=== PATIENT | male | born 1980 | race Caucasian/White ===

== ENCOUNTER 2017-07-14 10:33 | Inpatient (IN) | payer BC ==
[2017-07-14] VITALS (15 sets, daily range): BP systolic 102–163; BP diastolic 59–96
[~2017-07-14] VITALS: Ht 175.3 cm; Wt 152.6 kg
[~2017-07-14 10:33] MED LIST: ASP81CT GT; ASP81CT PO; DIGO0.25 PO; DIGO250T PO; FURO20TA4 PO; KCL20TCR PO; LOSA100T16 PO; LOSA100T7 PO; METO25TA PO; POTA20LI2 PO
[2017-07-14] MEDS ORDERED: ADENOSINE 6 MG/2 ML (ADENOCARD) VIAL IV ONE (10:38)
[2017-07-14] MEDS ORDERED: NS IV 500 ML 500 ML ONE (10:38)
[2017-07-14] MEDS ORDERED: DILTIAZEM 25 MG/5 ML INJ (CARDIZEM) VIAL ONE (10:46)
[2017-07-14] MEDS ORDERED: DILTIAZEM 100 MG/VIAL (CARDIZEM) ADD-VANTAGE IV ONE ×2 (10:54→15:53)
[2017-07-14] MEDS ORDERED: SODIUM CHLORIDE (ADD-VANTAGE) 100 ML IV ONE ×2 (10:54→15:53)
[2017-07-14] MEDS ORDERED: ASPIRIN 81 MG CHEW (CHILDREN'S ASA) PO ONE (11:00)
--- NOTE | 2017-07-14 11:10 | ED Cardiac General ---
History of Present Illness General Chief Complaint: Cardiac/General Problems Stated Complaint: HEART BEATING TOO FAST PER DR PENA Source: patient, family Exam Limitations: no limitations History of Present Illness Time seen by provider: 11:00 Initial Comments The patient is a 36-year-old white male who presents with complaints of palpitations and shortness of breath. He reports that this began several days ago. He saw Dr. Chavez 2 days ago and confirmed that he had a rapid heart rate. Apparently no medications were prescribed. This continued. He has not been able to lie down to breathe or sleep and spent last night sitting up. He had decided at this point that he had to have help. He denies previous heart disease. He is diabetic and obese. He denies chest pain even with the palpitations. Timing/Duration: 2-3 days Modifying Factors: improves with exercise, improves with lying down Associated Systoms: Shortness of Air, Weakness Allergies and Home Medications Allergies Coded Allergies: No Known Drug Allergies (Unverified , 08/27/13) Home Medications Aspirin 81 Mg Chew, 81 MG PO DAILY, (Reported) Digoxin 250 Mcg Tablet, 250 MCG PO DAILY, (Reported) Furosemide 20 Mg Tablet, 60 EACH PO BID, (Reported) TAKE 3 OF THE 20 MG TABLETS TWICE A DAY Losartan Potassium 100 Mg Tablet, 100 MG PO DAILY, (Reported) Metoprolol Succinate 25 Mg Tab.sr.24h, 25 MG PO DAILY, (Reported) Potassium Chloride 20 Meq Tabsr, 20 EACH PO BID, (Reported) Review of Systems Constitutional: see HPI, diaphoresis, dizziness, weakness EENTM: No Symptoms Reported Respiratory: See HPI, Shortness of Air, SOA With Exertion, SOA at Rest Cardiovascular: Palpitations Gastrointestinal: No Symptoms Reported Genitourinary: No Symptoms Reported Musculoskeletal: no symptoms reported Skin: other (swelling of feet and discoloration of the skin in the crew sock area) Psychiatric/Neurological: Anxiety Past Ypqencz-Rpdgwm-Rlvjvg Hx Patient Social History Recent Foreign Travel: No Contact w/Someone Who Travel: No Immunizations Up To Date Date of Influenza Vaccine: Aug 28, 2013 Seasonal Allergies Seasonal Allergies: No HEENT Loss of Vision: Denies Hearing Impairment: Denies Blood Transfusions Adverse Reaction to a Blood Tr: No Family Medical History Significant Family History: Heart Disease, CVA, Hypertension Physical Exam Vital Signs Capillary Refill : General Appearance: Moderate Distress HEENT: Normal ENT Inspection Neck: Normal Inspection (no did not feel anything is the bathroom landing 149 1. The anything to see Nubia like I I was usually likely [place] visit either reveals that there was blood with her that I could not tell or otherwise that) Respiratory: Chest Non Tender, Lungs Clear, Normal Breath Sounds, No Accessory Muscle Use, No Respiratory Distress Cardiovascular: Tachycardia, Other (diaphoresis) Gastrointestinal: Normal Bowel Sounds, No Organomegaly, No Pulsatile Mass, Non Tender Extremity: Other (2+ pedal edema and bronzy discoloration suggestive of chronic venous stasis) Neurologic/Psychiatric: Alert, Oriented x3, No Motor/Sensory Deficits, Normal Mood/Affect Skin: Normal Color, Warm/Dry Lymphatic: No Adenopathy Progress/Results/Core Measures Results/Orders Lab Results Laboratory Tests Test 07/14/17 10:55 07/14/17 11:25 Range/Units White Blood Count 12.1 H 4.3-11.0 10^3/uL Red Blood Count 4.52 4.35-5.85 10^6/uL Hemoglobin 13.9 13.3-17.7 G/DL Hematocrit 44 40-54 % Mean Corpuscular Volume 98 80-99 FL Mean Corpuscular Hemoglobin 31 25-34 PG Mean Corpuscular Hemoglobin Concent 31 L 32-36 G/DL Red Cell Distribution Width 15.8 H 10.0-14.5 % Platelet Count 213 130-400 10^3/uL Mean Platelet Volume 7.4-10.4 FL Neutrophils (%) (Auto) 81 H 42-75 % Lymphocytes (%) (Auto) 11 L 12-44 % Monocytes (%) (Auto) 7 0-12 % Eosinophils (%) (Auto) 1 0-10 % Basophils (%) (Auto) 1 0-10 % Neutrophils # (Auto) 9.7 H 1.8-7.8 X 10^3 Lymphocytes # (Auto) 1.3 1.0-4.0 X 10^3 Monocytes # (Auto) 0.8 0.0-1.0 X 10^3 Eosinophils # (Auto) 0.1 0.0-0.3 10^3/uL Basophils # (Auto) 0.1 0.0-0.1 10^3/uL My Orders Orders - NICHO AGUILAR MD Adenosine Injection (Adenocard Injection (07/14/17 10:38) Ns Iv 500 Ml (Sodium Chloride 0.9%) (07/14/17 10:38) Ekg Tracing (07/14/17 10:53) Continuous Ekg Monitoring (07/14/17 10:53) Diltiazem Injection (Cardizem Injection) (07/14/17 10:46) Diltiazem Drip (Cardizem Drip) (07/14/17 10:54) Sodium Chloride (Add-[place]) (Ns (Add-V (07/14/17 10:54) Departure Communication (Admissions) Progress Notes 1130 discussed with STUART Morris. The patient will be transferred to the ICU. He recommends metoprolol 5 mg IV now and every 3 hours. The rate remains in the 155 range. It is now noted that he is showing signs of relative hypoxia. Chest x-ray as ready by me shows cardiomegaly and diffuse interstitial edema. Cosleep Impression Impression: Primary Impression: supraventricular tachycardia Disposition: ADMITTED INPATIENT Condition: Stable/Unchanged Admissions Decision to Admit Reason: Admit from ER (General) Decision to Admit/Date: Jul 14, 2017 Time/Decision to Admit Time: 11:36 Transfer Time Spoke to Accepting Phy: 11:37 Departure-Patient Inst. Referrals: TATA CHAVEZ MD (PCP/Family) Primary Care Physician NICHO AGUILAR MD Jul 14, 2017 11:09
[2017-07-14 11:15] LABS: BASOPHILS # (AUTO) 0.1 10^3/uL (0.0-0.1); BASOPHILS % (AUTO) 1 % (0-10); EOSINOPHILS # (AUTO) 0.1 10^3/uL (0.0-0.3); EOSINOPHILS % (AUTO) 1 % (0-10); LYMPHOCYTES # (AUTO) 1.3 X 10^3 (1.0-4.0); LYMPHOCYTES % (AUTO) 11 % (12-44); MEAN CORPUSCULAR HEMOGLOBIN 31 PG (25-34); MEAN CORPUSCULAR HGB CONC 31 G/DL (32-36); MEAN CORPUSCULAR VOLUME 98 FL (80-99); MONOCYTES # (AUTO) 0.8 X 10^3 (0.0-1.0); MONOCYTES % (AUTO) 7 % (0-12); NEUTROPHILS # (AUTO) 9.7 X 10^3 (1.8-7.8); NEUTROPHILS % (AUTO) 81 % (42-75); PLATELET COUNT 213 10^3/uL (130-400); RED BLOOD COUNT 4.52 10^6/uL (4.35-5.85); RED CELL DISTRIBUTION WIDTH 15.8 % (10.0-14.5); WHITE BLOOD COUNT 12.1 10^3/uL (4.3-11.0)
[2017-07-14] MEDS ORDERED: meTOprolol 5 MG/5 ML (LOPRESSOR) VIAL ONE (11:25)
[2017-07-14] MEDS ORDERED: FUROSEMIDE 40 MG/4 ML INJ (LASIX) ONE (11:33)
--- NOTE | 2017-07-14 11:40 | Diagnostic Imaging Report ---
INDICATION: Tachycardia. FINDINGS: There is enlargement of the cardiac silhouette, prominence of the vascularity, and five lobe mixed interstitial and airspace opacity suspicious for pulmonary edema. There is slight hazy indistinctness to the costophrenic angles which may reflect small volumes of pleural fluid. IMPRESSION: Abnormality suggests failure pattern with cardiomegaly, venous hypertension, pulmonary edema, and possible pleural fluid. Dictated by: Dictated on workstation # [id number]
[2017-07-14] MEDS ORDERED: FUROSEMIDE 40 MG/4 ML INJ (LASIX) IVP ONE (11:45)
[2017-07-14 11:48] LABS: INR 1.1 (0.8-1.4); PROTHROMBIN TIME PATIENT 14.3 SEC (12.2-14.7)
[2017-07-14 11:56] LABS: ALANINE AMINOTRANSFERASE 76 U/L (0-55); ALBUMIN 4.1 GM/DL (3.2-4.5); ANION GAP 13 MMOL/L (5-14); ASPARTATE AMINO TRANSFERASE 67 U/L (5-34); BILIRUBIN,TOTAL 1.4 MG/DL (0.1-1.0); BLOOD UREA NITROGEN 18 MG/DL (7-18); BUN/CREATININE RATIO 18; CALCIUM 9.4 MG/DL (8.5-10.1); CARBON DIOXIDE 24 MMOL/L (21-32); CHLORIDE 101 MMOL/L (98-107); CREATININE SERUM 0.99 MG/DL (0.60-1.30); GFR ESTIMATED > 60; GLUCOSE 330 MG/DL (70-105); MAGNESIUM 1.9 MG/DL (1.8-2.4); POTASSIUM 4.3 MMOL/L (3.6-5.0); SODIUM 138 MMOL/L (135-145); TOTAL PROTEIN 7.5 GM/DL (6.4-8.2)
[2017-07-14 12:02] LABS: MYOGLOBIN SERUM 49.7 NG/ML (10.0-92.0)
[2017-07-14] MEDS ORDERED: DIGOXIN 0.25 MG/ML (LANOXIN) 2 ML AMP ONE (12:11)
[2017-07-14] MEDS ORDERED: LIDOCAINE UROJET 2% GEL 10 ML PKG ONE (12:19)
[2017-07-14] MEDS ORDERED: HYDR25TA4 PO (12:27)
[2017-07-14] MEDS ORDERED: NIFE-7 PO (12:27)
[2017-07-14] MEDS ORDERED: METF500T4 PO (12:27)
[2017-07-14] MEDS ORDERED: INSU100I10 SQ (12:27)
[2017-07-14] MEDS ORDERED: SPIR25TA3 PO (12:27)
[2017-07-14] MEDS ORDERED: DIGOXIN 0.25 MG/ML (LANOXIN) 2 ML AMP IV NR ×3 (12:30→14:30)
[2017-07-14] MEDS ORDERED: meTOprolol 5 MG/5 ML (LOPRESSOR) VIAL IV SCH (12:30)
[2017-07-14] MEDS ORDERED: CATHETER FLUSH 10 ML SYR IV PRN (12:30)
[2017-07-14 12:49] LABS: BILIRUBIN,URINE NEGATIVE (NEGATIVE); KETONES,URINE NEGATIVE (NEGATIVE); LEUKOCYTE ESTERASE ,URINE 1+ (NEGATIVE); NITRITE,URINE NEGATIVE (NEGATIVE); PH,URINE 5 (5-9); PROTEIN,URINE 3+ (NEGATIVE); UROBILINOGEN,URINE 1 MG/DL (NORMAL)
[2017-07-14 13:00] LABS: SQUAMOUS EPITHELIAL CELL,UR 0-2 /HPF; WBC,URINE 0-2 /HPF
--- NOTE | 2017-07-14 13:30 | Consultation-Cardiology ---
HPI-Cardiology Cardiology Consultation: Date of Consultation 07/14/17 Time Seen by Provider: 13:00 Date of Admission Attending Physician Allison Paredes DO Admitting Physician Juan Ritchie MD Consulting Physician STUART CUELLAR MD, MA, FACP, FACC, FSCAI, CCDS HPI: Chief Complaint: Malaise and shortness of breath HPI: 36 yo man who has not felt well today. Has had malaise and shortness of breath. Denies cp or palp. Went to see his pcp. Was diagnosed with tachycardia and sent to the ER. He has been treated for A Fib/Fl in this ER and feels somewhat better. He has been treated with iv furosemide and supplemental oxygen , as well, today. Has chronic leg swelling Review of Systems-Cardiology Review of Systems Constitutional: As described under HPI Eyes: No vision change Ears/Nose/Throat: No ear discharge, No nasal drainage, No recent hearing loss Respiratory: As described under HPI Cardiovascular: As described under HPI Gastrointestinal: No constipation, No diarrhea, No nausea, No vomiting Genitourinary: No dysuria, No hematuria, No urine frequency changes Musculoskeletal: No back pain, No joint pain Skin: No rash, No ulcerations Psychiatric/Neurological: No seizure, No focal weakness Hematologic: No bleeding abnormalities [facility] Hx Patient Social History Alcohol Use: Denies Use Recreational Drug Use: No Smoking Status: Never a Smoker Recent Foreign Travel: No Recent Infectious Disease Expo: No Hospitalization with Isolation: Denies Physical Abuse Screen: No Sexual Abuse: No Immunizations Up To Date Date of Influenza Vaccine: Aug 28, 2013 Past Medical History PMH As described under Assessment. Family Medical History Family Medical History: He does not report fam h/o or early CAD or SCD Allergies and Home Medications Allergies Coded Allergies: No Known Drug Allergies (Unverified , 08/27/13) Home Medications Aspirin 81 Mg Chew, 81 MG PO DAILY, (Reported) Hydrochlorothiazide 25 Mg Tablet, (Reported) Insulin Glargine,Hum.rec.anlog 100 Unit/1 Ml Insuln.pen, 30 UNITS SQ HS, ( Reported) Metformin HCl 500 Mg Tablet, (Reported) Nifedipine 30 Mg Tablet.er, (Reported) Spironolactone 25 Mg Tablet, (Reported) Physical Exam-Cardiology Physical Exam Vital Signs/I&O Vital Sign - Last 12Hours 9/1407/14/17 07/14/17 07/14/17 10:33 10:33 11:06 11:55 Temp 96.1 Pulse 157 156 123 Resp 36 30 30 B/P (MAP) 201/124 141/84 Pulse Ox 91 91 91 91 O2 Delivery Nasal Cannula Nasal Cannula OxyMask O2 Flow Rate 4.00 4.00 4.00 4.00 FiO2 89 07/14/17 12:58 O2 Delivery OxyMask O2 Flow Rate 8.00 Capillary Refill : Less Than 3 Seconds Constitutional: well-developed, well-nourished, other (obese) HEENT: PERRL, EOMI, No xanthelasmas are seen Neck: carotid pulses are 2 + bilaterally, with good upstrokes Respiratory: No accessory muscle use, other (fair air entry; some basal fine and coarse crackles) Cardiovascular: irregularly irregular, S1 and S2, systolic murmur (faint YOU at cardiac base) Gastrointestinal: No tender, soft, No guarding, No rebound, audible bowel sounds Extremities: No clubbing, No cyanosis, significant edema (1-2 edema of both legs) Neurologic/Psychiatric: oriented x 3, grossly intact, power is 5/5 both on sides Skin: No rash on exposed areas, No ulcerations on exposed areas Data Review Labs Laboratory Tests 07/14/17 10:55: White Blood Count 12.1H, Red Blood Count 4.52, Hemoglobin 13.9, Hematocrit 44, Mean Corpuscular Volume 98, Mean Corpuscular Hemoglobin 31, Mean Corpuscular Hemoglobin Concent 31L, Red Cell Distribution Width 15.8H, Platelet Count 213, Mean Platelet Volume , Neutrophils (%) (Auto) 81H, Lymphocytes (%) (Auto) 11L, Monocytes (%) (Auto) 7, Eosinophils (%) (Auto) 1, Basophils (%) (Auto) 1, Neutrophils # (Auto) 9.7H, Lymphocytes # (Auto) 1.3, Monocytes # (Auto) 0.8, Eosinophils # (Auto) 0.1, Basophils # (Auto) 0.1 07/14/17 11:25: Prothrombin Time 14.3, INR Comment 1.1, Activated Partial Thromboplast Time 28, Sodium Level 138, Potassium Level 4.3, Chloride Level 101, Carbon Dioxide Level 24, Anion Gap 13, Blood Urea Nitrogen 18, Creatinine 0.99, Estimat Glomerular Filtration Rate > 60, BUN/Creatinine Ratio 18, Glucose Level 330H, Calcium Level 9.4, Magnesium Level 1.9, Total Bilirubin 1.4H, Aspartate Amino Transf ( AST/SGOT) 67H, Alanine Aminotransferase (ALT/SGPT) 76H, Alkaline Phosphatase 61 , Myoglobin 49.7, Troponin I < 0.30, B-Type Natriuretic Peptide 364.5H, Total Protein 7.5, Albumin 4.1 07/14/17 12:40: Urine Color AMBERH, Urine Clarity VERY CLOUDYH, Urine pH 5, Urine Specific [place] 1.020, Urine Protein 3+H, Urine Glucose (UA) 3+H, Urine Ketones NEGATIVE , Urine Nitrite NEGATIVE, Urine Bilirubin NEGATIVE, Urine Urobilinogen 1, Urine Leukocyte Esterase 1+H, Urine RBC (Auto) 2+H, Urine RBC 2-5H, Urine WBC 0-2, Urine Squamous Epithelial Cells 0-2, Urine Crystals PRESENTH, Urine Amorphous Sediment FEW LAUREN URATESH, Urine Bacteria FEWH, Urine Casts PRESENT, Urine Hyaline Casts 2-5H, Urine Mucus SMALLH, Urine Culture Indicated NO Laboratory Tests 07/14/17 10:55 07/14/17 11:25 A/P-Cardiology Assessment/Admission Diagnosis PAF with RVR, first diagnosed on 07/14/17, age of onset unknown Ac diastolic CHF Obesity (BMI approx 50) Obesity-hypoventilation syndrome Suspected sleep apnea DM II Hypertension Discussion and Recomendations * iv dilt and dig for vent rate control * BB for prn use if dilt and dig inadequate * Apixaban for stroke prophylaxis * iv diuretics for CHF * Echo to eval LV and valve function * Advised efforts at wgt loss * Advised sleep studies Clinical Quality Measures DVT/VTE Risk/Contraindication: Risk Factor Score Per Nursin RFS Level Per Nursing on Admit: 2=Moderate STUART CUELLAR MD FACP FAC CCDS Jul 14, 2017 13:30
[2017-07-14] MEDS ORDERED: FUROSEMIDE 40 MG/4 ML INJ (LASIX) IVP NR (13:45)
[2017-07-14] MEDS ORDERED: KCL 20 MEQ TAB (K-DUR) PO NR (13:45)
[2017-07-14] MEDS ORDERED: ASPI-983 PO (14:27)
[2017-07-14] MEDS: CATHETER FLUSH 10 ML SYR IV SCH ×2 (14:30→22:12)
[2017-07-14] MEDS ORDERED: NS (IVPB) 50 ML ONE (15:07)
[2017-07-14] MEDS ORDERED: VANCOMYCIN INJECTION 0.1 MG in NS (IVPB) 250 ML IV SCH (15:30)
[2017-07-14] MEDS ORDERED: PIPERACILLIN/TAZOBACTAM 4.5 GM/NS 100 ML IV NR ×2 (15:45)
[2017-07-14] MEDS ORDERED: VANCOMYCIN INJECTION 2,250 MG in NS IV 500 ML 500 ML IV NR (16:00)
[2017-07-14] MEDS ORDERED: meTOprolol 5 MG/5 ML (LOPRESSOR) VIAL IV PRN (16:00)
[2017-07-14] MEDS: DEXMEDETOMIDINE INJECTION 400 MCG in NS (IVPB) 100 ML IV SCH (16:05)
--- NOTE | 2017-07-14 16:07 | Diagnostic Imaging Report ---
INDICATION: Respiratory distress. EXAMINATION: Portable erect AP chest at 3:49 p.m. FINDINGS: The appearance of the chest has worsened since the prior exam of 07/14/17 as new areas of pneumonia/atelectasis have developed in both lung bases, particularly on the right. The cardiomegaly and pulmonary congestion, seen on the prior study, are again evident and no different. The mediastinum is not widened. The osseous structures are intact. IMPRESSION: The appearance of the chest has worsened since the prior exam as there is greater involvement of both lower lobes by pneumonia/atelectasis, particularly on the right. There is also persistent cardiomegaly and pulmonary congestion. A followup exam would recommended for continued evaluation. Dictated by: Dictated on workstation # [id number]
[2017-07-14] MEDS ORDERED: DILTIAZEM DRIP 100 MG in SODIUM CHLORIDE (ADD-VANTAGE) 100 ML IV SCH (16:15)
[2017-07-14] MEDS ORDERED: inSUlin (REGULAR) HUMAN 1 UNIT/0.01 ML (CHARGE PER UNIT) ONE ×2 (16:17→16:21)
[2017-07-14] MEDS: inSUlin (REGULAR) HUMAN 1 UNIT/0.01 ML (CHARGE PER UNIT) SC SCH ×3 (16:28→22:12)
[2017-07-14 16:43] LABS: ABG BASE EXCESS 0.6 MMOL/L (-2.5-2.5); ABG HCO3 26 MMOL/L (23-27); ABG OXYGEN SATURATION 97 % (94-100); ABG PCO2 51 MMHG (35-45); ABG PO2 79 MMHG (79-93); ABG TCO2 27.6 MMOL/L (21.0-31.0)
[2017-07-14] MEDS ORDERED: APIXABAN 5 MG (ELIQUIS) TABLET PO NR (16:45)
[2017-07-14 16:47] LABS: ABG PH 7.32 (7.37-7.43)
[2017-07-14 16:48] LABS: PATIENT TEMP 97.9
[2017-07-14] MEDS ORDERED: NON-FORMULARY MEDICATION 1 EA EA (Insulin Glargine,Hum.rec.anlog (Lantus Solostar) 30 UNIT SQ SCH (21:00)
[2017-07-14] MEDS: ASPIRIN E.C. 81 MG (ECOTRIN) TAB PO SCH (22:10)
[2017-07-14] MEDS: PIPERACILLIN SODIUM/TAZOBACTAM 4.5 GM in NS (IVPB) 100 ML IV SCH (22:11)
[2017-07-14] MEDS: inSUlin DETERMIR 1 UNIT/0.01 ML (LEVEMIR) CHARGE PER UNIT SQ SCH (22:11)
[2017-07-14] MEDS ORDERED: guaiFENesin/DM (ROBITUSSIN DM) 10 ML UDC PO PRN (22:45)
[2017-07-15] VITALS (24 sets, daily range): BP systolic 75–186; BP diastolic 55–114
[2017-07-15] MEDS ORDERED: inSUlin ASPART (NovoLOG) 1 UNIT/0.01 ML (CHARGE PER UNIT) SC SCH
[2017-07-15] MEDS ORDERED: CALCIUM CARBONATE 500 MG (TUMS) TAB.CHEW PO PRN (02:30)
[2017-07-15] MEDS ORDERED: ONDANSETRON 4 MG/2 ML (SDV) Z0FRAN ONE (03:24)
[2017-07-15] MEDS ORDERED: ONDANSETRON 4 MG/2 ML (SDV) Z0FRAN IVP PRN (03:45)
[2017-07-15] MEDS: DEXMEDETOMIDINE INJECTION 400 MCG in NS (IVPB) 100 ML IV SCH (04:01)
[2017-07-15] MEDS: VANCOMYCIN 2000 MG/NS 500 ML IVPB IV SCH ×4 (04:01→17:33)
[2017-07-15 04:07] LABS: BASOPHILS % (AUTO) 0 % (0-10); EOSINOPHILS # (AUTO) 0.1 10^3/uL (0.0-0.3); EOSINOPHILS % (AUTO) 0 % (0-10); LYMPHOCYTES # (AUTO) 0.4 X 10^3 (1.0-4.0); LYMPHOCYTES % (AUTO) 3 % (12-44); MEAN CORPUSCULAR HEMOGLOBIN 31 PG (25-34); MEAN CORPUSCULAR HGB CONC 31 G/DL (32-36); MEAN CORPUSCULAR VOLUME 99 FL (80-99); MEAN PLATELET VOLUME 12.1 FL (7.4-10.4); MONOCYTES # (AUTO) 0.9 X 10^3 (0.0-1.0); MONOCYTES % (AUTO) 7 % (0-12); NEUTROPHILS # (AUTO) 12.4 X 10^3 (1.8-7.8); NEUTROPHILS % (AUTO) 90 % (42-75); PLATELET COUNT 182 10^3/uL (130-400); RED BLOOD COUNT 4.29 10^6/uL (4.35-5.85); RED CELL DISTRIBUTION WIDTH 15.5 % (10.0-14.5); WHITE BLOOD COUNT 13.9 10^3/uL (4.3-11.0)
[2017-07-15 04:26] LABS: ALANINE AMINOTRANSFERASE 61 U/L (0-55); ALBUMIN 3.9 GM/DL (3.2-4.5); ANION GAP 16 MMOL/L (5-14); ASPARTATE AMINO TRANSFERASE 31 U/L (5-34); BILIRUBIN,TOTAL 2.2 MG/DL (0.1-1.0); BLOOD UREA NITROGEN 20 MG/DL (7-18); BUN/CREATININE RATIO 23; CALCIUM 9.3 MG/DL (8.5-10.1); CARBON DIOXIDE 25 MMOL/L (21-32); CHLORIDE 99 MMOL/L (98-107); CREATININE SERUM 0.86 MG/DL (0.60-1.30); GFR ESTIMATED > 60; GLUCOSE 255 MG/DL (70-105); PHOSPHORUS 4.3 MG/DL (2.3-4.7); POTASSIUM 4.4 MMOL/L (3.6-5.0); SODIUM 140 MMOL/L (135-145); TOTAL PROTEIN 7.2 GM/DL (6.4-8.2)
[2017-07-15 04:27] LABS: CHOLESTEROL 121 MG/DL (< 200); DIRECT LDL 60 MG/DL (1-129); TRIGLYCERIDES 176 MG/DL (<150); VLDL CHOLESTEROL 35 MG/DL (5-40)
[2017-07-15 04:46] LABS: THYROID STIMULATING HORMONE 1.51 UIU/ML (0.35-4.94)
[2017-07-15 05:01] LABS: EOSINOPHILS % (MANUAL) 1 %; LYMPHOCYTES % (MANUAL) 4 %; NEUTROPHILS % (MANUAL) 91 %
[2017-07-15 05:23] LABS: OCCULT BLOOD NEGATIVE QC NEGATIVE (NEGATIVE); OCCULT BLOOD POSITIVE QC POSITIVE (POSITIVE); OCCULT BLOOD,GASTRIC FLUID POSITIVE (NEGATIVE)
--- NOTE | 2017-07-15 06:04 | Pulmonary Consultation ---
History of Present Illness History of Present Illness Date of Consultation 07/15/17 05:59 Time Seen by Provider: 05:59 Date of Admission History of Present Illness 36yo presented seocndary to [facility] and malaise was found to have tachycardia and sent to the ED. Was found to be in Afib/flutter RVR placed on Cardizem gtt and admitted to ICU. Pt initially required BiPAP was given Lasix which helped oxygenation and is now requiring NC at 3liters. While on BiPAP pt vomited into CPAP mask. Patient has also had ground glass emesis and this was sent for gastric occult testing. I am consulted for ICU management. Allergies and Home Medications Allergies Coded Allergies: No Known Drug Allergies (Unverified , 08/27/13) Home Medications Aspirin 81 Mg Tablet.dr, 81 MG PO HS, (Reported) Hydrochlorothiazide 25 Mg Tablet, 25 MG PO DAILY, (Reported) Insulin Glargine,Hum.rec.anlog 100 Unit/1 Ml Insuln.pen, 30 UNITS SQ HS, ( Reported) Metformin HCl 500 Mg Tablet, 500 MG PO TIDWM, (Reported) Nifedipine 30 Mg Tablet.er, 30 MG PO BID, (Reported) Spironolactone 25 Mg Tablet, 25 MG PO DAILY, (Reported) Past Rxktjlg-Tdcxoh-Swjmxw Hx Patient Social History Alcohol Use: Denies Use Recreational Drug Use: No Smoking Status: Never a Smoker Recent Foreign Travel: No Contact w/Someone Who Travel: No Recent Infectious Disease Expo: No Recent Hopitalizations: No Physical Abuse: No Sexual Abuse: No Immunizations Up To Date Date of Influenza Vaccine: Aug 28, 2013 Seasonal Allergies Seasonal Allergies: No Surgeries History of Surgeries: No Respiratory History of Respiratory Disorde: No Cardiovascular History of Cardiac Disorders: Yes (CHF) Cardiac Disorders: Hypertension Neurological History of Neurological Disord: No Gastrointestinal History of Gastrointestinal Di: No Musculoskeletal History of Musculoskeletal Dis: No Endocrine History of Endocrine Disorders: Yes Endocrine Disorders: Diabetes, Insulin dep HEENT History of HEENT Disorders: No Loss of Vision: Denies Hearing Impairment: Denies Cancer History of Cancer: No Psychosocial History of Psychiatric Problem: No Suicide Risk Score: 0 Integumentary History of Skin or Integumenta: No Blood Transfusions History of Blood Disorders: No Adverse Reaction to a Blood Tr: No Family Medical History Significant Family History: Heart Disease, CVA, Hypertension Review of Systems Time Seen by Provider: 06:13 Constitutional: Sweats, Weakness, Malaise, No: Fever, Chills, Other Eyes: No: Pain, Vision change, Conjunctivae inflammation, Eyelid inflammation, Other, Redness ENT: No: Ear pain, Ear discharge, Nose pain, Nose discharge, Nose congestion, Mouth pain, Mouth swelling, Throat pain, Throat swelling, Other Respiratory: Cough, Dry, Shortness of breath, SOB with excertion Cardiovascular: Palpitations, Orthopnea, Paroxysmal Noc. Dyspnea, Edema, Lt Headedness Gastrointestinal: Nausea, Vomiting, Constipation, No: Abdominal Pain, Diarrhea , Melena, Hematochezia, Other Genitourinary: No Dysuria, No Frequency, No Incontinence, No Hematuria, No Retention, No Other Neurological: Weakness, Incoordination, Confusion Exam Exam Vital Signs Date Time Temp Pulse Resp B/P (MAP) Pulse Ox O2 Delivery O2 Flow Rate FiO2 07/15/17 04:00 71 19 131/63 97 High Flow N/C 5.00 07/15/17 04:00 97.7 07/15/17 04:00 96 High Flow N/C 5.00 07/15/17 03:00 72 10 139/63 98 High Flow N/C 5.00 07/15/17 02:50 98 High Flow N/C 5.00 07/15/17 02:00 71 19 136/71 99 NIV Bilevel 50.00 07/15/17 01:45 71 15 129/66 100 NIV Bilevel 50.00 07/15/17 01:39 71 20 100 60.00 07/15/17 01:00 71 34 130/61 98 NIV Bilevel 60.00 07/15/17 01:00 71 07/15/17 00:18 96.5 NIV Bilevel 60.00 07/15/17 00:00 94 NIV Bilevel 60 07/15/17 00:00 71 17 136/65 98 NIV Bilevel 70.00 07/14/17 23:00 70 19 133/65 100 NIV Bilevel 70.00 07/14/17 22:09 70 24 100 70.00 07/14/17 22:00 92 14 137/62 100 NIV Bilevel 70.00 07/14/17 21:00 88 36 144/75 100 NIV Bilevel 70.00 07/14/17 20:00 94 NIV Bilevel 70 07/14/17 20:00 70 14 124/64 100 NIV Bilevel 70.00 07/14/17 19:45 96.9 70 24 125/63 100 NIV Bilevel 70.00 07/14/17 19:12 NIV Bilevel 70.00 07/14/17 19:08 68 29 100 75.00 07/14/17 19:00 70 18 117/64 100 NIV Bilevel 75.00 07/14/17 19:00 70 07/14/17 18:00 66 30 126/69 96 NIV Bilevel 75.00 07/14/17 17:00 53 25 112/64 94 NIV Bilevel 75.00 07/14/17 16:14 67 104/65 07/14/17 16:07 98.9 68 07/14/17 16:00 68 32 102/59 96 NIV Bilevel 70.00 07/14/17 16:00 98.3 07/14/17 16:00 92 OxyMask 80.00 89 07/14/17 15:27 73 25 92 80.00 07/14/17 15:15 100 25 93 70.00 07/14/17 15:00 92 33 126/68 87 OxyMask 10.00 07/14/17 14:00 141 20 153/96 92 OxyMask 8.00 07/14/17 13:00 98.2 125 25 134/94 94 OxyMask 8.00 07/14/17 13:00 142 07/14/17 12:58 OxyMask 8.00 07/14/17 11:55 123 30 91 OxyMask 4.00 07/14/17 11:06 156 30 141/84 91 4.00 07/14/17 10:33 96.1 157 36 201/124 91 Nasal Cannula 4.00 07/14/17 10:33 91 Nasal Cannula 4.00 89 General Appearance: Moderate Distress HEENT: Normal ENT Inspection Neck: Normal Inspection (no did not feel anything is the bathroom landing 149 1. The anything to see [place] like I I was usually likely [place] visit either reveals that there was blood with her that I could not tell or otherwise that) Respiratory: Chest Non Tender, Lungs Clear, Normal Breath Sounds, No Accessory Muscle Use, No Respiratory Distress Cardiovascular: Tachycardia, Other (diaphoresis) Capillary Refill: Less Than 3 Seconds Extremity: Other (2+ pedal edema and bronzy discoloration suggestive of chronic venous stasis) Neurologic/Psychiatric: Alert, Oriented x3, No Motor/Sensory Deficits, Normal Mood/Affect Skin: Normal Color, Warm/Dry Lymphatic: No Adenopathy Results Lab Laboratory Tests 07/14/17 10:55 07/14/17 11:25 07/15/17 03:16 Assessment/Plan Assessment/Plan Respiratory failure with pulmonary edema -BiPAP-- d/c secondary to nausea, oxygen -lasix -solumedrol Pneumonia with sepsis -continue vanco and zosyn -sauer cultures pending Afib RVR -cardizem gtt -Cardiology GIB upper - mild -gastric occult + -Protonix 40mg IV BID -monitor N/V -zofran 255 Clinical Quality Measures DVT/VTE Risk/Contraindication: Risk Factor Score Per Nursin RFS Level Per Nursing on Admit: 2=Moderate JESSIE MEYERS DO Jul 15, 2017 06:04
[2017-07-15] MEDS: inSUlin (REGULAR) HUMAN 1 UNIT/0.01 ML (CHARGE PER UNIT) SC SCH ×5 (06:14→21:40)
[2017-07-15] MEDS: PIPERACILLIN SODIUM/TAZOBACTAM 4.5 GM in NS (IVPB) 100 ML IV SCH ×3 (06:14→21:39)
[2017-07-15] MEDS: CATHETER FLUSH 10 ML SYR IV SCH ×3 (06:14→21:39)
[2017-07-15 06:40] LABS: ABG BASE EXCESS 7.1 MMOL/L (-2.5-2.5); ABG HCO3 33 MMOL/L (23-27); ABG OXYGEN SATURATION 94 % (94-100); ABG PCO2 63 MMHG (35-45); ABG PO2 66 MMHG (79-93); ABG TCO2 34.8 MMOL/L (21.0-31.0)
[2017-07-15 06:43] LABS: ALLENS TEST POSITIVE; PATIENT TEMP 97.7
[2017-07-15 06:44] LABS: ABG PH 7.34 (7.37-7.43)
--- NOTE | 2017-07-15 07:46 | Diagnostic Imaging Report ---
Portable upright radiograph of the chest. INDICATION: Shortness of breath, CHF. FINDINGS: There are mixed pulmonary infiltrates suggestive of pulmonary edema with markedly enlarged cardiac size. No significant effusion is evident. There are probable small effusions that are not well defined on this portable radiograph however. No pneumothorax. The mediastinum and dante appear unremarkable. IMPRESSION: Markedly enlarged cardiac size with pulmonary infiltrates likely related to pulmonary edema. There is slight improvement when compared to 07/14/2017, exam. Dictated by: Dictated on workstation # [id number]
--- NOTE | 2017-07-15 08:18 | Progress Note-Cardiology ---
Cardiology SOAP Progress Note Subjective: Sitting up in bed, mother at the bedside. Reports he has been nauseated most of the week. He had several episodes of emesis this morning. Denies any abdominal discomfort or nausea at this time. Denies any palpitations. Objective: I&O/Vital Signs Vital Sign - Last 12Hours 07/15/17 07/15/17 07/15/17 07/15/17 04:00 04:00 04:00 05:00 Temp 97.7 Pulse 71 81 Resp 19 18 B/P (MAP) 131/63 75/55 Pulse Ox 96 97 93 O2 Delivery High Flow N/C High Flow N/C High Flow N/C O2 Flow Rate 5.00 5.00 5.00 07/15/17 07/15/17 07/15/17 07/15/17 06:00 07:00 07:00 07:00 Temp 96.8 Pulse 107 71 73 71 Resp 20 20 22 B/P (MAP) 84/56 184/61 186/90 Pulse Ox 95 94 98 O2 Delivery High Flow N/C High Flow N/C High Flow N/C O2 Flow Rate 5.00 5.00 5.00 07/15/17 07/15/17 07/15/17 07/15/17 08:00 08:00 09:00 10:00 Pulse 73 73 74 Resp 18 16 18 B/P (MAP) 150/106 163/94 170/93 Pulse Ox 92 96 99 99 O2 Delivery High Flow N/C High Flow N/C High Flow N/C High Flow N/C O2 Flow Rate 5.00 5.00 5.00 5.00 07/15/17 07/15/17 07/15/17 07/15/17 11:00 12:00 12:00 13:00 Temp 98.5 Pulse 108 91 74 Resp 25 14 15 B/P (MAP) 145/85 148/75 Pulse Ox 96 94 96 98 O2 Delivery High Flow N/C NIV Bilevel High Flow N/C High Flow N/C O2 Flow Rate 5.00 50.00 5.00 5.00 07/15/17 14:00 Pulse 75 Resp 22 B/P (MAP) 161/91 Pulse Ox 99 O2 Delivery High Flow N/C O2 Flow Rate 5.00 Intake and Output 07/16/17 00:00 Intake Total 500 ml Output Total 500 ml Balance 0 ml Weight (Pounds): 339 Weight (Ounces): 6.0 Weight (Calculated Kilograms): 153.186161 Constitutional: well-developed, well-nourished, other (obese) Respiratory: No accessory muscle use, other (fair air entry; some basal fine and coarse crackles) Cardiovascular: irregularly irregular, S1 and S2, systolic murmur (faint YOU at cardiac base) Gastrointestional: No tender, soft, No guarding, No rebound, audible bowel sounds Extremities: No clubbing, No cyanosis, significant edema (1-2 edema of both legs) Neurologic/Psychiatric: oriented x 3, grossly intact, power is 5/5 both on sides Skin: No rash on exposed areas, No ulcerations on exposed areas Results/Procedures: Labs Laboratory Tests 07/14/17 16:20: Glucometer 286H 07/14/17 16:36: Blood Gas Puncture Site LT BRACH, Blood Gas Patient Temperature 97.9, Arterial Blood pH 7.32*L, Arterial Blood Partial Pressure CO2 51H, Arterial Blood Partial Pressure O2 79, Arterial Blood HCO3 26, Arterial Blood Total CO2 27.6, Arterial Blood Oxygen Saturation 97, Arterial Blood Base Excess 0.6, Steven Test NA, Blood Gas Ventilator Setting NO, Blood Gas Inspired Oxygen 75% 07/14/17 21:38: Glucometer 210H 07/15/17 03:16: White Blood Count 13.9H, Red Blood Count 4.29L, Hemoglobin 13.2L, Hematocrit 42 , Mean Corpuscular Volume 99, Mean Corpuscular Hemoglobin 31, Mean Corpuscular Hemoglobin Concent 31L, Red Cell Distribution Width 15.5H, Platelet Count 182, Mean Platelet Volume 12.1H, Neutrophils (%) (Auto) 90H, Lymphocytes (%) (Auto) 3L, Monocytes (%) (Auto) 7, Eosinophils (%) (Auto) 0, Basophils (%) (Auto) 0, Neutrophils # (Auto) 12.4H, Lymphocytes # (Auto) 0.4L, Monocytes # (Auto) 0.9, Eosinophils # (Auto) 0.1, Basophils # (Auto) 0.0, Neutrophils % (Manual) 91, Lymphocytes % (Manual) 4, Monocytes % (Manual) 4, Eosinophils % (Manual) 1, Blood Morphology Comment NORMAL, Sodium Level 140, Potassium Level 4.4, Chloride Level 99, Carbon Dioxide Level 25, Anion Gap 16H, Blood Urea Nitrogen 20H, Creatinine 0.86, Estimat Glomerular Filtration Rate > 60, BUN/Creatinine Ratio 23, Glucose Level 255H, Calcium Level 9.3, Phosphorus Level 4.3, Magnesium Level 2.0, Total Bilirubin 2.2H, Aspartate Amino Transf (AST/SGOT) 31 , Alanine Aminotransferase (ALT/SGPT) 61H, Alkaline Phosphatase 65, Total Protein 7.2, Albumin 3.9, Triglycerides Level 176H, Cholesterol Level 121, LDL Cholesterol Direct 60, VLDL Cholesterol 35, HDL Cholesterol 33L, Thyroid Stimulating Hormone (TSH) 1.51 07/15/17 05:00: Gastric Fluid Occult Blood POSITIVE 07/15/17 06:35: Blood Gas Puncture Site RIGHT RADIAL, Blood Gas Patient Temperature 97.7, Arterial Blood pH 7.34*L, Arterial Blood Partial Pressure CO2 63H, Arterial Blood Partial Pressure O2 66L, Arterial Blood HCO3 33H, Arterial Blood Total CO2 34.8H, Arterial Blood Oxygen Saturation 94, Arterial Blood Base Excess 7.1H , Steven Test POSITIVE, Blood Gas Ventilator Setting NO, Blood Gas Inspired Oxygen 4 L HI WILL 07/15/17 11:09: Glucometer 204H 07/15/17 13:25: Microbiology 07/14/17 MRSA Screen - Final, Complete MRSA not isolated A/P: Assessment: PAF with RVR, first diagnosed on 07/14/17, age of onset unknown - rates improved Dilated cardiomyopathy, etiology undetermined, suspect sleep apnea Echo of 07/15/17: mod to severe dilation of LV, severe dilation of LA, LVEF approx 35% Ac systolic and diastolic CHF Coffee ground emesis which was occult (+) this morning - suspected GI bleed Obesity (BMI approx 50) Obesity-hypoventilation syndrome Suspected sleep apnea DM II Hypertension - currently somewhat hypotensive Plan: * Complex management issue * Start oral Cardizem for rate control * iv diuretics for CHF * Echo to eval LV and valve function * Advised efforts at wgt loss * Advised sleep studies * Coffee ground emesis overnight which is occult (+) - advise scope to determine source of bleeding * Hold Eliquis for now d/t suspected GI bleed Physician Assessment Physician Assessment Shortness of breath is better. Has had nausea and vomiting Lungs: fair to good bilat air entry Cor: irreg Ext: mild edema, no c/c A&R * As documented in our note above that I update (italics) and as noted below * BB for rate control and cm * JANICE-inhib for cm and CHF * Hold anticoag until GI bleed investigated and treated * Have advised sleep studies * Have advised efforts at wgt loss * Will also need a cor ischemia w/u CORNELIA LAKHANI UPFITTER Jul 15, 2017 08:18 STUART CUELLAR MD FACP FAC CCDS Jul 15, 2017 15:37
[2017-07-15] MEDS ORDERED: APIXABAN 5 MG (ELIQUIS) TABLET PO SCH (09:00)
[2017-07-15] MEDS ORDERED: DILTIAZEM 180 MG (CARDIZEM CD) CAP PO SCH (09:00)
[2017-07-15] MEDS ORDERED: PANTOPRAZOLE 40 MG/10 ML (PROTONIX) VIAL IV SCH (09:00)
--- NOTE | 2017-07-15 11:42 | History & Physical-Hospitalist ---
HPI History of Present Illness: HPI/Chief Complaint CC: SVT/CHF HPI: This is a [address] Ritchie who presented to the ER with SVT/CHF. Dr. Zuñiga Review: Pt was on BiPAP last night and he vomited into mask and may have aspirated. Pt is covered on abx though Pt is currently on Cardizem drip Patient Interview: Pt states he is breathing a bit better today. Pt's mother believes he is doing much better Pt denies wearing a machine or O2 at home Pt denies experiencing pain. Pt denies stomach pain currently. Possible stomach ulcer was discussed Physical exam stable. Lungs sound perfect Minimal details due to moderate MR low cognition chronically Scribed by Radha Stephens under the direct supervision of Dr. Molina. Source: patient, RN/MD Exam Limitations: no limitations Date Seen 07/15/17 Time Seen by Provider: 10:00 Attending Physician Allison Molina Wen-Chou MD Referring Physician Date of Admission Jul 14, 2017 at 11:43 Home Medications & Allergies Home Medications Reviewed patient Home Medication Reconciliation Form Allergies Allergies Coded Allergies No Known Drug Allergies (Hdmzwszyup25/28/13) Past Pmauefs-Oiqdlg-[id number] Hx Patient Social History Marrital Status: single Employed/Student: unemployed Alcohol Use: Denies Use Recreational Drug Use: No Smoking Status: Never a Smoker Physical Abuse Screen: No Sexual Abuse: No Recent Foreign Travel: No Contact w/other who traveled: No Recent Hopitalizations: No Recent Infectious Disease Expo: No Immunizations Up To Date Date of Influenza Vaccine: Aug 28, 2013 Seasonal Allergies Seasonal Allergies: No Surgeries No Respiratory Yes Sleep Apnea Cardiovascular Yes (CHF) Atrial Fibrillation, Hypertension Neurological Yes Developmental Disorder Genitourinary No Gastrointestinal No Musculoskeletal No Endocrine History of Endocrine Disorders: Yes Endocrine Disorders: Diabetes, Insulin dep HEENT History of HEENT Disorders: No Loss of Vision: Denies Hearing Impairment: Denies Cancer No Psychosocial History of Psychiatric Problem: No Integumentary History of Skin or Integumenta: No Blood Transfusions History of Blood Disorders: No Adverse Reaction to a Blood Tr: No Family Medical History Significant Family History: Heart Disease, CVA, Hypertension Review of Systems Constitutional: see HPI, weakness EENTM: no symptoms reported Respiratory: cough, dyspnea on exertion, short of breath, wheezing Cardiovascular: no symptoms reported Gastrointestinal: no symptoms reported Genitourinary: decreased output Musculoskeletal: back pain Skin: no symptoms reported Psychiatric/Neurological: No Symptoms Reported All Other Systems Reviewed Negative Unless Noted: Yes Physical Exam Physical Exam Vital Signs Vital Sign - Last 12Hours 07/14/17 10:33 Temp 96.1 Pulse 157 Resp 36 B/P (MAP) 201/124 Pulse Ox 91 O2 Delivery Nasal Cannula O2 Flow Rate 4.00 FiO2 89 Capillary Refill : Less Than 3 Seconds General Appearance: No Apparent Distress, WD/WN, Chronically ill, Obese, Other (moderate mental retardation low cognition chronic) Eyes: Bilateral Eye Normal Inspection, Bilateral Eye PERRL HEENT: PERRL/EOMI, Normal ENT Inspection, Pharynx Normal Neck: Full Range of Motion, Normal Inspection, Non Tender, Supple, Carotid Bruit Respiratory: Chest Non Tender, No Accessory Muscle Use, No Respiratory Distress , Crackles, Decreased Breath Sounds, Wheezing Cardiovascular: No Edema, No Gallop, No JVD, No Murmur, Normal Peripheral Pulses, Irregularly Irregular, Tachycardia Gastrointestinal: Normal Bowel Sounds, No Organomegaly, No Pulsatile Mass, Non Tender, Soft Back: Normal Inspection, No CVA Tenderness, No Vertebral Tenderness Extremity: Normal Capillary Refill, Normal Inspection, Normal Range of Motion, Non Tender, No Calf Tenderness, No Pedal Edema Neurologic/Psychiatric: Alert, Oriented x3, No Motor/Sensory Deficits, Normal Mood/Affect Skin: Normal Color, Warm/Dry Lymphatic: No Adenopathy Results Results/Procedures Lab Laboratory Tests 07/14/17 10:55 07/14/17 11:25 07/15/17 03:16 Assessment/Plan Admission Diagnosis Assessment: Atrial fibrillation with rapid ventricular response with volume overload Probable aspiration pneumonitis after vomiting and BiPAP mask Severe super obesity Severe obstructive sleep apnea noncompliant with CPAP Diabetes mellitus Hypertension Assessment and Plan Plan: Maintain on abx Maintain on Cardizem drip Monitor O2 Monitor CXR Clinical Quality Measures DVT/VTE Risk/Contraindication: Risk Factor Score Per Nursin RFS Level Per Nursing on Admit: 2=Moderate ALLISON MOLINA DO Jul 15, 2017 11:42
[2017-07-15] MEDS ORDERED: MIDAZOLAM 2 MG/2 ML (VERSED) VIAL ONE ×4 (14:58→14:59)
[2017-07-15] MEDS ORDERED: fentaNYL INJECTION 100 MCG/2 ML AMP ONE (14:58)
[2017-07-15] MEDS ORDERED: HURRICAINE EXT TUBE (BENZOCAINE) ONE (14:59)
[2017-07-15] MEDS ORDERED: EPINEPHrine INJECTION 1 MG/ML AMP ONE (14:59)
[2017-07-15] MEDS ORDERED: TROUGH ORDER-PHARMACY XX NR (15:00)
[2017-07-15] MEDS ORDERED: NS IV 1000 ML 1,000 ML IV SCH (15:30)
[2017-07-15] MEDS ORDERED: lisINopril 10 MG (PRINIVIL) TAB PO NR (15:45)
[2017-07-15] MEDS: fentaNYL INJECTION 100 MCG/2 ML AMP IVP PRN ×2 (16:13→16:17)
[2017-07-15] MEDS: MIDAZOLAM 2 MG/2 ML (VERSED) VIAL IVP PRN ×2 (16:16→16:19)
--- NOTE | 2017-07-15 16:25 | Conscious Sedation/ASA ---
Conscious Sedation Pre-Proced Time Reviewed: 13:12 ASA Class: 3 Airway Mallampati Classification: (marshall appropriate class) I. II. III, IV Lungs Heart ASA score ASA 1: a normal healthy patient ASA 2: a patient with a mild systemic disease (mid diabetes, controlled hypertension, obesity ASA 3: a patient with a severe systemic disease that limits activity (angina , COPD, prior Myocardial infarction) ASA 4: a patient with an incapacitating disease that is a constant threat to life (CHF, renal failure) ASA 5: a moribund patient not expected to survive 24 hrs. (ruptured aneurysm) ASA 6: a declared brain patient whose organs are being harvested. For emergent operations, add the letter E after the classification Grade 2 Sedation Plan: Discussed options with patient/fam Note The patient is an appropriate candidate to undergo the planned procedure, sedation, and anesthesia. The patient immediately re-assessed prior to indication. BISI RAMSEY MD Jul 15, 2017 4:25 pm
--- NOTE | 2017-07-15 16:28 | Endo Procedure Record ---
Endo Procedure Report Date of Procedure Jul 15, 2017 Surgeon (s) BISI RAMSEY MD Post Procedure/Op Diagnosis grade 3 esophagitis. Multiple, nonbleeding distal gastric erosions and shallow ulcers. Multiple, nonbleeding duodenal erosions Procedure Performed upper GI endoscopy Description of Procedure Anesthesia Type: Conscious Sedation Specimen(s) collected/removed none Description of the Procedure Indication for procedure: This gentleman, who is being managed for cardiac arrhythmias, developed coffee-ground emesis and therefore it was felt reasonable to perform an upper endoscopy. Informed consent was obtained after reviewing the procedure in detail. Description of procedure: He was monitored in the intensive care unit in conscious sedation achieved using Versed and fentanyl. The flexible gastroscope was then introduced down the esophagus, past the stomach, into the proximal duodenum. Findings: Esophagus: Quite severe distal esophagitis with superficial ulcerations. 4. Documentation was obtained. Stomach: Multiple distal gastric erosions and shallow ulcers were found without any active bleeding. Duodenum: Multiple, nonbleeding erosions were found along the first part. He tolerated the procedure reasonably well. Impression: coffee-ground emesis due to gastric erosions and esophagitis. Will treat conservatively.: Copies To: STUART CUELLAR MD FACP FACC CCDS Copies To: MELODY MOLINA XAVIER M MD Jul 15, 2017 4:28 pm
[2017-07-15] MEDS ORDERED: NS IV 1000 ML 1,000 ML IV STA (16:51)
[2017-07-15] MEDS ORDERED: HURRICAINE EXT TUBE (BENZOCAINE) XX PRN (17:00)
[2017-07-15] MEDS ORDERED: SUCRALFATE 1 GM (CARAFATE) TAB PO ONE (21:00)
[2017-07-15] MEDS: PANTOPRAZOLE 40 MG/10 ML (PROTONIX) VIAL IV SCH (21:38)
[2017-07-15] MEDS: ASPIRIN E.C. 81 MG (ECOTRIN) TAB PO SCH (21:39)
[2017-07-15] MEDS: SUCRALFATE 1 GM (CARAFATE) TAB PO SCH (21:39)
[2017-07-15] MEDS: inSUlin DETERMIR 1 UNIT/0.01 ML (LEVEMIR) CHARGE PER UNIT SQ SCH (21:40)
[2017-07-16] VITALS (16 sets, daily range): BP systolic 98–184; BP diastolic 60–96
[2017-07-16] MEDS: VANCOMYCIN 2000 MG/NS 500 ML IVPB IV SCH ×2 (03:38)
[2017-07-16] MEDS: inSUlin (REGULAR) HUMAN 1 UNIT/0.01 ML (CHARGE PER UNIT) SC SCH ×4 (05:41→22:16)
[2017-07-16] MEDS: CATHETER FLUSH 10 ML SYR IV SCH ×3 (05:53→22:17)
[2017-07-16] MEDS: PIPERACILLIN SODIUM/TAZOBACTAM 4.5 GM in NS (IVPB) 100 ML IV SCH (05:53)
[2017-07-16 06:49] LABS: MEAN PLATELET VOLUME 11.7 FL (7.4-10.4); RED BLOOD COUNT 3.92 10^6/uL (4.35-5.85); RED CELL DISTRIBUTION WIDTH 15.9 % (10.0-14.5); WHITE BLOOD COUNT 13.6 10^3/uL (4.3-11.0)
[2017-07-16 07:08] LABS: ALANINE AMINOTRANSFERASE 44 U/L (0-55); ALBUMIN 3.5 GM/DL (3.2-4.5); ANION GAP 10 MMOL/L (5-14); ASPARTATE AMINO TRANSFERASE 31 U/L (5-34); BILIRUBIN,TOTAL 1.2 MG/DL (0.1-1.0); BLOOD UREA NITROGEN 14 MG/DL (7-18); BUN/CREATININE RATIO 17; CALCIUM 8.6 MG/DL (8.5-10.1); CARBON DIOXIDE 28 MMOL/L (21-32); CHLORIDE 100 MMOL/L (98-107); CREATININE SERUM 0.82 MG/DL (0.60-1.30); GFR ESTIMATED > 60; GLUCOSE 175 MG/DL (70-105); MAGNESIUM 2.1 MG/DL (1.8-2.4); PHOSPHORUS 2.8 MG/DL (2.3-4.7); POTASSIUM 4.6 MMOL/L (3.6-5.0); SODIUM 138 MMOL/L (135-145); TOTAL PROTEIN 6.4 GM/DL (6.4-8.2)
--- NOTE | 2017-07-16 07:47 | Diagnostic Imaging Report ---
Indication: Shortness of air. Comparison: 07/15/17. Findings: Unchanged marked cardiomegaly. Central vascular indistinctness and redistribution is similar. Small bilateral layering pleural effusions are likely present. No pneumothorax. Impression: 1. Stable findings suggestive of congestive heart failure with marked cardiomegaly, central vascular indistinctness and probable pulmonary edema. Dictated by: Dictated on workstation # [id number]
[2017-07-16] MEDS: SUCRALFATE 1 GM (CARAFATE) TAB PO SCH ×3 (07:54→20:55)
[2017-07-16] MEDS: meTOprolol SUCCINATE 100 MG (TOPROL XL) TAB PO SCH (07:54)
[2017-07-16] MEDS: lisINopril 10 MG (PRINIVIL) TAB PO SCH (07:54)
[2017-07-16] MEDS: PANTOPRAZOLE 40 MG/10 ML (PROTONIX) VIAL IV SCH ×2 (07:55→20:55)
--- NOTE | 2017-07-16 14:13 | Progress Note-Cardiology ---
Cardiology SOAP Progress Note Subjective: No shortness of breath at rest. Has not tried activity much. Denies palp or syncope or cp Objective: I&O/Vital Signs Vital Sign - Last 12Hours 07/16/17 07/16/17 07/16/17 07/16/17 03:00 04:00 04:00 04:00 Temp 97.9 Pulse 74 73 Resp 17 23 B/P (MAP) 145/75 152/85 Pulse Ox 99 99 96 O2 Delivery High Flow N/C High Flow N/C High Flow N/C High Flow N/C O2 Flow Rate 5.00 3.00 3.00 3.00 07/16/17 07/16/17 07/16/17 07/16/17 05:00 06:00 07:00 07:00 Pulse 75 74 74 75 Resp 14 37 10 B/P (MAP) 152/83 150/81 153/90 Pulse Ox 99 99 98 O2 Delivery High Flow N/C High Flow N/C O2 Flow Rate 3.00 3.00 3.00 07/16/17 07/16/17 07/16/17 07/16/17 08:00 08:00 08:47 09:00 Pulse 122 84 Resp 23 18 B/P (MAP) 98/64 Pulse Ox 96 95 97 O2 Delivery High Flow N/C High Flow N/C O2 Flow Rate 3.00 3.00 3.00 07/16/17 07/16/17 07/16/17 07/16/17 10:00 11:00 12:00 12:00 Pulse 75 72 74 Resp 21 21 33 B/P (MAP) 137/96 145/91 120/64 Pulse Ox 96 O2 Delivery High Flow N/C O2 Flow Rate 3.00 3.00 3.00 Weight (Pounds): 341 Weight (Ounces): 6.0 Weight (Calculated Kilograms): 154.630146 Constitutional: well-developed, well-nourished, other (obese) Respiratory: No accessory muscle use, other (fair air entry; some basal fine and coarse crackles) Cardiovascular: irregularly irregular, S1 and S2, systolic murmur (faint YOU at cardiac base) Gastrointestional: No tender, soft, No guarding, No rebound, audible bowel sounds Extremities: No clubbing, No cyanosis, significant edema (1-2 edema of both legs) Neurologic/Psychiatric: oriented x 3, grossly intact, power is 5/5 both on sides Skin: No rash on exposed areas, No ulcerations on exposed areas Results/Procedures: Labs Laboratory Tests 07/15/17 17:31: Glucometer 130H 07/15/17 21:14: Glucometer 378H 07/16/17 06:40: White Blood Count 13.6H, Red Blood Count 3.92L, Hemoglobin 12.3L, Hematocrit 40 , Mean Corpuscular Volume 103H, Mean Corpuscular Hemoglobin 31, Mean Corpuscular Hemoglobin Concent 31L, Red Cell Distribution Width 15.9H, Platelet Count 175, Mean Platelet Volume 11.7H, Sodium Level 138, Potassium Level 4.6, Chloride Level 100, Carbon Dioxide Level 28, Anion Gap 10, Blood Urea Nitrogen 14, Creatinine 0.82, Estimat Glomerular Filtration Rate > 60, BUN/Creatinine Ratio 17, Glucose Level 175H, Calcium Level 8.6, Phosphorus Level 2.8, Magnesium Level 2.1, Total Bilirubin 1.2H, Aspartate Amino Transf (AST/SGOT) 31 , Alanine Aminotransferase (ALT/SGPT) 44, Alkaline Phosphatase 54, Total Protein 6.4, Albumin 3.5 07/16/17 11:27: Glucometer 176H Microbiology 07/14/17 MRSA Screen - Final, Complete MRSA not isolated Laboratory Tests 07/15/17 03:16 07/16/17 06:40 A/P: Assessment: PAF with RVR, first diagnosed on 07/14/17, age of onset unknown - rates improved Dilated cardiomyopathy, etiology undetermined, suspect sleep apnea Echo of 07/15/17: mod to severe dilation of LV, severe dilation of LA, LVEF approx 35% Ac systolic and diastolic CHF Endoscopy for eval of coffee ground emesis of 07/15/17: Grade 3 esophagitis. Multiple, nonbleeding distal gastric erosions and shallow ulcers. Multiple, nonbleeding duodenal erosions Obesity (BMI approx 50) Obesity-hypoventilation syndrome, requiring continuous supplemental oxygen Suspected sleep apnea DM II Hypertension Plan: * Complex management issue * Continue current regimen * Increase activity * Does not appear suitable for anticoag at this time, given recent GI bleed * Because OAC is currently relatively contraindicated, he does not seem suitable for elec cardioversion * Advised efforts at wgt loss * Advised sleep studies * Monitor labs * I had a detailed discussion with him and his family STUART CUELLAR MD FACP FAC CCDS Jul 16, 2017 14:13
--- NOTE | 2017-07-16 14:37 | Progress Note-Hospitalist ---
Subjective HPI/CC On Admission Date Seen by Provider: Jul 16, 2017 Time Seen by Provider: 07:00 CC: SVT/CHF HPI: This is a 36 [address]WM pt of [address] Ritchie who presented to the ER with SVT/CHF. Dr. Zuñiga Review: Pt was on BiPAP last night and he vomited into mask and may have aspirated. Pt is covered on abx though Pt is currently on Cardizem drip Patient Interview: Pt states he is breathing a bit better today. Pt's mother believes he is doing much better Pt denies wearing a machine or O2 at home Pt denies experiencing pain. Pt denies stomach pain currently. Possible stomach ulcer was discussed Physical exam stable. Lungs sound perfect Minimal details due to moderate MR low cognition chronically Scribed by Radha Stephens under the direct supervision of Dr. Paredes. Subjective/Events-last exam She reports feeling better much less short of breath. He denies melena and bowels have not yet moved today. He denies dysphasia and is tolerating solids without reported heartburn today. He also denies odynophagia or chest pain. Objective Exam Vital Signs Vital Sign - Last 12Hours 07/14/17 10:33 Temp 96.1 Pulse 157 Resp 36 B/P (MAP) 201/124 Pulse Ox 91 O2 Delivery Nasal Cannula O2 Flow Rate 4.00 FiO2 89 Capillary Refill : Less Than 3 Seconds General Appearance: No Apparent Distress, Obese Respiratory: Chest Non Tender, Lungs Clear, Normal Breath Sounds, No Accessory Muscle Use, No Respiratory Distress Cardiovascular: No JVD, No Murmur, Irregularly Irregular Gastrointestinal: Normal Bowel Sounds, No Organomegaly, No Pulsatile Mass, Non Tender, Soft Extremity: Other (In plus edema bilaterally in lower extremities only.) Results/Procedures Lab Laboratory Tests 07/16/17 06:40 Assessment/Plan Assessment and Plan Assess & Plan/Chief Complaint 1. Likely acute on chronic diastolic heart failure improving. 2. Atrial flutter with variable block versus atrial fibrillation patient not a can of phrenic quite therapy due to recent GI bleed. 3. Yesterday's EGD revealed erosive esophagitis as well as shallow benign gastric erosions without blood being noted in the upper GI tract. Continue PPI therapy and current Carafate. 4. Probable obesity hypoventilation syndrome sleep study to follow as an outpatient per Dr. Zuñiga. In his to attempt ambulation today consider discharge tomorrow pending Dr. Reynolds's evaluation. BRENDAN ADEN MD Jul 16, 2017 14:37
[2017-07-16] MEDS ORDERED: TROUGH ORDER-PHARMACY XX NR (15:00)
[2017-07-16] MEDS: inSUlin DETERMIR 1 UNIT/0.01 ML (LEVEMIR) CHARGE PER UNIT SQ SCH (22:17)
[2017-07-17 03:25] VITALS: BP 131/77
[2017-07-17] MEDS: inSUlin (REGULAR) HUMAN 1 UNIT/0.01 ML (CHARGE PER UNIT) SC SCH ×3 (06:35→16:09)
[2017-07-17] MEDS: CATHETER FLUSH 10 ML SYR IV SCH ×2 (06:45→15:36)
[2017-07-17 08:00] VITALS: BP 154/74
[2017-07-17] MEDS: PANTOPRAZOLE 40 MG/10 ML (PROTONIX) VIAL IV SCH (09:50)
[2017-07-17] MEDS: SUCRALFATE 1 GM (CARAFATE) TAB PO SCH ×2 (09:50→13:05)
[2017-07-17] MEDS: meTOprolol SUCCINATE 100 MG (TOPROL XL) TAB PO SCH (09:50)
[2017-07-17] MEDS: lisINopril 10 MG (PRINIVIL) TAB PO SCH (09:50)
[2017-07-17] MEDS ORDERED: METO-395 PO (11:18)
[2017-07-17] MEDS ORDERED: LISI10TA2 PO (11:18)
[2017-07-17] MEDS ORDERED: PANT40TA3 PO (11:18)
--- NOTE | 2017-07-17 14:13 | Progress Note-Cardiology ---
Cardiology SOAP Progress Note Subjective: Generally feels better. Denies cp or palp or syncope. Has been able to tolerate moderate activity. Wishes to go home Objective: I&O/Vital Signs Vital Sign - Last 12Hours 07/17/17 07/17/17 07/17/17 07/17/17 03:25 08:00 08:05 08:10 Temp 97.3 97.9 Pulse 77 84 Resp 18 20 B/P (MAP) 131/77 154/74 Pulse Ox 96 96 95 O2 Delivery Nasal Cannula Nasal Cannula High Flow N/C Nasal Cannula O2 Flow Rate 2.00 2.00 2.00 1.00 Weight (Pounds): 336 Weight (Ounces): 6.0 Weight (Calculated Kilograms): 152.719564 Constitutional: well-developed, well-nourished, other (obese) Respiratory: No accessory muscle use, other (fair air entry; some basal fine and coarse crackles) Cardiovascular: irregularly irregular, S1 and S2, systolic murmur (faint YOU at cardiac base) Gastrointestional: No tender, soft, No guarding, No rebound, audible bowel sounds Extremities: No clubbing, No cyanosis, significant edema (1-2 edema of both legs) Neurologic/Psychiatric: oriented x 3, grossly intact, power is 5/5 both on sides Skin: No rash on exposed areas, No ulcerations on exposed areas Results/Procedures: Labs Laboratory Tests 07/16/17 17:11: Glucometer 169H 07/16/17 21:15: Glucometer 238H 07/17/17 05:59: Glucometer 164H 07/17/17 11:55: Glucometer 185H Microbiology 07/14/17 MRSA Screen - Final, Complete MRSA not isolated Laboratory Tests 07/16/17 06:40 A/P: Assessment: PAF with RVR, first diagnosed on 07/14/17, age of onset unknown - rates improved Dilated cardiomyopathy, etiology undetermined, suspect sleep apnea Echo of 07/15/17: mod to severe dilation of LV, severe dilation of LA, LVEF approx 35% Ac systolic and diastolic CHF, currently clinically compensated Endoscopy for eval of coffee ground emesis of 07/15/17: Grade 3 esophagitis. Multiple, nonbleeding distal gastric erosions and shallow ulcers. Multiple, nonbleeding duodenal erosions Obesity (BMI approx 50) Obesity-hypoventilation syndrome, requiring continuous supplemental oxygen Suspected sleep apnea DM II Hypertension Plan: * Complex management issue * Continue current regimen * Will start apixaban in lower dose, given recent heme positive vomitus, but no active bleeding on endoscopy (although gastritis and esophagitis was found) * Advised efforts at wgt loss * Advised sleep studies * Increase bb because tachycardic with walking * Possible d/c today with close outpatient f/u, it able tolerate ambulation well * Consider home oxygen if hypoxemic with walking STUART CUELLAR MD FACP FACC CCDS Jul 17, 2017 14:13
[2017-07-17] MEDS ORDERED: APIXABAN 2.5 MG (ELIQUIS) TABLET PO NR (14:33)
[2017-07-17] MEDS ORDERED: NF-MET200T PO (14:33)
[2017-07-17] MEDS ORDERED: meTOproloL SUCCINATE 50 MG (TOPROL XL) TAB PO NR (14:34)
--- NOTE | 2017-07-17 15:09 | Discharge Summary-Hospitalist ---
Diagnosis/Chief Complaint Date of Admission Jul 14, 2017 at 11:43 Date of Discharge Discharge Date: Jul 17, 2017 Admission Diagnosis Assessment: Atrial fibrillation with rapid ventricular response with volume overload Probable aspiration pneumonitis after vomiting and BiPAP mask Severe super obesity Severe obstructive sleep apnea noncompliant with CPAP Diabetes mellitus Hypertension Discharge Diagnosis 1. Likely acute on chronic diastolic heart failure improving. 2. Atrial fibrillation. 3. Yesterday's EGD revealed erosive esophagitis as well as shallow benign gastric erosions without blood being noted in the upper GI tract small-volume upper GI bleed. Continue PPI therapy and current Carafate. 4. Probable obesity hypoventilation syndrome sleep study to follow as an outpatient per Dr. Zuñiga. In his to attempt ambulation today consider discharge tomorrow pending Dr. Reynolds's evaluation. Discharge Summary Discharge Physical Examination Allergies: Coded Allergies: No Known Drug Allergies (Unverified , 08/27/13) Vitals & I&Os Vital Signs Date Time Temp Pulse Resp B/P (MAP) Pulse Ox O2 Delivery O2 Flow Rate FiO2 07/17/17 14:57 95 2.00 07/17/17 08:10 Nasal Cannula 07/17/17 08:00 97.9 84 20 154/74 07/15/17 00:00 60 Hospital Course Pt. was admitted to the intensive care unit and underwent echocardiography. He had ejection fraction of 35 percent with global hypokinesis and severe left atrial chamber dilatation. This was felt to be due to obesity hypoventilation syndrome. Both Dr. REYNOLDS and myself discussed the importance of further investigation for sleep apnea and the importance of weight loss. After taking dietary history he was advised to switch from sweet tea to regular tea as he is getting at least 500 hubert per day in this form of liquid. Discussed association with sleep apnea. Initially anticoagulant therapy was held due to small-volume upper GI bleed. He underwent EGD evaluation which revealed grade 3 erosive esophagitis in addition to gastritis with no evidence for blood in the upper GI tract. He is being discharged on a lower dose L Reaves per Dr. REYNOLDS 2.5 twice a day for now. He will follow-up with Dr. REYNOLDS was advised to follow- up with Dr. Zuñiga for sleep evaluation in addition to his primary care provider Dr. Chavez. JANICE inhibitor or beta evie therapy and spironolactone were initiated. He will continue hydrochlorothiazide at home and discontinue nifedipine. Labs (last 24 hrs) Laboratory Tests 07/16/17 17:11: Glucometer 169H 07/16/17 21:15: Glucometer 238H 07/17/17 05:59: Glucometer 164H 07/17/17 11:55: Glucometer 185H Microbiology 07/14/17 MRSA Screen - Final, Complete MRSA not isolated Pending Labs Laboratory Tests 07/17/17 11:55: Glucometer 185 Discharge Home Medications: Active Scripts Active Toprol Xl (Metoprolol Succinate) 200 Mg Tab 200 Mg PO DAILY Pantoprazole Sodium 40 Mg Tablet.dr 40 Mg PO DAILY 30 Days Lisinopril 10 Mg Tablet 10 Mg PO DAILY 60 Days Reported Metformin HCl 500 Mg Tablet 500 Mg PO TIDWM Hydrochlorothiazide 25 Mg Tablet 25 Mg PO DAILY Spironolactone 25 Mg Tablet 25 Mg PO DAILY Lantus Solostar (Insulin Glargine,Hum.rec.anlog) 100 Unit/1 Ml Insuln.pen 30 Units SQ HS Instructions to patient/family Please see electronic discharge instructions given to patient. Clinical Quality Measures DVT/VTE Risk/Contraindication: Risk Factor Score Per Nursin RFS Level Per Nursing on Admit: 2=Moderate Copy Copies To 1: TATA CHAVEZ MD Copies To 2: JESSIE ZUÑIGA MARK D MD Jul 17, 2017 15:09
[2017-07-17 16:13] VITALS: BP 134/64
[2017-07-17] MEDS ORDERED: APIX2.5T PO (16:39)
[2017-07-17] MEDS ORDERED: APIXABAN 2.5 MG (ELIQUIS) TABLET PO SCH (21:00)
[2017-07-18] MEDS ORDERED: meTOprolol SUCCINATE 100 MG (TOPROL XL) TAB PO SCH (09:00)
[2017-08-09] MEDS ORDERED: METO200T4 PO (18:39)
[2017-08-25] MEDS ORDERED: SOTA80TA PO (09:26)
--- NOTE | 2017-09-15 16:07 | Physician Query Clarification ---
PQ-Conflicting Diagnosis Admission/Discharge Admission Date: Jul 14, 2017 at 11:43 Discharge Date: Jul 17, 2017 at 17:30 The medical record reflects the following clinical scenario: History/Risk Factors: CHF, Diabetes, HTN, Severe super obesity, IWONA Clinical Findings: rapid heart rate, SOB, T96.1, P157, R36, BP 201/124, Lactic 1.76, WBC 12.1>13.9 Treatment: Cardizem drip, O2, IV vanco and Piperacillin Question: Do you agree with the impression of the sepsis per Dr. Zuñiga. Please document a response below. PHYSICIAN RESPONSE Do you agree w/Consulting Dx?: Yes In responding to this query, please exercise your independent professional judgment. The purpose of this communication is to more accurately reflect the complexity of your patients condition. The fact that a question is asked does not imply that any particular answer is desired or expected. Thank you for your timely response to this clarification. Requestors name: Ana THIS PHYSICIAN QUERY FORM IS A PERMANENT PART OF THE MEDICAL RECORD ANA PAULINO Sep 15, 2017 16:07 BRENDAN ADEN MD Sep 16, 2017 12:16
== END 2017-07-17 17:30 | disposition home or self-care (01) | DRG 308 ==
LOC: EDUNIT# 10:33 → ER 10:35 → ICU 11:43 → 4TH 07-16 15:15
PROVIDERS: ADMIT Internal Medicine; ATTEND Internal Medicine
PROC: 0DJ08ZZ Inspection of Upper Intestinal Tract, Via Natural or Artificial Opening Endoscopic (ICD-10-PCS; principal; 2017-07-15 15:30)
DX: I48.0 Paroxysmal atrial fibrillation (principal); I50.41 Acute combined systolic (congestive) and diastolic (congestive) heart failure; A41.9 Sepsis, unspecified organism; J69.0 Pneumonitis due to inhalation of food and vomit; E66.2 Morbid (severe) obesity with alveolar hypoventilation; J96.90 Respiratory failure, unspecified, unspecified whether with hypoxia or hypercapnia; Z68.43 Body mass index [BMI] 50.0-59.9, adult; K92.2 Gastrointestinal hemorrhage, unspecified; E11.9 Type 2 diabetes mellitus without complications; I42.0 Dilated cardiomyopathy; I11.0 Hypertensive heart disease with heart failure; K20.9 Esophagitis, unspecified; K25.9 Gastric ulcer, unspecified as acute or chronic, without hemorrhage or perforation; K26.9 Duodenal ulcer, unspecified as acute or chronic, without hemorrhage or perforation; F71 Moderate intellectual disabilities; Z79.4 Long term (current) use of insulin; Z91.19 Patient's noncompliance with other medical treatment and regimen
CPT/HCPCS: 36415; 71010; 80053; 80061; 80202; 81000; 82271; 82805; 82962; 83605; 83735; 83874; 83880; 84100; 84443; 84484; 85007; 85025; 85027; 85610; 85730; 87081; 93005; 93041; 93306; 94660; 94760; 94761; 96361; 96365; 96375

== ENCOUNTER 2017-08-08 23:02 | Inpatient (IN) | payer BC ==
[~2017-08-08] VITALS: Ht 175.3 cm; Wt 140.3 kg
[~2017-08-08 23:02] MED LIST changes: +APIX2.5T PO; +ASPI-983 PO; +HYDR25TA4 PO; +INSU100I10 SQ; +LISI10TA2 PO; +METF500T4 PO; +METO-274 PO; +NF-MET200T PO; +NIFE-7 PO; +PANT40TA3 PO; +SPIR25TA3 PO
[2017-08-08] MEDS ORDERED: ASPIRIN 81 MG CHEW (CHILDREN'S ASA) PO ONE (23:30)
[2017-08-08] MEDS ORDERED: RT-ALBUTEROL/IPRATROPIUM 3 ML (DUONEB) VIAL INH ONE (23:30)
[2017-08-08] MEDS ORDERED: DIGO250T PO (23:32)
[2017-08-08] MEDS ORDERED: CRV25T PO (23:32)
[2017-08-08] MEDS ORDERED: HYDR50TA76 PO (23:32)
[2017-08-08] MEDS ORDERED: LOSA100T28 (23:32)
[2017-08-08] MEDS ORDERED: APIX5TAB PO (23:32)
[2017-08-08 23:38] LABS: BASOPHILS # (AUTO) 0.1 10^3/uL (0.0-0.1); BASOPHILS % (AUTO) 0 % (0-10); EOSINOPHILS # (AUTO) 0.2 10^3/uL (0.0-0.3); EOSINOPHILS % (AUTO) 1 % (0-10); LYMPHOCYTES # (AUTO) 1.3 X 10^3 (1.0-4.0); LYMPHOCYTES % (AUTO) 9 % (12-44); MEAN CORPUSCULAR HEMOGLOBIN 30 PG (25-34); MEAN CORPUSCULAR HGB CONC 30 G/DL (32-36); MEAN CORPUSCULAR VOLUME 100 FL (80-99); MEAN PLATELET VOLUME 11.4 FL (7.4-10.4); MONOCYTES # (AUTO) 1.3 X 10^3 (0.0-1.0); MONOCYTES % (AUTO) 9 % (0-12); NEUTROPHILS # (AUTO) 11.7 X 10^3 (1.8-7.8); NEUTROPHILS % (AUTO) 81 % (42-75); PLATELET COUNT 261 10^3/uL (130-400); RED BLOOD COUNT 4.45 10^6/uL (4.35-5.85); RED CELL DISTRIBUTION WIDTH 15.1 % (10.0-14.5); WHITE BLOOD COUNT 14.5 10^3/uL (4.3-11.0)
[2017-08-08 23:42] LABS: INR 1.6 (0.8-1.4); PROTHROMBIN TIME PATIENT 18.6 SEC (12.2-14.7)
[2017-08-08 23:50] LABS: ALANINE AMINOTRANSFERASE 31 U/L (0-55); ANION GAP 12 MMOL/L (5-14); ASPARTATE AMINO TRANSFERASE 26 U/L (5-34); BILIRUBIN,TOTAL 1.5 MG/DL (0.1-1.0); BLOOD UREA NITROGEN 14 MG/DL (7-18); BUN/CREATININE RATIO 12; CALCIUM 10.1 MG/DL (8.5-10.1); CARBON DIOXIDE 30 MMOL/L (21-32); CHLORIDE 100 MMOL/L (98-107); CREATININE SERUM 1.13 MG/DL (0.60-1.30); GFR ESTIMATED > 60; GLUCOSE 214 MG/DL (70-105); MAGNESIUM 1.9 MG/DL (1.8-2.4); POTASSIUM 4.8 MMOL/L (3.6-5.0); SODIUM 142 MMOL/L (135-145); TOTAL PROTEIN 7.8 GM/DL (6.4-8.2)
[2017-08-08 23:51] LABS: ALBUMIN 4.1 GM/DL (3.2-4.5)
--- NOTE | 2017-08-08 23:55 | ED Respiratory ---
General Chief Complaint: Respiratory Problems Stated Complaint: SOB Nursing Triage Note: increased soa x2 hrs Source: patient, family Exam Limitations: no limitations History of Present Illness Time seen by provider: 23:00 Initial Comments Patient presents to ER by private conveyance with a chief complaint of being short of breath as well as having an infection in his groin region that he says no one is paying attention to. He feels that he is very sick and has asked to be admitted to the hospital and put on vancomycin. He says about 2 weeks ago he was in the hospital with a new onset atrial flutter that is probably secondary to his congestive heart failure. He is not sure what his ejection fraction is. He sees Dr. Groves, cardiology. After he got out of hospital they removed a lot of fluids and put him on spironolactone. However he says in the last 2 weeks he does not think he is gaining any weight or fluids but is not wetting himself. His mother states that she feels he is looking a little more swollen around the middle and ankles to her in the past 2 weeks. He says his acute bout of shortness of breath just started today. He denies any chest pain, nausea, cough, numbness in the jawline, shoulders, neck, arm. He has not had an RI. He reports being can persistent with taking his medications and uses Toprol, pantoprazole, lisinopril, Lantus, metformin, and Spironolactone. He says began to have some redness and swelling and discomfort under his pannus and above his penis approximate 4 years ago and this was treated inpatient with vancomycin by his doctor. He says in the past 1-2 weeks it has began to flare up again. He feels that the soft tissue above his penis which she refers to as his bladder he has swelling and overlaying his penis and making it very hard for him to urinate without getting an all over himself. Allergies and Home Medications Allergies Coded Allergies: No Known Drug Allergies (Unverified , 08/27/13) Home Medications Apixaban 2.5 Mg Tablet, 2.5 MG PO BID, #60 Ref 5 Prescribed by: STUART CUELLAR on 07/17/17 4396 Apixaban 5 Mg Tablet, (Reported) Carvedilol 25 Mg Tab, (Reported) Digoxin 250 Mcg Tablet, (Reported) Hydrochlorothiazide 25 Mg Tablet, 25 MG PO DAILY, (Reported) Hydroxyzine HCl 50 Mg Tablet, (Reported) Insulin Glargine,Hum.rec.anlog 100 Unit/1 Ml Insuln.pen, 30 UNITS SQ HS, ( Reported) Lisinopril 10 Mg Tablet, 10 MG PO DAILY for 60 Days, #30 Prescribed by: BRENDAN ADEN on 07/17/17 1118 Losartan Potassium 100 Mg Tablet, (Reported) Metformin HCl 500 Mg Tablet, 500 MG PO TIDWM, (Reported) Metoprolol Succinate 200 Mg Tab, 200 MG PO DAILY, #30 Ref 5 Prescribed by: STUART CUELLAR on 07/17/17 1433 Pantoprazole Sodium 40 Mg Tablet.dr, 40 MG PO DAILY for 30 Days, #30 Prescribed by: BRENDAN ADEN on 07/17/17 1118 Spironolactone 25 Mg Tablet, 25 MG PO DAILY, (Reported) Constitutional: No chills, No diaphoresis, No fever, No malaise EENTM: No ear pain, No double vision Respiratory: No cough, No hemoptysis, orthopnea, short of breath, No stridor, No wheezing Cardiovascular: No chest pain, edema, No Hx of Intervention, No palpitations, No syncope Gastrointestinal: No abdominal pain, No constipation, No diarrhea, No nausea, No vomiting Genitourinary: No discharge, No dysuria Musculoskeletal: No back pain, No joint pain Skin: rash, other (discomfort in the pannus and groin area) Psychiatric/Neurological: Denies Headache, Denies Numbness, Denies Paresthesia Past Ssrvzyy-Lbeomd-Barptc Hx Patient Social History Alcohol Use: Denies Use Recreational Drug Use: No Smoking Status: Never a Smoker 2nd Hand Smoke Exposure: No Recent Foreign Travel: No Contact w/Someone Who Travel: No Recent Infectious Disease Expo: No Recent Hopitalizations: No Immunizations Up To Date Tetanus Booster (TDap): Unknown PED Vaccines UTD: Yes Date of Influenza Vaccine: Aug 28, 2013 Seasonal Allergies Seasonal Allergies: No Surgeries History of Surgeries: No Respiratory History of Respiratory Disorde: Yes Respiratory Disorders: Sleep Apnea Cardiovascular History of Cardiac Disorders: Yes (CHF) Cardiac Disorders: Atrial Fibrillation, High Cholesterol, Hypertension Neurological History of Neurological Disord: Yes Neurological Disorders: Developmental Disorder Genitourinary History of Genitourinary Disor: No Gastrointestinal History of Gastrointestinal Di: No Musculoskeletal History of Musculoskeletal Dis: No Endocrine History of Endocrine Disorders: Yes Endocrine Disorders: Diabetes, Insulin dep HEENT History of HEENT Disorders: No Loss of Vision: Denies Hearing Impairment: Denies Cancer History of Cancer: No Psychosocial History of Psychiatric Problem: No Integumentary History of Skin or Integumenta: No Blood Transfusions History of Blood Disorders: No Adverse Reaction to a Blood Tr: No Family Medical History Significant Family History: Heart Disease, CVA, Hypertension Physical Exam Vital Signs Vital Sign - Last 12Hours Capillary Refill : Less Than 3 Seconds General Appearance: WD/WN, moderate distress, obese Eyes: Bilateral Eye Normal Inspection, Bilateral Eye PERRL, Bilateral Eye EOMI HEENT: PERRL/EOMI, normal ENT inspection, pharynx normal (wet) Neck: non-tender, normal inspection Respiratory: chest non-tender, lungs clear, respiratory distress, decreased breath sounds, accessory muscle use, No wheezing Cardiovascular: normal peripheral pulses, irregularly irregular, other (edema and pannus and both calves.) Gastrointestinal: normal bowel sounds, non tender, soft Extremities: non-tender, no calf tenderness, normal capillary refill, pedal edema (2+ pitting edema bilateral lower extremities) Neurologic/Psychiatric: alert, normal mood/affect, oriented x 3 Skin: other (erythematous under the pannus and groin and mons pubis as well as between the thighs and gluteal cleft with stage I pressure ulcer over her sacrum. There is a small ulceration on the skin above the penis. Genital verruca Noted on the scrotum.) Progress/Results/Core Measures Results/Orders Lab Results Laboratory Tests Test 08/08/17 23:20 Range/Units White Blood Count 14.5 H 4.3-11.0 10^3/uL Red Blood Count 4.45 4.35-5.85 10^6/uL Hemoglobin 13.2 L 13.3-17.7 G/DL Hematocrit 44 40-54 % Mean Corpuscular Volume 100 H 80-99 FL Mean Corpuscular Hemoglobin 30 25-34 PG Mean Corpuscular Hemoglobin Concent 30 L 32-36 G/DL Red Cell Distribution Width 15.1 H 10.0-14.5 % Platelet Count 261 130-400 10^3/uL Mean Platelet Volume 11.4 H 7.4-10.4 FL Neutrophils (%) (Auto) 81 H 42-75 % Lymphocytes (%) (Auto) 9 L 12-44 % Monocytes (%) (Auto) 9 0-12 % Eosinophils (%) (Auto) 1 0-10 % Basophils (%) (Auto) 0 0-10 % Neutrophils # (Auto) 11.7 H 1.8-7.8 X 10^3 Lymphocytes # (Auto) 1.3 1.0-4.0 X 10^3 Monocytes # (Auto) 1.3 H 0.0-1.0 X 10^3 Eosinophils # (Auto) 0.2 0.0-0.3 10^3/uL Basophils # (Auto) 0.1 0.0-0.1 10^3/uL Prothrombin Time 18.6 H 12.2-14.7 SEC INR Comment 1.6 H 0.8-1.4 Activated Partial Thromboplast Time 35 24-35 SEC D-Dimer 1.64 H 0.00-0.49 UG/ML Sodium Level 142 135-145 MMOL/L Potassium Level 4.8 3.6-5.0 MMOL/L Chloride Level 100 98-107 MMOL/L Carbon Dioxide Level 30 21-32 MMOL/L Anion Gap 12 5-14 MMOL/L Blood Urea Nitrogen 14 7-18 MG/DL Creatinine 1.13 0.60-1.30 MG/DL Estimat Glomerular Filtration Rate > 60 BUN/Creatinine Ratio 12 Glucose Level 214 H 70-105 MG/DL Calcium Level 10.1 8.5-10.1 MG/DL Magnesium Level 1.9 1.8-2.4 MG/DL Total Bilirubin 1.5 H 0.1-1.0 MG/DL Aspartate Amino Transf (AST/SGOT) 26 5-34 U/L Alanine Aminotransferase (ALT/SGPT) 31 0-55 U/L Alkaline Phosphatase 55 40-136 U/L Myoglobin 32.1 10.0-92.0 NG/ML Troponin I < 0.30 <0.30 NG/ML B-Type Natriuretic Peptide 1677.3 H <100.0 PG/ML Total Protein 7.8 6.4-8.2 GM/DL Albumin 4.1 3.2-4.5 GM/DL My Orders Orders - IRVIN MACHADO Cbc With Automated Diff (08/08/17:) Magnesium (08/08/17:29) Ekg Tracing (08/08/17:) Cardiac Profile 1 (08/08/17:) Comprehensive Metabolic Panel (08/08/17:) Myoglobin Serum (08/08/17:) Protime With Inr (08/08/17:) Partial Thromboplastin Time (08/08/17:) O2 (08/08/17:) Monitor-Rhythm Ecg Trace Only (08/08/17) Lipid Panel (08/09/17 06:00) Aspirin Chewable Tablet (Baby Aspirin Ch (08/08/17:30) Saline Lock/Iv-Start (08/08/17:) BNP (08/08/17:) Fibrin Degradation Products (08/08/17:) Albuterol/Ipra Inhalation Soln (Duoneb I (08/08/17:30) Chest Pa/Lat (2 View) (08/08/17:29) Drug Screen Stat (Urine) (08/08/17:29) Ua Culture If Indicated (08/08/17:) Svn Sm Volume Nebulizer Rt-Rfs (08/08/17:) Furosemide Injection (Lasix Injection) (08/09/17 00:45) Lactic Acid Analyzer (08/09/17 00:39) Blood Culture (08/09/17 00:39) Sputum Culture (08/09/17 00:39) Saline Lock/Iv-Start (08/09/17 00:39) Vital Signs Adult Sepsis Patie Q1HR (08/09/17 00:39) Remove Rings In Anticipation O (08/09/17 00:39) Vancomycin 1 Gm Iv (1x Dose) (08/09/17 00:45) Medications Given in ED Current Medications Medications Dose Ordered Sig/Beatriz Route Start Time Stop Time Status Last Admin Dose Admin Albuterol/ Ipratropium 3 ml ONCE ONCE INH 08/08/17 23:30 08/08/17 23:32 DC 08/08/17 23:44 3 ML Aspirin 324 mg ONCE ONCE PO 08/08/17 23:30 08/08/17 23:32 DC 08/08/17 23:45 324 MG Vital Signs/I&O Vital Sign - Last 12Hours 08/08/17 08/08/17 23:20 23:20 Temp 97.7 Pulse 114 Resp 23 B/P (MAP) 163/92 Pulse Ox 95 95 O2 Delivery Nasal Cannula Nasal Cannula O2 Flow Rate 5.00 5.00 Blood Pressure Mean: 115 Progress Note : Time: 00:37 Progress Note Patient has a 2 fibrillation and heart failure with reduced ejection fraction dating back to an echocardiogram in 2013 when his ejection fraction was 20%. Most recently in July 15, 2017 his EF was 35%. His BNP after his discharge about a month ago was 300 today to 1600. He appears wet on examination and his x -ray definitely looks like pulmonary congestion. We will go ahead and give him some Lasix. Because of his white count and possible cellulitis of the pannus and groin we'll go ahead and start him on antibiotics and obtain blood cultures. Kidney function seems to be okay. D-dimer is not very helpful as he has pretty bad cellulitis in his groin which may be accounting for his elevation. ECG Initial ECG Impression Date: Aug 08, 2017 Initial ECG Impression Time: 23:09 Initial ECG Rate: 101 Initial ECG Rhythm: A Fib/Flutter Initial ECG Intervals: QT (QTC 472 ms) Initial ECG Impression: Atrial Fibrillation Initial ECG Comparisson: No Previous ECG Available Comment No T-wave abnormalities noted. Atrial fibrillation without rapid ventricular response. Diagnostic Imaging Diagonstic Imaging: Xray Plain Films/CT/US/NM/MRI: chest Comments Ulnar congestion and possible pleural effusion right side. Reviewed: Reviewed by Me Departure Communication (Admissions) Time/Spoke to Admitting Phy: 00:[address] Grant and discussed the case, findings imaging and plan to give 40 mg Lasix IV. He recommends another 40 mg Lasix IV and 6 hours. He'll see the patient and consult cardiology in the morning. Impression Impression: Primary Impression: Reduced ejection fraction concurrent with and due to acute on chronic heart failure Additional Impressions: Cellulitis Qualified Codes: L03.818 - Cellulitis of other sites Sepsis Qualified Codes: A41.9 - Sepsis, unspecified organism Pressure ulcer, stage I Qualified Codes: L89.151 - Pressure ulcer of sacral region, stage 1 Disposition: ADMITTED INPATIENT Condition: Stable Admissions Decision to Admit Reason: Admit from ER (General) Decision to Admit/Date: Aug 09, 2017 Time/Decision to Admit Time: 01:04 Departure-Patient Inst. Referrals: TATA CHAVEZ MD (PCP/Family) Primary Care Physician Copy Copies To 1: TATA CHAVEZ MD Copies To 2: STUART CUELLAR MD FACP [facility] IRVIN MACHADO Aug 08, 2017 23:55
[2017-08-08 23:57] LABS: MYOGLOBIN SERUM 32.1 NG/ML (10.0-92.0)
[2017-08-09] VITALS (20 sets, daily range): BP systolic 150–185; BP diastolic 66–119
[2017-08-09] MEDS ORDERED: VANCOMYCIN INJECTION 1,000 MG in NS (IVPB) 250 ML IV ONE (00:45)
[2017-08-09] MEDS ORDERED: FUROSEMIDE 40 MG/4 ML INJ (LASIX) IVP ONE (00:45)
[2017-08-09] MEDS ORDERED: ONDANSETRON 4 MG/2 ML (SDV) Z0FRAN IV PRN (02:30)
[2017-08-09] MEDS ORDERED: ACETAMINOPHEN 500 MG TAB (TYLENOL) PO PRN (02:30)
[2017-08-09] MEDS ORDERED: RT-ALBUTEROL/IPRATROPIUM 3 ML (DUONEB) VIAL INH PRN ×2 (04:00→12:45)
[2017-08-09 05:03] LABS: BASOPHILS % (AUTO) 0 % (0-10); EOSINOPHILS # (AUTO) 0.1 10^3/uL (0.0-0.3); EOSINOPHILS % (AUTO) 1 % (0-10); LYMPHOCYTES # (AUTO) 0.8 X 10^3 (1.0-4.0); LYMPHOCYTES % (AUTO) 7 % (12-44); MEAN CORPUSCULAR HEMOGLOBIN 30 PG (25-34); MEAN CORPUSCULAR HGB CONC 30 G/DL (32-36); MEAN CORPUSCULAR VOLUME 100 FL (80-99); MEAN PLATELET VOLUME 11.6 FL (7.4-10.4); MONOCYTES # (AUTO) 0.9 X 10^3 (0.0-1.0); MONOCYTES % (AUTO) 8 % (0-12); NEUTROPHILS # (AUTO) 9.5 X 10^3 (1.8-7.8); NEUTROPHILS % (AUTO) 84 % (42-75); PLATELET COUNT 209 10^3/uL (130-400); RED BLOOD COUNT 4.26 10^6/uL (4.35-5.85); RED CELL DISTRIBUTION WIDTH 15.1 % (10.0-14.5); WHITE BLOOD COUNT 11.3 10^3/uL (4.3-11.0)
[2017-08-09 05:23] LABS: ANION GAP 12 MMOL/L (5-14); BLOOD UREA NITROGEN 14 MG/DL (7-18); BUN/CREATININE RATIO 14; CARBON DIOXIDE 32 MMOL/L (21-32); CHLORIDE 100 MMOL/L (98-107); CHOLESTEROL 109 MG/DL (< 200); CREATININE SERUM 1.03 MG/DL (0.60-1.30); DIRECT LDL 55 MG/DL (1-129); GFR ESTIMATED > 60; GLUCOSE 164 MG/DL (70-105); POTASSIUM 4.7 MMOL/L (3.6-5.0); SODIUM 144 MMOL/L (135-145); TRIGLYCERIDES 121 MG/DL (<150); VLDL CHOLESTEROL 24 MG/DL (5-40)
[2017-08-09] MEDS ORDERED: FUROSEMIDE 40 MG/4 ML INJ (LASIX) IV ONE (06:00)
--- NOTE | 2017-08-09 06:09 | Diagnostic Imaging Report ---
INDICATION: Shortness of air. COMPARISON: 07/16/2017 FINDINGS: Frontal and lateral radiographic views of the chest were obtained. There has been interval development of mild effusion on the right. There is some associated alveolar airspace disease within the right mid and lower lung field. Cardiac silhouette remains moderately enlarged. Pulmonary vasculature is prominent as well. There are also diffuse interstitial opacities with a few scattered alveolar opacities as well. There is no large effusion on the left. There is no pneumothorax on either side. Bony structures show no gross acute abnormalities. IMPRESSION: 1. Cardiomegaly with pulmonary vascular congestion. 2. Mixed interstitial and alveolar opacities progressed from prior exam and concerning for mixed pulmonary edema or pneumonia. 3. Interval development of right-sided pleural effusion with associated atelectasis and/or infiltrate. Dictated by: Dictated on workstation # [id number]
[2017-08-09] MEDS: inSUlin (REGULAR) HUMAN 1 UNIT/0.01 ML (CHARGE PER UNIT) SC SCH ×4 (06:17→20:54)
[2017-08-09] MEDS: RT-ALBUTEROL/IPRATROPIUM 3 ML (DUONEB) VIAL INH SCH ×2 (06:55→10:11)
--- NOTE | 2017-08-09 08:09 | History & Physical-Hospitalist ---
HPI History of Present Illness: HPI/Chief Complaint Pt is a 36yoCM with a PMH of developmental delay, CHF, a fib, and IDDMII who presented to the ER last night with complaints of SOB. He is a poor historian due to developmental delay but was able to tell me that he started to feel SOB yesterday worse than he normally is. He reports compliance with his medications and denies any changes in his diet. He denies a cough or fever. He wears 2lpm of oxygen at home and is unable to tell me if he had needed morning. He has noticed some worsening swelling for the past few weeks. Per review of ER records he was also concerned about a rash on his groin but he denied any complaints during my interview. Source: patient, RN/MD, old records Exam Limitations: clinical condition Date Seen 08/09/17 Time Seen by Provider: 07:55 Attending Physician Brant Grant MD PCP Juan Ritchie MD Referring Physician Date of Admission Aug 09, 2017 at 01:00 Home Medications & Allergies Home Medications Reviewed patient Home Medication Reconciliation Form Allergies Allergies Coded Allergies No Known Drug Allergies (Cpfnzxdpdw12/28/13) Past Ktuthvp-Ibsgyx-Hckodt Hx Patient Social History Alcohol Use: Denies Use Number of Drinks Today: AA Recreational Drug Use: No Smoking Status: Never a Smoker 2nd Hand Smoke Exposure: No Physical Abuse Screen: No Sexual Abuse: No Recent Foreign Travel: No Contact w/other who traveled: No Recent Hopitalizations: No Recent Infectious Disease Expo: No Immunizations Up To Date Tetanus Booster (TDap): Unknown Pediatric: Yes Date of Influenza Vaccine: Aug 28, 2013 Seasonal Allergies Seasonal Allergies: No Surgeries No Respiratory No Sleep Apnea Currently Using CPAP: No Currently Using BIPAP: No Cardiovascular Yes (CHF) Atrial Fibrillation, High Cholesterol, Hypertension Neurological Yes Developmental Disorder Genitourinary No Gastrointestinal Yes Gastroesophageal Reflux, Chronic Diarrhea, Ulcer Musculoskeletal No Endocrine History of Endocrine Disorders: Yes Endocrine Disorders: Diabetes, Insulin dep Are Your Blood Sugars Over 250: No HEENT History of HEENT Disorders: No Loss of Vision: Denies Hearing Impairment: Denies Cancer No Psychosocial History of Psychiatric Problem: No Integumentary History of Skin or Integumenta: No Blood Transfusions History of Blood Disorders: No Adverse Reaction to a Blood Tr: No Family Medical History Significant Family History: Heart Disease, CVA, Hypertension Family Hx: Blood clots 19 FATHER FH: stroke 19 FATHER Respiratory disorder 19 FATHER Review of Systems Constitutional: No chills, No diaphoresis, No fever EENTM: No blurred vision, No double vision Respiratory: No cough, dyspnea on exertion, No orthopnea, short of breath Cardiovascular: No chest pain, No edema, No palpitations Gastrointestinal: No abdominal pain, No constipation, No diarrhea, No melena, No nausea Genitourinary: No dysuria, No frequency Musculoskeletal: no symptoms reported Skin: see HPI Psychiatric/Neurological: No Symptoms Reported Physical Exam Physical Exam Vital Signs Vital Sign - Last 12Hours Capillary Refill : Less Than 3 Seconds General Appearance: No Apparent Distress, WD/WN HEENT: Moist Mucous Membranes Neck: Non Tender, Supple, JVD Respiratory: Lungs Clear, Normal Breath Sounds, No Accessory Muscle Use Cardiovascular: No Edema, No Murmur, Irregularly Irregular Gastrointestinal: Normal Bowel Sounds, Non Tender, Soft Rectal: Deferred Extremity: Normal Capillary Refill, Non Tender, Swelling (2-3+ pitting edema to calves) Neurologic/Psychiatric: Oriented x3, Other (developmental delay) Skin: Other (erythema over mons pubis) Results Results/Procedures Lab Laboratory Tests 08/08/17 23:20 08/09/17 04:00 Assessment/Plan Admission Diagnosis Acutely decompensated systolic heart failure Diagnosis/Problems Diagnosis/Problems (1) Acute decompensated heart failure Assessment & Plan: Echo of 07/15/17: mod to severe dilation of LV, severe dilation of LA, LVEF approx 35% Continue on IV lasix Cardiology Consult, appreciate recs Fluid restriction, Low Na diet strict I/Os Daily weights (2) Atrial fibrillation Assessment & Plan: Continue eliquis, metoprolol Review shows on lower dose of Eliquis due to recent UGI bleed Endoscopy negative (3) Cellulitis Status: Acute Assessment & Plan: On Vanc given history of previous cellulitis responding only to Vanc No signs of sepsis at this time Qualifiers: Qualified Codes: L03.818 - Cellulitis of other sites (4) Insulin dependent diabetes mellitus Assessment & Plan: Continue home insulin SSI A (5) Essential (primary) hypertension Assessment & Plan: BP elevated this AM Will resume home meds (6) Prophylactic measure Assessment & Plan: Eliquis Low Na, Carb controlled diet Saline Lock Clinical Quality Measures DVT/VTE Risk/Contraindication: Risk Factor Score Per Nursin RFS Level Per Nursing on Admit: 4+=Very High MARIA DE JESUS TODD MD Aug 09, 2017 08:09
[2017-08-09] MEDS: DIGOXIN 0.25 MG (LANOXIN) TAB PO SCH (08:14)
[2017-08-09] MEDS: APIXABAN 5 MG (ELIQUIS) TABLET PO SCH ×2 (08:15→20:57)
[2017-08-09] MEDS ORDERED: INFLUENZA TRIvalent 2017-2018 0.5 ML/45 MCG SYR IM ONE (08:15)
[2017-08-09] MEDS: SPIRONOLACTONE 25 MG (ALDACTONE) TAB PO SCH (08:15)
[2017-08-09] MEDS ORDERED: NYSTATIN POWDER 100,000 UNITS 15 GM BTL TOP SCH (09:00)
[2017-08-09] MEDS: VANCOMYCIN 2000 MG/NS 500 ML IVPB IV SCH ×4 (09:00→20:42)
[2017-08-09] MEDS: MICONAZOLE 2% POWDER (DESENEX AF) 90 GM TOP SCH ×4 (09:00→21:49)
[2017-08-09] MEDS ORDERED: lisINopril 20 MG (ZESTRIL) TAB PO NR (10:15)
[2017-08-09] MEDS ORDERED: FUROSEMIDE 40 MG/4 ML INJ (LASIX) IVP NR (10:15)
[2017-08-09] MEDS ORDERED: meTOprolol SUCCINATE 100 MG (TOPROL XL) TAB PO NR (10:15)
[2017-08-09] MEDS ORDERED: SPIRONOLACTONE 25 MG (ALDACTONE) TAB PO ONE (10:15)
--- NOTE | 2017-08-09 10:15 | Consultation-Cardiology ---
HPI-Cardiology Cardiology Consultation: Date of Consultation 08/09/17 Time Seen by Provider: 09:30 Date of Admission 08/09/17 Attending Physician Brant Grant MD Admitting Physician Juan Ritchie MD Consulting Physician STUART CUELLAR MD, MA, FACP, FACC, FSCAI, CCDS HPI: Chief Complaint: Shortness of breath HPI: 36 yo man who suffers from multiple comorbidities that are outlined below who was admitted in the early hours of 08/09/17 with increasing shortness of breath. Had also reported to a rash in the pubic area for several days. Has been admitted with ac CHF and groin cellulitis. Has been treated with iv diuretics. Currently feels better compared to time of admission. Denies cp or palp or syncope. Has chronic waxing and waning leg swelling. Denies fever or chill. Denies focal weakness. Report gen malaise. Denies cough or sputum production Review of Systems-Cardiology Review of Systems Constitutional: As described under HPI Eyes: No vision change Ears/Nose/Throat: No ear discharge, No nasal drainage, No recent hearing loss Respiratory: As described under HPI Cardiovascular: As described under HPI Gastrointestinal: No constipation, No nausea, No vomiting Genitourinary: No dysuria, No hematuria, No urine frequency changes Musculoskeletal: back pain (chronic) Skin: rash (pubic area) Psychiatric/Neurological: No seizure, No focal weakness, No syncope Hematologic: No bleeding abnormalities EME-Bbkstg-Ztxcow Hx Patient Social History Alcohol Use: Denies Use Recreational Drug Use: No Smoking Status: Never a Smoker 2nd Hand Smoke Exposure: No Recent Foreign Travel: No Recent Infectious Disease Expo: No Hospitalization with Isolation: Denies Physical Abuse Screen: No Sexual Abuse: No Immunizations Up To Date Tetanus Booster (TDap): Unknown Date of Influenza Vaccine: Aug 28, 2013 Past Medical History PMH As described under Assessment. Family Medical History Family Medical History: He does not report fam h/o or early CAD or SCD Family History: Blood clots 19 FATHER FH: stroke 19 FATHER Respiratory disorder 19 FATHER Allergies and Home Medications Allergies Coded Allergies: No Known Drug Allergies (Unverified , 08/27/13) Home Medications Apixaban 2.5 Mg Tablet, 2.5 MG PO BID, #60 Ref 5 Prescribed by: STUART CUELLAR on 07/17/17 1639 Apixaban 5 Mg Tablet, (Reported) Carvedilol 25 Mg Tab, (Reported) Digoxin 250 Mcg Tablet, (Reported) Hydrochlorothiazide 25 Mg Tablet, 25 MG PO DAILY, (Reported) Hydroxyzine HCl 50 Mg Tablet, (Reported) Insulin Glargine,Hum.rec.anlog 100 Unit/1 Ml Insuln.pen, 30 UNITS SQ HS, ( Reported) Lisinopril 10 Mg Tablet, 10 MG PO DAILY for 60 Days, #30 Prescribed by: BRENDAN ADEN on 07/17/17 1118 Losartan Potassium 100 Mg Tablet, (Reported) Metformin HCl 500 Mg Tablet, 500 MG PO TIDWM, (Reported) Metoprolol Succinate 200 Mg Tab, 200 MG PO DAILY, #30 Ref 5 Prescribed by: STUART CUELLAR on 07/17/17 1433 Pantoprazole Sodium 40 Mg Tablet.dr, 40 MG PO DAILY for 30 Days, #30 Prescribed by: BRENDAN ADEN on 07/17/17 1118 Spironolactone 25 Mg Tablet, 25 MG PO DAILY, (Reported) Physical Exam-Cardiology Physical Exam Vital Signs/I&O Vital Sign - Last 12Hours 08/08/17 08/08/17 08/09/17 08/09/17 23:20 23:20 01:13 01:45 Temp 97.7 97.8 Pulse 114 98 93 Resp 23 20 25 B/P (MAP) 163/92 181/108 Pulse Ox 95 95 99 92 O2 Delivery Nasal Cannula Nasal Cannula Nasal Cannula Nasal Cannula O2 Flow Rate 5.00 5.00 5.00 5.00 08/09/17 08/09/17 08/09/17 08/09/17 01:57 02:00 02:13 02:15 Pulse 96 91 93 95 Resp 29 24 B/P (MAP) 185/113 170/119 Pulse Ox 94 95 O2 Delivery Nasal Cannula Nasal Cannula O2 Flow Rate 5.00 5.00 08/09/17 08/09/17 08/09/17 08/09/17 02:30 03:00 04:00 04:00 Temp 97.2 Pulse 83 86 85 Resp 31 16 22 B/P (MAP) 159/80 169/93 172/97 Pulse Ox 96 94 98 O2 Delivery Nasal Cannula Nasal Cannula Nasal Cannula Nasal Cannula O2 Flow Rate 5.00 5.00 5.00 5.00 08/09/17 08/09/17 08/09/17/10/17 05:00 06:00 06:55 07:00 Pulse 72 86 81 Resp 19 20 B/P (MAP) 173/94 175/95 Pulse Ox 100 97 96 O2 Delivery Nasal Cannula Nasal Cannula Nasal Cannula O2 Flow Rate 5.00 5.00 4.00 08/09/17 08:00 Temp 98.6 Pulse 93 Resp 21 B/P (MAP) 182/101 Pulse Ox 92 O2 Delivery Nasal Cannula O2 Flow Rate 5.00 Capillary Refill : Less Than 3 Seconds Constitutional: AAO x 3, well-developed, well-nourished, other (obese) HEENT: PERRL, EOMI, No xanthelasmas are seen Respiratory: other (fair to good bilateral air entry) Cardiovascular: irregularly irregular, S1 and S2, systolic murmur (faint YOU at cardiac base) Gastrointestinal: No tender, No guarding, No rebound, audible bowel sounds Extremities: No clubbing, No cyanosis, significant edema Neurologic/Psychiatric: grossly intact, power is 5/5 both on sides Skin: rash (macular rash on pubic skin) Data Review Labs Laboratory Tests 08/08/17 23:20: White Blood Count 14.5H, Red Blood Count 4.45, Hemoglobin 13.2L, Hematocrit 44, Mean Corpuscular Volume 100H, Mean Corpuscular Hemoglobin 30, Mean Corpuscular Hemoglobin Concent 30L, Red Cell Distribution Width 15.1H, Platelet Count 261, Mean Platelet Volume 11.4H, Neutrophils (%) (Auto) 81H, Lymphocytes (%) (Auto) 9L, Monocytes (%) (Auto) 9, Eosinophils (%) (Auto) 1, Basophils (%) (Auto) 0, Neutrophils # (Auto) 11.7H, Lymphocytes # (Auto) 1.3, Monocytes # (Auto) 1.3H, Eosinophils # (Auto) 0.2, Basophils # (Auto) 0.1, Prothrombin Time 18.6H, INR Comment 1.6H, Activated Partial Thromboplast Time 35, D-Dimer 1.64H, Sodium Level 142, Potassium Level 4.8, Chloride Level 100, Carbon Dioxide Level 30, Anion Gap 12, Blood Urea Nitrogen 14, Creatinine 1.13, Estimat Glomerular Filtration Rate > 60, BUN/Creatinine Ratio 12, Glucose Level 214H, Calcium Level 10.1, Magnesium Level 1.9, Total Bilirubin 1.5H, Aspartate Amino Transf ( AST/SGOT) 26, Alanine Aminotransferase (ALT/SGPT) 31, Alkaline Phosphatase 55, Myoglobin 32.1, Troponin I < 0.30, B-Type Natriuretic Peptide 1677.3H, Total Protein 7.8, Albumin 4.1 08/09/17 04:00: White Blood Count 11.3H, Red Blood Count 4.26L, Hemoglobin 12.7L, Hematocrit 43 , Mean Corpuscular Volume 100H, Mean Corpuscular Hemoglobin 30, Mean Corpuscular Hemoglobin Concent 30L, Red Cell Distribution Width 15.1H, Platelet Count 209, Mean Platelet Volume 11.6H, Neutrophils (%) (Auto) 84H, Lymphocytes ( %) (Auto) 7L, Monocytes (%) (Auto) 8, Eosinophils (%) (Auto) 1, Basophils (%) ( Auto) 0, Neutrophils # (Auto) 9.5H, Lymphocytes # (Auto) 0.8L, Monocytes # (Auto ) 0.9, Eosinophils # (Auto) 0.1, Basophils # (Auto) 0.0, Sodium Level 144, Potassium Level 4.7, Chloride Level 100, Carbon Dioxide Level 32, Anion Gap 12, Blood Urea Nitrogen 14, Creatinine 1.03, Estimat Glomerular Filtration Rate > 60 , BUN/Creatinine Ratio 14, Glucose Level 164H, Calcium Level 10.0, Triglycerides Level 121, Cholesterol Level 109, LDL Cholesterol Direct 55, VLDL Cholesterol 24, HDL Cholesterol 32L Laboratory Tests 08/08/17 23:20 08/09/17 04:00 A/P-Cardiology Assessment/Admission Diagnosis Shortness of breath, multifactorial (see below) Morbid obesity (BMI 49) with confirmed obesity-hypoventilation syndrome that is being treated by Dr 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 LVEF is 35-40%. Grade I diastolic dysfunction. LA is severely dilated. Mild MR Persistent atrial fibrillation/flutter with variable rate control OAC with Eliquis for stroke prophylaxis. Compliant with full dose Eliquis since 07/20/17 H/o GI bleed in mid Jul 2017. Endoscopy of 07-15-[address] Reyes showed grade 3 esophagitis. Multiple, nonbleeding distal gastric erosions and shallow ulceres. Multiple nonbleeding duodenal erosions. HTN Anxiety Cellulitis involving the pubic skin Discussion and Recomendations * Complex management due to multiple comorbidities all of which seem to originate from morbid obesity * Was due for SEBASTIAN/cardioversion as outpatient today but was admitted through ER this am and has already had a full breakfast. Accordingly, we are holding off on the procedure * Heart rate is under fair control: continue beta-evie and dig * For heart failure due to dilated cardiomyopathy, iv furosemide has been initiated. Continue bb, dig and spironolactone. Increase JANICE-inhibitor * Monitor labs * Management of cellulitis is with the Med Svce * We recommend Pulm consult for management of his obesity-hypovent syndrome * We discussed his CV issues in detail with him and advised continuing efforts at wgt loss * Dr Miles would be covering me beginning tomorrow Clinical Quality Measures DVT/VTE Risk/Contraindication: Risk Factor Score Per Nursin RFS Level Per Nursing on Admit: 4+=Very High STUART CUELLAR MD FACP FAC CCDS Aug 09, 2017 10:15
[2017-08-09] MEDS ORDERED: PANTOPRAZOLE 40 MG (PROTONIX) TAB PO NR (10:30)
[2017-08-09] MEDS ORDERED: VANCOMYCIN 1 GM/NS 250 ML IVPB IV SCH ×2 (13:00)
[2017-08-09] MEDS: FUROSEMIDE 40 MG/4 ML INJ (LASIX) IVP SCH (18:13)
[2017-08-09] MEDS ORDERED: PANT40TA3 PO (18:39)
[2017-08-09] MEDS ORDERED: METO200T32 PO (18:39)
[2017-08-09] MEDS ORDERED: LISI10TA2 PO (18:39)
[2017-08-09] MEDS ORDERED: FENO145T20 PO (18:39)
[2017-08-09] MEDS ORDERED: DILT240C86 PO (18:39)
[2017-08-09] MEDS: inSUlin DETERMIR 1 UNIT/0.01 ML (LEVEMIR) CHARGE PER UNIT SQ SCH (20:56)
[2017-08-10] VITALS (11 sets, daily range): BP systolic 122–164; BP diastolic 68–96
[2017-08-10 05:08] LABS: ANION GAP 11 MMOL/L (5-14); BLOOD UREA NITROGEN 17 MG/DL (7-18); BUN/CREATININE RATIO 17; CARBON DIOXIDE 40 MMOL/L (21-32); CHLORIDE 95 MMOL/L (98-107); CREATININE SERUM 1.02 MG/DL (0.60-1.30); GFR ESTIMATED > 60; GLUCOSE 159 MG/DL (70-105); MAGNESIUM 1.5 MG/DL (1.8-2.4); POTASSIUM 4.1 MMOL/L (3.6-5.0); SODIUM 146 MMOL/L (135-145)
[2017-08-10 05:17] LABS: DIGOXIN 0.68 NG/ML (0.80-2.00)
[2017-08-10] MEDS: FUROSEMIDE 40 MG/4 ML INJ (LASIX) IVP SCH ×2 (07:07→16:41)
[2017-08-10] MEDS: PANTOPRAZOLE 40 MG (PROTONIX) TAB PO SCH (07:08)
[2017-08-10] MEDS: inSUlin (REGULAR) HUMAN 1 UNIT/0.01 ML (CHARGE PER UNIT) SC SCH ×4 (07:08→21:04)
--- NOTE | 2017-08-10 08:35 | Progress Note-Hospitalist ---
Subjective HPI/CC On Admission Date Seen by Provider: Aug 10, 2017 Time Seen by Provider: 08:10 Pt is a 36yoCM with a PMH of developmental delay, CHF, a fib, and IDDMII who presented to the ER last night with complaints of SOB. He is a poor historian due to developmental delay but was able to tell me that he started to feel SOB yesterday worse than he normally is. He reports compliance with his medications and denies any changes in his diet. He denies a cough or fever. He wears 2lpm of oxygen at home and is unable to tell me if he had needed morning. He has noticed some worsening swelling for the past few weeks. Per review of ER records he was also concerned about a rash on his groin but he denied any complaints during my interview. Subjective/Events-last exam Pt reports doing well today. He would like to get in his chair today and walk if able. Objective Exam Vital Signs Vital Sign - Last 12Hours Capillary Refill : Less Than 3 Seconds General Appearance: No Apparent Distress Respiratory: Lungs Clear, No Respiratory Distress Cardiovascular: No Murmur, Irregularly Irregular Gastrointestinal: Normal Bowel Sounds, Non Tender, Soft Extremity: Non Tender, No Calf Tenderness Neurologic/Psychiatric: Alert, Oriented x3 Results/Procedures Lab Laboratory Tests 08/10/17 03:55 Assessment/Plan Assessment and Plan Assess & Plan/Chief Complaint Decompensated heart failure Diagnosis/Problems Diagnosis/Problems (1) Acute decompensated heart failure Assessment & Plan: Echo of 07/15/17: mod to severe dilation of LV, severe dilation of LA, LVEF approx 35% Continue on IV lasix Cardiology Consult, appreciate recs Fluid restriction, Low Na diet strict I/Os Daily weights (2) Atrial fibrillation Assessment & Plan: Continue eliquis, metoprolol Review shows on lower dose of Eliquis due to recent UGI bleed Endoscopy negative (3) Cellulitis Status: Acute Assessment & Plan: On Vanc day #2 given history of previous cellulitis responding only to Vanc No signs of sepsis at this time Will consider Dalbavancin if HF improves immensely nd still need IV abx Qualifiers: Qualified Codes: L03.818 - Cellulitis of other sites (4) Insulin dependent diabetes mellitus Assessment & Plan: Continue home insulin SSI A (5) Essential (primary) hypertension Assessment & Plan: Continue home meds (6) Prophylactic measure Assessment & Plan: Eliquis Low Na, Carb controlled diet Saline Lock MARIA DE JESUS TODD MD Aug 10, 2017 8:35 am
[2017-08-10] MEDS: APIXABAN 5 MG (ELIQUIS) TABLET PO SCH ×2 (08:44→21:04)
[2017-08-10] MEDS: lisINopril 20 MG (ZESTRIL) TAB PO SCH (08:44)
[2017-08-10] MEDS: SPIRONOLACTONE 25 MG (ALDACTONE) TAB PO SCH (08:44)
[2017-08-10] MEDS: meTOprolol SUCCINATE 100 MG (TOPROL XL) TAB PO SCH (08:44)
[2017-08-10] MEDS: DIGOXIN 0.25 MG (LANOXIN) TAB PO SCH (08:44)
[2017-08-10] MEDS: MICONAZOLE 2% POWDER (DESENEX AF) 90 GM TOP SCH ×4 (08:44→21:04)
[2017-08-10] MEDS: VANCOMYCIN 2000 MG/NS 500 ML IVPB IV SCH ×2 (08:44)
[2017-08-10] MEDS ORDERED: SPIRONOLACTONE 25 MG (ALDACTONE) TAB PO SCH (09:00)
--- NOTE | 2017-08-10 12:57 | Cardiology Progress Note ---
Cardiology SOAP Progress Note Subjective: no symptoms Objective: I&O/Vital Signs Vital Sign - Last 12Hours 08/10/17 08/10/17 08/10/17 08/10/17 01:00 01:00 02:00 03:00 Pulse 89 89 85 87 Resp 29 16 25 B/P (MAP) 139/82 147/76 138/68 Pulse Ox 93 99 94 O2 Delivery Nasal Cannula Nasal Cannula Nasal Cannula O2 Flow Rate 4.00 4.00 4.00 08/10/17 08/10/17 08/10/17 08/10/17 04:00 04:00 05:00 06:00 Temp 96.6 Pulse 80 91 78 Resp 15 39 36 B/P (MAP) 146/84 155/76 164/96 Pulse Ox 93 94 96 98 O2 Delivery Nasal Cannula Nasal Cannula Nasal Cannula Nasal Cannula O2 Flow Rate 4.00 4.00 4.00 4.00 08/10/17 08/10/17 08/10/17 08/10/17 07:00 08:00 08:00 09:00 Temp 97.4 Pulse 99 88 Resp 20 B/P (MAP) 154/80 Pulse Ox 97 97 98 O2 Delivery Nasal Cannula Nasal Cannula Nasal Cannula O2 Flow Rate 4.00 4.00 4.00 08/10/17 11:24 Pulse Ox 97 O2 Delivery Nasal Cannula O2 Flow Rate 4.00 Weight (Pounds): 318 Weight (Ounces): 9.6 Weight (Calculated Kilograms): 144.774791 Constitutional: AAO x 3, well-developed, well-nourished, other (obese) Respiratory: No accessory muscle use, No respiratory distress, No chest tender , No chest expansion is symmetric, No chest is bilaterally symmetric, No lungs clear to percussion, No lungs clear to auscultation, No crackles, No rhonchi, No rales, No stridor, No wheezing, No pleural rub, other (fair to good bilateral air entry) Cardiovascular: irregularly irregular, S1 and S2, systolic murmur (faint YOU at cardiac base) Gastrointestional: No tender, No soft, No round, No distended, No pulsatile mass, No organomegaly, No guarding, No rebound, No tenderness, No hernia, No mass, audible bowel sounds, No abnormal bowel sounds, No abdominal bruits, No spleenomegaly, No other Extremities: No clubbing, No cyanosis, significant edema Neurologic/Psychiatric: grossly intact, power is 5/5 both on sides Skin: rash (macular rash on pubic skin) Results/Procedures: Labs Laboratory Tests 08/09/17 18:00: Glucometer 146H 08/09/17 20:47: Glucometer 175H 08/10/17 03:55: Sodium Level 146H, Potassium Level 4.1, Chloride Level 95L, Carbon Dioxide Level 40H, Anion Gap 11, Blood Urea Nitrogen 17, Creatinine 1.02, Estimat Glomerular Filtration Rate > 60, BUN/Creatinine Ratio 17, Glucose Level 159H, Calcium Level 10.0, Magnesium Level 1.5L, Digoxin Level 0.68L 08/10/17 11:09: Glucometer 119H A/P: Assessment/Dx: Shortness of breath, multifactorial (see below) Morbid obesity (BMI 49) with confirmed obesity-hypoventilation syndrome that is being treated by 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 LVEF is 35-40%. Grade I diastolic dysfunction. LA is severely dilated. Mild MR Persistent atrial fibrillation/flutter with variable rate control OAC with Eliquis for stroke prophylaxis. Compliant with full dose Eliquis since 07/20/17 H/o GI bleed in mid Jul 2017. Endoscopy of 07-15-[address] Reyes showed grade 3 esophagitis. Multiple, nonbleeding distal gastric erosions and shallow ulceres. Multiple nonbleeding duodenal erosions. HTN Anxiety Cellulitis Plan: * Complex management due to multiple comorbidities all of which seem to originate from morbid obesity * SEBASTIAN/cardioversion tomorrow. Nothing by mouth after midnight. * Heart rate is under fair control: continue beta-evie and dig * For heart failure due to dilated cardiomyopathy, iv furosemide has been initiated. Continue bb, dig and spironolactone. Increase JANICE-inhibitor * Monitor labs * Management of cellulitis is with the Med Svce * We recommend Pulm consult for management of his obesity-hypovent syndrome * We discussed his CV issues in detail with him and advised continuing efforts at [facility] loss Thank you for your consultation. Please call me if you have any questions. M. James Khalid, MD, FACP, FACC, FSCAI, FHRS, CCDS Interventional Cardiology Cardiac Electrophysiology Vascular Medicine and Endovascular Interventions Diagnosis/Problems Diagnosis/Problems (1) Acute decompensated heart failure Assessment & Plan: Echo of 07/15/17: mod to severe dilation of LV, severe dilation of LA, LVEF approx 35% Continue on IV lasix Cardiology Consult, appreciate recs Fluid restriction, Low Na diet strict I/Os Daily weights (2) Atrial fibrillation Assessment & Plan: Continue eliquis, metoprolol Review shows on lower dose of Eliquis due to recent UGI bleed Endoscopy negative (3) Cellulitis Status: Acute Assessment & Plan: On Vanc day #2 given history of previous cellulitis responding only to Vanc No signs of sepsis at this time Will consider Dalbavancin if HF improves immensely nd still need IV abx Qualifiers: Qualified Codes: L03.818 - Cellulitis of other sites (4) Insulin dependent diabetes mellitus Assessment & Plan: Continue home insulin SSI A (5) Essential (primary) hypertension Assessment & Plan: Continue home meds (6) Prophylactic measure Assessment & Plan: Eliquis Low Na, Carb controlled diet Saline Lock Angel BACA MD Aug 10, 2017 12:57 pm
--- NOTE | 2017-08-10 13:01 | Occupational Therapy Eval ---
OT Evaluation-General/PLF Medical Diagnosis Admission Date Aug 09, 2017 at 01:00 Medical Diagnosis: Acute decompensated heart failure Onset Date: Aug 09, 2017 Therapy Diagnosis Therapy Diagnosis: Weakness Height/Weight Height (Feet): 5 Height (Inches): 9.00 Weight (Pounds): 318 Weight (Ounces): 9.6 Precautions Precautions/Isolations: Fall Prevention, Standard Precautions Safety Interventions: Reorient-PRN Weight Bear Status Weight Bearing Restriction: Weight Bearing/Tolerated Referral Physician: Dr. Morales Referral Reason: Activity Tolerance, Self Care, Evaluation/Treatment, Strengthening/ROM Medical History Pertinent Medical History: Atrial Fib Additional Medical History CHF, SOB, HTN, Developmental disorder Current History Pt lives with mother. Came to ER with SOB. Reviewed History: Yes Social History Home: Single Level Current Living Status: Other Family Entry Into Home: Ramp ADL-Prior Level of Function ADL PLOF Comments Pt. was independent with all basic self care needs previous to hospitalization. DME/Equipment: Bath Chair, Shower Drive Self: No OT Current Status Subjective No pain reported. Appearance Pt. up in chair. Agrees to work with OT. Mental Status/Objective Patient Orientation: Person, Place Current Hand Dominance: Right Upper Extremity ROM WFL Upper Extremity Strength 5/5 bilateral UE ADL-Treatment Functional [place] Measure 0=Not Assessed/NA 4=Minimal Assistance 1=Total Assistance 5=Supervision or Setup 2=Maximal Assistance 6=Modified [place] 3=Moderate Assistance 7=Complete IndependenceIRFPAI Quality Coding Scale 6 Independent with activity with or without an assistive device 5 Patient requires set up or clean up by helper. Patient completes activity by themselves 4 Supervision or touching assist (CGA). [place] provide cues , steadying assist 3 The helper provides less than half the effort to complete the activity 2 The helper provides more than half the effort to complete the activity 1 Dependent. The helper does all the effort to complete an activity 7 Patient refused to complete or attempt activity 9 The patient did not perform the activity before the current illness or injury 88 Not attempted due to Medical conditions or safety concerns Lower Body Dressing (FIM): 2 (Pt. is unable to reach feet. States, "I am swollen right now.") Transfers (B, C, W/C) (FIM): 4 (CGA to stand due to decreased balance.) Other Treatments Pt. states that he has already bathed, but agrees to work later on LE dressing using adaptive equipment at later time. Will come back this afternoon for AE training. Education OT Patient Education: Correct positioning, Modified ADL techniques, Progress toward Goal/Update tx plan, Purpose of tx/functional activities, Reviewed precautions, Rehab process, Transfer techniques Teaching Recipient: Patient Teaching Methods: Demonstration, Discussion Response to Teaching: Verbalize Understanding, Return Demonstration OT Short Term Goals Short Term Goals 1=Demonstrate adherence to instructed precautions during ADL tasks. 2=Patient will verbalize/demonstrate understanding of assistive devices/ modifications for ADL. 3=Patient will improve strength/tolerance for activity to enable patient to perform ADL's. OT Fdc Goals Warp Tester Goals Time Frame: Aug 17, 2017 Eating (FIM): 7 Grooming(FIM): 6 Bathing(FIM): 5 Upper Body Dressing(FIM): 6 Lower Body Dressing(FIM): 6 Toileting(FIM): 6 Transfers (B,C,W/C) (FIM): 6 Toilet/Commode Transfer(FIM): 6 Shower Transfer(FIM): 6 Additional Goals: 1-Demonstrate ADL Tasks, 2-Verbalize Understanding, 3- ImproveStrength/[place]ane 1=Demonstrate adherence to instructed precautions during ADL tasks. 2=Patient will verbalize/demonstrate understanding of assistive devices/ modifications for ADL. 3=Patient will improve strength/tolerance for activity to enable patient to perform ADL's. OT Education/Plan Problem List/Assessment Assessment: Decreased Activ Tolerance, Impaired I ADL's, Impaired Self-Care Skills Discharge Recommendations Plan/Recommendations: Continue POC Therapy D/C Recommendations: Home w/ Family Support Equpiment Recommendations-D/C: Hip Kit Target Placement Home with mother support. Treatment Plan/Plan of Care Treatment,Training & Education: Yes Patient would benefit from OT for education, treatment and training to promote independence in ADL's, mobility, safety and/or upper extremity function for ADL' s. Plan of Care: ADL Retraining, UE Funct Exercise/Act Treatment Duration: Aug 17, 2017 Frequency: 5 times per week Estimated Hrs Per Day: .25 hour per day Agreement: Yes Rehab Potential: Good Time/GCodes Start Time: 11:55 Stop Time: 12:05 Total Time Billed (hr/min): 10 Billed Treatment Time 1, SADAF GALVAN OT Aug 10, 2017 13:00
--- NOTE | 2017-08-10 13:31 | Physical Therapy Evaluation ---
PT Evaluation-General Medical Diagnosis Admission Date Aug 09, 2017 at 01:00 Medical Diagnosis: Acute decompensated heart failure Onset Date: Aug 09, 2017 Therapy Diagnosis Therapy Diagnosis: Generalized weakness Height/Weight Height (Feet): 5 Height (Inches): 9.00 Weight (Pounds): 318 Weight (Ounces): 9.6 Precautions Precautions/Isolations: Fall Prevention, Standard Precautions Weight Bear Status Right Lower Extremity: Right Weight Bearing/Tolerated Left Lower Extremity: Left Weight Bearing/Tolerated Referral Physician: Dr. Morales Reason for Referral: Gait Medical History Pertinent Medical History: Atrial Fib, DM, HTN Current History Admitted 08/09/17 with shortness of breath. Found to have acute decompensated heart rate. Reviewed History: Yes Social History Home: Single Level Current Living Status: Other Family Entry Into Home: Ramp Prior/[facility] Prior Level of Function Functional [place] Measure 0=Not Assessed/NA 4=Minimal Assistance 1=Total Assistance 5=Supervision or Setup 2=Maximal Assistance 6=Modified [place] 3=Moderate Assistance 7=Complete [place] Bed Mobility: 7 Transfers (B,C,W/C) (FIM): 7 Gait: 7 Fully independent at home and in the community. 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 Found to have acute decompensated heart rate, sepsis, and cellulitis. Objective Patient Orientation: Normal For Age Problem Solving: Good Attachments: Oxygen, IV ROM/Strength ROM Upper Extremities WNL ROM Lower Extremities WNL Strength Upper Extremities WNL Strength Lower Extremities WNL Sensory Vision: Wears Glasses Hearing: Functional Hand Dominance: Right Transfers Functional [place] Measure 0=Not Assessed/NA 4=Minimal Assistance 1=Total Assistance 5=Supervision or Setup 2=Maximal Assistance 6=Modified [place] 3=Moderate Assistance 7=Complete [place] Transfers (B, C, W/C) (FIM): 6 Scootin Rollin Supine to/from Sit: 6 Sit to/from Stand: 6 bed t/f WC(FIM only if WC use): 6 Patient is modified independent with transfers and bed mobility using hand rails for support. Gait Mode of Locomotion: Walk Anticipated Mode of Locomotion: Walk Distance (FIM): 3=150 ft Distance: 300 Gait Level of Assist: 5 Gait Persons Needed: 5 Gait Assistive Device: None Comments/Gait Description stable gait without assistive device, provided stand by assist and assist for IV pole Balance Sitting Static: Normal Sitting Dynamic: Normal Standing Static: Good Standing Dynamic: Good Assessment/Needs Rehab Potential: Good Post Rehab Potential-Barriers: none Equipment Needs none PT Shelter Goals Shelter Goals PT Interlocking Machine Operator Goals Time Frame: Aug 10, 2017 Transfers (B,C,W/C) (FIM): 6 Gait (FIM): 6 Gait distance (FIM): 3=150 ft Distance: 300 Gait Level of Assist: 5 Gait Assistive Device: None PT Plan Problem List Problem List: Activity Tolerance Treatment/Plan Treatment Plan: Discontinue PT, goals met Treatment Plan: Functional Activity Zane Treatment Duration: Aug 10, 2017 Frequency: 1 time per week Estimated Hrs Per Day: .25 hour per day Patient and/or Family Agrees t: Yes Safety Risks/Education Patient Education: Safety Issues Teaching Recipient: Patient Teaching Methods: Discussion Response to Teaching: Verbalize Understanding Patient instructed to pace activity in the event of shortness of breath. Encouraged to follow his physician's instructions for diet and activity. Discharge Recommendations Plan Patient has demonstrated independent and safe mobility. Patient is discharged from therapy at this time. Therapy D/C Recommendations: Home w/ Family Support Equpiment Recommendations-D/C: None Target Placement home with his mother Time/GCodes Time In: 1115 Time Out: 1145 Total Billed Treatment Time: 30 Total Billed Treatment visit, evaluation 30 minutes G Codes Necessary: No MANUEL HERNADEZ PT Aug 10, 2017 13:31
[2017-08-10] MEDS: MAGNESIUM 1 GM/100 ML IVPB 100 ML IV SCH ×2 (13:38→14:42)
--- NOTE | 2017-08-10 14:38 | Occupational Ther Daily Note ---
OT Current Status-Daily Note Subjective Pt sitting in chair, agrees to treatment. Pt states he is having a little pain in his left hand secondary to IV (not rated), but otherwise has no pain. Mental Status/Objective Functional [place] Measure 0=Not Assessed/NA 4=Minimal Assistance 1=Total Assistance 5=Supervision or Setup 2=Maximal Assistance 6=Modified [place] 3=Moderate Assistance 7=Complete [place] Attachments: IV, Oxygen ADL-Treatment Education provided regarding use of adaptive equipment for LE dressing. Pt doffed socks with SBA using dressing stick. Pt picked socks up off the floor using uniformer. Pt educated on use of sock aid. Pt donned right sock with sock aid, but states he doesn't think he needs to use it. Pt then demonstrated ability to don left sock with SBA without equipment. Pt states he is pretty independent and feels confident he will be able to take care of himself. Pt sitting in chair with needs met after session. Continue POC. OT Short Term Goals Short Term Goals 1=Demonstrate adherence to instructed precautions during ADL tasks. 2=Patient will verbalize/demonstrate understanding of assistive devices/ modifications for ADL. 3=Patient will improve strength/tolerance for activity to enable patient to perform ADL's. OT Group Home Goals Technical Maintenance Technician Goals Time Frame: Aug 17, 2017 Eating (FIM): 7 Grooming(FIM): 6 Bathing(FIM): 5 Upper Body Dressing(FIM): 6 Lower Body Dressing(FIM): 6 Toileting(FIM): 6 Transfers (B,C,W/C) (FIM): 6 Toilet/Commode Transfer(FIM): 6 Shower Transfer(FIM): 6 Additional Goals: 1-Demonstrate ADL Tasks, 2-Verbalize Understanding, 3- ImproveStrength/Zane 1=Demonstrate adherence to instructed precautions during ADL tasks. 2=Patient will verbalize/demonstrate understanding of assistive devices/ modifications for ADL. 3=Patient will improve strength/tolerance for activity to enable patient to perform ADL's. OT Education/Plan Discharge Recommendations Plan/Recommendations: Continue POC Treatment Plan/Plan of Care Patient would benefit from OT for education, treatment and training to promote independence in ADL's, mobility, safety and/or upper extremity function for ADL' s. Plan of Care: ADL Retraining, UE Funct Exercise/Act Treatment Duration: Aug 17, 2017 Frequency: 5 times per week Estimated Hrs Per Day: .25 hour per day Agreement: Yes Rehab Potential: Good Time/GCodes Start Time: 14:12 Stop Time: 14:22 Total Time Billed (hr/min): 10 Billed Treatment Time 1 visit, ADL(10minutes) RICHAR MOISE OT Aug 10, 2017 14:38
[2017-08-10] MEDS ORDERED: TROUGH ORDER-PHARMACY XX NR (19:00)
[2017-08-10] MEDS: inSUlin DETERMIR 1 UNIT/0.01 ML (LEVEMIR) CHARGE PER UNIT SQ SCH (21:03)
[2017-08-11 01:47] VITALS: BP 158/83
[2017-08-11] MEDS: PANTOPRAZOLE 40 MG (PROTONIX) TAB PO SCH (05:31)
[2017-08-11 06:41] VITALS: BP 167/95
[2017-08-11] MEDS: inSUlin (REGULAR) HUMAN 1 UNIT/0.01 ML (CHARGE PER UNIT) SC SCH ×4 (06:48→21:28)
--- NOTE | 2017-08-11 06:58 | Pulmonary Consultation ---
History of Present Illness History of Present Illness Date of Consultation 08/11/17 06:52 Time Seen by Provider: 06:54 Date of Admission History of Present Illness 36yo morbidly obese patient presented on 08/09 secondary to worsening SOB he was found to have Afib RVR, and CHF. Denies f/ns/c. Cardiology is planning a SEBASTIAN and cardioversion today. Pt's SOB is improved. patient uses 2 liters of oxygen at home. I am consulted for probable obesity hypoventilation syndrome. Allergies and Home Medications Allergies Coded Allergies: No Known Drug Allergies (Unverified , 08/27/13) Home Medications Apixaban 5 Mg Tablet, 5 MG PO BID, (Reported) Carvedilol 25 Mg Tab, 25 MG PO BID, (Reported) Digoxin 250 Mcg Tablet, 250 MCG PO HS, (Reported) Diltiazem HCl 240 Mg Cap.er.24h, 240 MG PO DAILY, (Reported) Hydrochlorothiazide 25 Mg Tablet, 25 MG PO DAILY, (Reported) Hydroxyzine HCl 50 Mg Tablet, 50 MG PO Q6H PRN for ANXIETY, (Reported) Insulin Glargine,Hum.rec.anlog 100 Unit/1 Ml Insuln.pen, 30 UNITS SQ HS, ( Reported) Lisinopril 10 Mg Tablet, 10 MG PO DAILY, (Reported) Metformin HCl 500 Mg Tablet, 500 MG PO TIDWM, (Reported) Metoprolol Succinate 200 Mg Tab.er.24h, 200 MG PO DAILY, (Reported) Pantoprazole Sodium 40 Mg Tablet.dr, 40 MG PO DAILY, (Reported) Spironolactone 25 Mg Tablet, 25 MG PO HS, (Reported) Past Dmygiep-Cgzthi-Bqekhp Hx Patient Social History Alcohol Use: Denies Use Number of Drinks Today: AA Recreational Drug Use: No Smoking Status: Never a Smoker 2nd Hand Smoke Exposure: No Recent Foreign Travel: No Contact w/Someone Who Travel: No Recent Infectious Disease Expo: No Recent Hopitalizations: No Immunizations Up To Date Tetanus Booster (TDap): Unknown PED Vaccines UTD: Yes Date of Influenza Vaccine: Aug 28, 2013 Seasonal Allergies Seasonal Allergies: No Surgeries History of Surgeries: No Respiratory History of Respiratory Disorde: No Respiratory Disorders: Sleep Apnea Currently Using CPAP: No Currently Using BIPAP: No Cardiovascular History of Cardiac Disorders: Yes (CHF) Cardiac Disorders: Atrial Fibrillation, High Cholesterol, Hypertension Neurological History of Neurological Disord: Yes Neurological Disorders: Developmental Disorder Genitourinary History of Genitourinary Disor: No Gastrointestinal History of Gastrointestinal Di: Yes Gastrointestinal Disorders: Gastroesophageal Reflux, Chronic Diarrhea, Ulcer Musculoskeletal History of Musculoskeletal Dis: No Endocrine History of Endocrine Disorders: Yes Endocrine Disorders: Diabetes, Insulin dep Are Your Blood Sugars Over 250: No HEENT History of HEENT Disorders: No Loss of Vision: Denies Hearing Impairment: Denies Cancer History of Cancer: No Psychosocial History of Psychiatric Problem: No Integumentary History of Skin or Integumenta: No Blood Transfusions History of Blood Disorders: No Adverse Reaction to a Blood Tr: No Family Medical History Significant Family History: Heart Disease, CVA, Hypertension Family Medial History: Blood clots 19 FATHER FH: stroke 19 FATHER Respiratory disorder 19 FATHER Review of Systems Time Seen by Provider: 07:50 Constitutional: Sweats, Weakness, Malaise, No: Fever, Chills, Other Eyes: No: Pain, Vision change, Conjunctivae inflammation, Eyelid inflammation, Other, Redness Respiratory: Cough, Dry, Shortness of breath, SOB with excertion Cardiovascular: Orthopnea, Paroxysmal Noc. Dyspnea, Edema, Lt Headedness, No: Chest Pain, Palpitations, Other Gastrointestinal: No: Nausea, Vomiting, Abdominal Pain, Diarrhea, Constipation , Melena, Hematochezia, Other Genitourinary: No Dysuria, No Frequency, No Incontinence, No Hematuria, No Retention, No Other Musculoskeletal: back pain Exam Exam Vital Signs Date Time Temp Pulse Resp B/P (MAP) Pulse Ox O2 Delivery O2 Flow Rate FiO2 08/11/17 06:41 98.8 87 20 167/95 08/11/17 04:00 Nasal Cannula 4.00 08/11/17 01:47 96.0 87 20 158/83 95 Nasal Cannula 4.00 08/11/17 01:00 77 08/11/17 00:00 Nasal Cannula 4.00 08/10/17 21:00 97 Nasal Cannula 4.00 08/10/17 20:16 Nasal Cannula 4.00 08/10/17 20:00 97 Nasal Cannula 4.00 08/10/17 19:48 96.3 87 18 130/72 97 Nasal Cannula 4.00 08/10/17 19:00 92 08/10/17 16:00 97.6 88 20 122/74 95 Nasal Cannula 4.00 08/10/17 16:00 98 Nasal Cannula 4.00 08/10/17 13:00 101 08/10/17 12:00 98.0 86 20 138/82 96 Nasal Cannula 4.00 08/10/17 11:24 97 Nasal Cannula 4.00 08/10/17 09:00 98 Nasal Cannula 4.00 08/10/17 08:00 97 Nasal Cannula 4.00 08/10/17 08:00 97.4 88 20 154/80 97 Nasal Cannula 4.00 08/10/17 07:00 99 General Appearance: No Apparent Distress, Anxious, Mild Distress, Obese HEENT: Moist Mucous Membranes Neck: Non Tender, Supple, JVD Respiratory: Lungs Clear, No Respiratory Distress Cardiovascular: No Murmur, Irregularly Irregular Capillary Refill: Less Than 3 Seconds Gastrointestinal: normal bowel sounds, non tender, soft Extremity: Non Tender, No Calf Tenderness Neurologic/Psychiatric: Alert, Oriented x3 Skin: Normal Color, Warm/Dry, Other (erythema over mons pubis) Results Lab Laboratory Tests 08/10/17 03:55 Assessment/Plan Assessment/Plan Acute decompensated CHF -Cardiology is following Morbid obesity with obesity hypoventilation syndrome -Vent to Mask has already been ordered for pt. I called DME and they will set up vent to mask today. -PT will benefit from vent to mask Dyspnea -Oxygen -noninvasive ventilation PRN and at night IDDM Afib 255 Clinical Quality Measures DVT/VTE Risk/Contraindication: Risk Factor Score Per Nursin RFS Level Per Nursing on Admit: 4+=Very High JESSIE MEYERS DO Aug 11, 2017 06:58
[2017-08-11] MEDS ORDERED: TROUGH ORDER-PHARMACY XX NR (07:00)
[2017-08-11] MEDS ORDERED: NS IV 500 ML 500 ML ONE (07:35)
[2017-08-11 07:55] LABS: ABG BASE EXCESS 19.6 MMOL/L (-2.5-2.5); ABG OXYGEN SATURATION 98 % (94-100); ABG PH 7.37 (7.37-7.43); ABG PO2 82 MMHG (79-93); ABG TCO2 48.7 MMOL/L (21.0-31.0)
--- NOTE | 2017-08-11 07:56 | Progress Note-Hospitalist ---
Subjective HPI/CC On Admission Date Seen by Provider: Aug 11, 2017 Time Seen by Provider: 07:35 Pt is a 36yoCM with a PMH of developmental delay, CHF, a fib, and IDDMII who presented to the ER last night with complaints of SOB. He is a poor historian due to developmental delay but was able to tell me that he started to feel SOB yesterday worse than he normally is. He reports compliance with his medications and denies any changes in his diet. He denies a cough or fever. He wears 2lpm of oxygen at home and is unable to tell me if he had needed morning. He has noticed some worsening swelling for the past few weeks. Per review of ER records he was also concerned about a rash on his groin but he denied any complaints during my interview. Subjective/Events-last exam Pt reports feeling better today. Reports ready for SEBASTIAN and cardioversion. Asking when he can DC. Objective Exam Vital Signs Vital Sign - Last 12Hours Capillary Refill : Less Than 3 Seconds General Appearance: No Apparent Distress, Obese Respiratory: Lungs Clear, No Respiratory Distress Cardiovascular: Regular Rate, Rhythm, No Murmur Gastrointestinal: Normal Bowel Sounds, Non Tender, Soft Extremity: Non Tender, No Calf Tenderness Neurologic/Psychiatric: Alert, Oriented x3 Assessment/Plan Assessment and Plan Assess & Plan/Chief Complaint Decompensated heart failure Diagnosis/Problems Diagnosis/Problems (1) Acute decompensated heart failure Assessment & Plan: Echo of 07/15/17: mod to severe dilation of LV, severe dilation of LA, LVEF approx 35% Continue on IV lasix while NPO for SEBASTIAN, will switch to oral after Cardiology Consult, appreciate recs strict I/Os Daily weights SEBASTIAN and cardioversion today (2) Atrial fibrillation Assessment & Plan: Continue eliquis, metoprolol Recent Endoscopy negative SEBASTIAN and cardioversion planned for today (3) Cellulitis Status: Acute Assessment & Plan: On Vanc day #3 given history of previous cellulitis responding only to Vanc No signs of sepsis at this time Will attempt to set up outpatient abx Qualifiers: Qualified Codes: L03.818 - Cellulitis of other sites (4) Insulin dependent diabetes mellitus Assessment & Plan: Continue home insulin SSI A (5) Essential (primary) hypertension Assessment & Plan: Continue Lisinopril, Spironlactone, Metoprolol BP still elevated though anticipate improvement with further diuresis Consider entresto (6) Prophylactic measure Assessment & Plan: Selam TORRESO Saline Lock MARIA DE JESUS TODD MD Aug 11, 2017 07:56
[2017-08-11 07:57] LABS: ABG HCO3 46 MMOL/L (23-27); ABG PCO2 82 MMHG (35-45); PATIENT TEMP 98.1
[2017-08-11 08:00] VITALS: BP 183/107
[2017-08-11 08:10] LABS: BLOOD UREA NITROGEN 17 MG/DL (7-18); BUN/CREATININE RATIO 17; CALCIUM 9.7 MG/DL (8.5-10.1); CHLORIDE 90 MMOL/L (98-107); CREATININE SERUM 1.01 MG/DL (0.60-1.30); GFR ESTIMATED > 60; GLUCOSE 141 MG/DL (70-105); MAGNESIUM 1.8 MG/DL (1.8-2.4); POTASSIUM 4.1 MMOL/L (3.6-5.0); SODIUM 146 MMOL/L (135-145)
[2017-08-11 08:29] LABS: ANION GAP 9 MMOL/L (5-14); CARBON DIOXIDE 47 MMOL/L (21-32)
[2017-08-11] MEDS ORDERED: LIDOCAINE 2% VISCOUS 15 ML UDC ONE (10:13)
[2017-08-11] MEDS ORDERED: proPOfol 200 MG/20 ML (DIPRIVAN) VIAL IV ONE (10:19)
[2017-08-11] MEDS ORDERED: MIDAZOLAM 5 MG/5 ML (VERSED) VIAL ONE (10:25)
[2017-08-11 11:00] VITALS: BP_SYST 151; BP_SYST 177; BP_DIAS 107; BP_DIAS 89
--- NOTE | 2017-08-11 11:34 | Progress Note-Standard ---
Standard Progress Note Progress Notes/Assess & Plan Date Seen by Provider: Aug 11, 2017 Time Seen by Provider: 10:50 Progress/Assessment & Plan Called to ICU for SEBASTIAN and Cardioversion. Patient tolerated well. 200 mg Propofol , and 3 mg versed given for sedation. Care to SIZE MARKEREDUIN POON CRNA Aug 11, 2017 11:34
--- NOTE | 2017-08-11 11:37 | Cardiac Procedure Note-CS/ASA ---
Pre-Procedure Note Pre-Op Procedure Note H&P Reviewed The H&P was reviewed, patient examined and no changes noted. Date H&P Reviewed: Aug 11, 2017 Time H&P Reviewed: 10:30 Conscious Sedation Pre-Proced Time Reviewed: 10:30 ASA Class: 3 Airway Mallampati Classification: ([place] appropriate class) I. II. III, IV Lungs Heart ASA score ASA 1: a normal healthy patient ASA 2: a patient with a mild systemic disease (mid diabetes, controlled hypertension, obesity ASA 3: a patient with a severe systemic disease that limits activity (angina , COPD, prior Myocardial infarction) ASA 4: a patient with an incapacitating disease that is a constant threat to life (CHF, renal failure) ASA 5: a moribund patient not expected to survive 24 hrs. (ruptured aneurysm) ASA 6: a declared brain patient whose organs are being harvested. For emergent operations, add the letter E after the classification Grade 1 Sedation Plan: Analgesia, Amnesia, Plan communicated to team members, Discussed options with patient/fam, Discussed risks with patient/fam Note The patient is an appropriate candidate to undergo the planned procedure, sedation, and anesthesia. The patient immediately re-assessed prior to indication. Angel BACA MD Aug 11, 2017 11:37 am
--- NOTE | 2017-08-11 11:39 | Cardiology Post Procedure Note ---
Post-Procedure Note Physician (s)/Scrap Drop Engineer (s) Physician Angel BACA MD Pre-Procedure Diagnosis Pre-Procedure Diagnosis: AF with RVR Post-Procedure Note Procedure Start Date: Aug 11, 2017 Procedure Start Time: 10:30 Name of Procedure: SEBASTIAN with Cardioversion Findings/Procedure Note No LA/WILFRIDO thrombus. Successful cardioversion with 200J. No complications Estimated blood loss (mL): none Contrast Amount: none Post-Procedure Diagnosis Post-operative diagnosis: Successful SEBASTIAN assisted cardioversion Angel BACA MD Aug 11, 2017 11:39 am
[2017-08-11] MEDS: MICONAZOLE 2% POWDER (DESENEX AF) 90 GM TOP SCH ×4 (11:50→21:30)
[2017-08-11] MEDS: VANCOMYCIN 2000 MG/NS 500 ML IVPB IV SCH ×2 (11:52)
[2017-08-11] MEDS: DIGOXIN 0.25 MG (LANOXIN) TAB PO SCH (12:12)
[2017-08-11] MEDS: SPIRONOLACTONE 25 MG (ALDACTONE) TAB PO SCH (12:12)
[2017-08-11] MEDS: APIXABAN 5 MG (ELIQUIS) TABLET PO SCH ×2 (12:12→21:28)
[2017-08-11] MEDS: meTOprolol SUCCINATE 100 MG (TOPROL XL) TAB PO SCH (12:12)
[2017-08-11] MEDS: lisINopril 20 MG (ZESTRIL) TAB PO SCH (12:12)
[2017-08-11] MEDS: FUROSEMIDE 40 MG/4 ML INJ (LASIX) IVP SCH (12:13)
--- NOTE | 2017-08-11 13:12 | Cardiology Progress Note ---
Cardiology SOAP Progress Note Subjective: No significant symptoms Objective: I&O/Vital Signs Vital Sign - Last 12Hours 08/11/17 08/11/17 08/11/17 08/11/17 01:47 04:00 06:41 07:00 Temp 96.0 98.8 Pulse 87 87 88 Resp 20 20 B/P (MAP) 158/83 167/95 Pulse Ox 95 O2 Delivery Nasal Cannula Nasal Cannula O2 Flow Rate 4.00 4.00 08/11/17 08/11/17 08:00 11:00 Pulse 79 109 Resp 12 23 B/P (MAP) 183/107 177/107 Pulse Ox 96 O2 Delivery Nasal Cannula Nasal Cannula O2 Flow Rate 4.00 4.00 Weight (Pounds): 317 Weight (Ounces): 9.6 Weight (Calculated Kilograms): 144.940408 Constitutional: AAO x 3, well-developed, well-nourished, other (obese) Respiratory: No accessory muscle use, No respiratory distress, No chest tender , No chest expansion is symmetric, No chest is bilaterally symmetric, No lungs clear to percussion, No lungs clear to auscultation, No crackles, No rhonchi, No rales, No stridor, No wheezing, No pleural rub, other (fair to good bilateral air entry) Cardiovascular: irregularly irregular, S1 and S2, systolic murmur (faint YOU at cardiac base) Gastrointestional: No tender, No soft, No round, No distended, No pulsatile mass, No organomegaly, No guarding, No rebound, No tenderness, No hernia, No mass, audible bowel sounds, No abnormal bowel sounds, No abdominal bruits, No spleenomegaly, No other Extremities: No clubbing, No cyanosis, significant edema Neurologic/Psychiatric: grossly intact, power is 5/5 both on sides Skin: rash (macular rash on pubic skin) Results/Procedures: Labs Laboratory Tests 08/10/17 16:40: Glucometer 139H 08/10/17 19:00: Vancomycin Level Trough 26.6*H 08/10/17 20:52: Glucometer 201H 08/11/17 06:47: Glucometer 153H 08/11/17 07:25: Sodium Level 146H, Potassium Level 4.1, Chloride Level 90L, Carbon Dioxide Level 47*H, Anion Gap 9, Blood Urea Nitrogen 17, Creatinine 1.01, Estimat Glomerular Filtration Rate > 60, BUN/Creatinine Ratio 17, Glucose Level 141H, Calcium Level 9.7, Magnesium Level 1.8, Vancomycin Level Trough 13.4 08/11/17 07:45: Blood Gas Puncture Site L RADIAL, Blood Gas Patient Temperature 98.1, Arterial Blood pH 7.37, Arterial Blood Partial Pressure CO2 82*H, Arterial Blood Partial Pressure O2 82, Arterial Blood HCO3 46*H, Arterial Blood Total CO2 48.7H, Arterial Blood Oxygen Saturation 98, Arterial Blood Base Excess 19.6H, Steven Test NA, Blood Gas Ventilator Setting NO, Blood Gas Inspired Oxygen 4 L NC Microbiology 08/09/17 Blood Culture - Preliminary, Resulted No growth A/P: Assessment/Dx: Shortness of breath, multifactorial (see below) Morbid obesity (BMI 49) with confirmed obesity-hypoventilation syndrome that is being treated by Dr Zuñiga, 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 LVEF is 35-40%. Grade I diastolic dysfunction. LA is severely dilated. Mild MR Persistent atrial fibrillation/flutter with variable rate control OAC with Eliquis for stroke prophylaxis. Compliant with full dose Eliquis since 07/20/17 H/o GI bleed in mid Jul 2017. Endoscopy of 07-15-[address] Reyes showed grade 3 esophagitis. Multiple, nonbleeding distal gastric erosions and shallow ulceres. Multiple nonbleeding duodenal erosions. HTN Anxiety Cellulitis Plan: * Complex management due to multiple comorbidities all of which seem to originate from morbid obesity * SEBASTIAN/cardioversion today * Heart rate is under fair control: continue beta-evie and dig * For heart failure due to dilated cardiomyopathy, iv furosemide has been initiated. Continue bb, dig and spironolactone. JANICE-inhibitor * Monitor labs * Management of cellulitis is with the Med Svce * We recommend Pulm consult for management of his obesity-hypovent syndrome * We discussed his CV issues in detail with him and advised continuing efforts at [facility] loss Thank you for your consultation. Please call me if you have any questions. Ulysses Baca MD, FACP, FACC, FSCAI, FHRS, CCDS Interventional Cardiology Cardiac Electrophysiology Vascular Medicine and Endovascular Interventions Angel BACA MD Aug 11, 2017 1:12 pm
[2017-08-11 17:00] VITALS: BP 149/87
[2017-08-11] MEDS: FUROSEMIDE 40 MG (LASIX) TAB PO SCH (17:00)
[2017-08-11 20:23] VITALS: BP 142/80
[2017-08-11] MEDS: inSUlin DETERMIR 1 UNIT/0.01 ML (LEVEMIR) CHARGE PER UNIT SQ SCH (21:28)
[2017-08-12 05:16] LABS: ANION GAP 12 MMOL/L (5-14); BLOOD UREA NITROGEN 21 MG/DL (7-18); BUN/CREATININE RATIO 26; CALCIUM 9.4 MG/DL (8.5-10.1); CARBON DIOXIDE 42 MMOL/L (21-32); CHLORIDE 90 MMOL/L (98-107); CREATININE SERUM 0.81 MG/DL (0.60-1.30); GFR ESTIMATED > 60; GLUCOSE 129 MG/DL (70-105); POTASSIUM 4.3 MMOL/L (3.6-5.0); SODIUM 144 MMOL/L (135-145)
[2017-08-12] MEDS: inSUlin (REGULAR) HUMAN 1 UNIT/0.01 ML (CHARGE PER UNIT) SC SCH ×4 (05:34→21:04)
[2017-08-12] MEDS: PANTOPRAZOLE 40 MG (PROTONIX) TAB PO SCH (06:24)
[2017-08-12] MEDS: FUROSEMIDE 40 MG (LASIX) TAB PO SCH ×2 (06:24→17:11)
[2017-08-12 06:26] VITALS: BP 155/80
[2017-08-12] MEDS ORDERED: LINE600T7 PO (08:14)
[2017-08-12] MEDS ORDERED: INSU100V5 SQ (08:14)
[2017-08-12] MEDS ORDERED: LISI-552 PO (08:14)
[2017-08-12] MEDS ORDERED: MICO90PO TOP (08:14)
[2017-08-12] MEDS: DIGOXIN 0.25 MG (LANOXIN) TAB PO SCH (08:56)
[2017-08-12] MEDS: VANCOMYCIN 2000 MG/NS 500 ML IVPB IV SCH ×2 (08:56)
[2017-08-12] MEDS: meTOprolol SUCCINATE 100 MG (TOPROL XL) TAB PO SCH (08:56)
[2017-08-12] MEDS: lisINopril 20 MG (ZESTRIL) TAB PO SCH (08:56)
[2017-08-12] MEDS: SPIRONOLACTONE 25 MG (ALDACTONE) TAB PO SCH (08:56)
[2017-08-12] MEDS: APIXABAN 5 MG (ELIQUIS) TABLET PO SCH ×2 (08:56→21:03)
[2017-08-12] MEDS: MICONAZOLE 2% POWDER (DESENEX AF) 90 GM TOP SCH ×4 (08:57→21:03)
[2017-08-12 08:58] VITALS: BP 152/103
--- NOTE | 2017-08-12 10:54 | Discharge Summary-Hospitalist ---
Diagnosis/Chief Complaint Date of Admission Aug 09, 2017 at 01:00 Date of Discharge Discharge Date: Aug 12, 2017 Discharge Time: 1400 Admission Diagnosis Acutely decompensated systolic heart failure Discharge Diagnosis Decompensated heart failure (1) Acute decompensated heart failure Status: Acute Assessment & Plan: Echo of 07/15/17: mod to severe dilation of LV, severe dilation of LA, LVEF approx 35% Continue on home meds (Lisinopril, Digoxin, Spironolactone, metoprolol) Cardiology Consult, appreciate recs strict I/Os Daily weights SEBASTIAN and cardioversion 08/11- successful (2) Atrial fibrillation Assessment & Plan: Continue eliquis, metoprolol Recent Endoscopy negative SEBASTIAN and cardioversion 08/12 (3) Cellulitis Status: Acute Assessment & Plan: On day #4 given history of previous cellulitis responding only to Plan for Zyvox at home (4) Insulin dependent diabetes mellitus Assessment & Plan: Continue home insulin SSI A (5) Essential (primary) hypertension Assessment & Plan: Continue Lisinopril, Spironlactone, Metoprolol BP improved with diuresis, mildly elevated still but anticipate improvement (6) Prophylactic measure Assessment & Plan: Eliquis Low Na diet Saline Lock Discharge Summary Consultations Cardiology- Dr. Miles Discharge Physical Examination Allergies: Coded Allergies: No Known Drug Allergies (Unverified , 08/27/13) Vitals & I&Os Vital Signs Date Time Temp Pulse Resp B/P (MAP) Pulse Ox O2 Delivery O2 Flow Rate FiO2 08/12/17 08:58 96.2 119 20 152/103 99 Nasal Cannula 3.00 Hospital Course Pt presented with complaints of SOB and was found to have acutely decompensated heart failure. He was admitted for stabilization. He responded well to IV diuretics and underwent SEBASTIAN and cardioversion on 08/11. He was transitioned to oral Lasix and was DC home in stable condition. Labs (last 24 hrs) Laboratory Tests 08/11/17 16:29: Glucometer 160H 08/11/17 20:11: Glucometer 233H 08/12/17 04:10: Sodium Level 144, Potassium Level 4.3, Chloride Level 90L, Carbon Dioxide Level 42H, Anion Gap 12, Blood Urea Nitrogen 21H, Creatinine 0.81, Estimat Glomerular Filtration Rate > 60, BUN/Creatinine Ratio 26, Glucose Level 129H, Calcium Level 9.4, Magnesium Level 2.0 Microbiology 08/09/17 Blood Culture - Preliminary, Resulted No growth Pending Labs Laboratory Tests 08/12/17 04:10: Sodium Level 144, Potassium Level 4.3, Chloride Level 90, Carbon Dioxide Level 42, Anion Gap 12, Blood Urea Nitrogen 21, Creatinine 0.81, Estimat Glomerular Filtration Rate > 60, BUN/Creatinine Ratio 26, Glucose Level 129, Calcium Level 9.4, Magnesium Level 2.0 Discharge Home Medications: Active Scripts Active Linezolid 600 Mg Tablet 600 Mg PO BID 6 Days Lisinopril 20 Mg Tablet 40 Mg PO DAILY Lotrimin AF (Miconazole Nitrate) 90 Gm Powder 0 Gm TOP QID Levemir (Insulin Determir) 1,000 Units/10 Ml Soln 20 Unit SQ HS Reported Pantoprazole Sodium 40 Mg Tablet.dr 40 Mg PO DAILY Metoprolol Succinate 200 Mg Tab.er.24h 200 Mg PO DAILY Lisinopril 10 Mg Tablet 10 Mg PO DAILY Cardizem Cd (Diltiazem HCl) 240 Mg Cap.er.24h 240 Mg PO DAILY Hydroxyzine HCl 50 Mg Tablet 50 Mg PO Q6H PRN Coreg (Carvedilol) 25 Mg Tab 25 Mg PO BID Eliquis (Apixaban) 5 Mg Tablet 5 Mg PO BID Digoxin 250 Mcg Tablet 250 Mcg PO HS Metformin HCl 500 Mg Tablet 500 Mg PO TIDWM Hydrochlorothiazide 25 Mg Tablet 25 Mg PO DAILY Spironolactone 25 Mg Tablet 25 Mg PO HS Lantus Solostar (Insulin Glargine,Hum.rec.anlog) 100 Unit/1 Ml Insuln.pen 30 Units SQ HS Instructions to patient/family Please see electronic discharge instructions given to patient. Clinical Quality Measures AMI/AHF: Ejection Fraction: <40 (DOV/ARB Indicated) D/C Medications Addressed: Dov inhibitors, Beta evie, Digoxin, Diuretic DVT/VTE Risk/Contraindication: Risk Factor Score Per Nursin RFS Level Per Nursing on Admit: 4+=Very High Problem Qualifiers (1) Atrial fibrillation: Atrial fibrillation type: persistent Qualified Codes: I48.1 - Persistent atrial fibrillation (2) Cellulitis: Site of cellulitis: other site Qualified Codes: L03.818 - Cellulitis of other sites MARIA DE JESUS TODD MD Aug 12, 2017 10:54
[2017-08-12 11:39] VITALS: BP 150/87
[2017-08-12 12:00] VITALS: BP 150/87
[2017-08-12] MEDS ORDERED: INSU100I10 SQ (12:20)
[2017-08-12 16:31] VITALS: BP 150/82
[2017-08-12] MEDS: SOTALOL 80 MG (BETAPACE) TAB PO SCH (19:04)
[2017-08-12 20:00] VITALS: BP 157/90
[2017-08-12] MEDS: inSUlin DETERMIR 1 UNIT/0.01 ML (LEVEMIR) CHARGE PER UNIT SQ SCH (21:04)
--- NOTE | 2017-08-12 22:10 | Cardiology Progress Note ---
Cardiology SOAP Progress Note Subjective: No cardiac complaints. Objective: I&O/Vital Signs Vital Sign - Last 12Hours 08/12/17 08/12/17 08/12/17 08/12/17 11:30 11:39 11:39 12:00 Temp 96.9 Pulse 85 Resp 20 B/P (MAP) 150/87 150/87 Pulse Ox 94 O2 Delivery Nasal Cannula Nasal Cannula Nasal Cannula O2 Flow Rate 3.00 3.00 3.00 08/12/17 08/12/17 08/12/17 08/12/17 13:00 16:31 16:31 18:36 Temp 96.7 Pulse 80 82 Resp 20 B/P (MAP) 150/82 Pulse Ox 93 O2 Delivery Nasal Cannula Nasal Cannula Room Air O2 Flow Rate 3.00 3.00 08/12/17 08/12/17 19:00 20:00 Pulse 95 O2 Delivery Nasal Cannula O2 Flow Rate 3.00 Intake and Output 08/13/17 00:00 Intake Total 720 ml Balance 720 ml Weight (Pounds): 308 Weight (Ounces): 9.6 Weight (Calculated Kilograms): 139.217099 Constitutional: AAO x 3, well-developed, well-nourished, other (obese) Respiratory: No accessory muscle use, No respiratory distress, No chest tender , No chest expansion is symmetric, No chest is bilaterally symmetric, No lungs clear to percussion, No lungs clear to auscultation, No crackles, No rhonchi, No rales, No stridor, No wheezing, No pleural rub, other (fair to good bilateral air entry) Cardiovascular: irregularly irregular, S1 and S2, systolic murmur (faint YOU at cardiac base) Gastrointestional: No tender, No soft, No round, No distended, No pulsatile mass, No organomegaly, No guarding, No rebound, No tenderness, No hernia, No mass, audible bowel sounds, No abnormal bowel sounds, No abdominal bruits, No spleenomegaly, No other Extremities: No clubbing, No cyanosis, significant edema Neurologic/Psychiatric: grossly intact, power is 5/5 both on sides Skin: rash (macular rash on pubic skin) Results/Procedures: Labs Laboratory Tests 08/12/17 04:10: Sodium Level 144, Potassium Level 4.3, Chloride Level 90L, Carbon Dioxide Level 42H, Anion Gap 12, Blood Urea Nitrogen 21H, Creatinine 0.81, Estimat Glomerular Filtration Rate > 60, BUN/Creatinine Ratio 26, Glucose Level 129H, Calcium Level 9.4, Magnesium Level 2.0 08/12/17 11:40: Glucometer 187H 08/12/17 17:07: Glucometer 150H 08/12/17 20:20: Glucometer 165H Microbiology 08/09/17 Blood Culture - Preliminary, Resulted No growth A/P: Assessment/Dx: Shortness of breath, multifactorial (see below) Morbid obesity (BMI 49) with confirmed obesity-hypoventilation syndrome that is being treated by Dr Zuñiga, 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 LVEF is 35-40%. Grade I diastolic dysfunction. LA is severely dilated. Mild MR Persistent atrial fibrillation/flutter with variable rate control OAC with Eliquis for stroke prophylaxis. Compliant with full dose Eliquis since 07/20/17 H/o GI bleed in mid Jul 2017. Endoscopy of 07-15-[address] Reyes showed grade 3 esophagitis. Multiple, nonbleeding distal gastric erosions and shallow ulceres. Multiple nonbleeding duodenal erosions. HTN Anxiety Cellulitis Plan: Transesophageal echocardiogram and cardioversion performed yesterday. Patient converted to sinus rhythm. However later in the evening the patient converted back to atrial fibrillation. Discussed at length with the patient and family. Due to hypoxia secondary to obesity hypoventilation syndrome, sleep apnea and cardiomyopathy; modest success is expected with rhythm control therapy. However , due to his young age I would still like to continue to try rhythm control therapy. I've discussed at length with the patient and family and will start him on antiarrhythmic therapy. Amiodarone is not a good choice due to significant lung disease. Dofetilide is contraindicated due to baseline QTc interval of over 440 ms. I have therefore decided to start sotalol 80 mg twice a day as an inpatient and see the response of his QTc interval. Patient will continue beta evie, dig. Once sotalol is loaded, I will cardiovert again. This will likely happen on Tuesday. Patient will also continue IV Lasix for cardiomyopathy. His also on a beta evie, spironolactone and JANICE inhibitor. Thank you for your consultation. Please call me if you have any questions. Ulysses Baca MD, FACP, FACC, FSCAI, FHRS, CCDS Interventional Cardiology Cardiac Electrophysiology Vascular Medicine and Endovascular Interventions Angel BACA MD Aug 12, 2017 10:10 pm
[2017-08-13] VITALS: BP 168/81
[2017-08-13 04:00] VITALS: BP 161/80
[2017-08-13 04:21] LABS: ANION GAP 12 MMOL/L (5-14); BLOOD UREA NITROGEN 21 MG/DL (7-18); BUN/CREATININE RATIO 24; CALCIUM 9.6 MG/DL (8.5-10.1); CARBON DIOXIDE 42 MMOL/L (21-32); CHLORIDE 89 MMOL/L (98-107); CREATININE SERUM 0.87 MG/DL (0.60-1.30); GFR ESTIMATED > 60; GLUCOSE 153 MG/DL (70-105); MAGNESIUM 1.5 MG/DL (1.8-2.4); POTASSIUM 3.5 MMOL/L (3.6-5.0); SODIUM 143 MMOL/L (135-145)
[2017-08-13] MEDS: FUROSEMIDE 40 MG (LASIX) TAB PO SCH ×2 (07:07→16:30)
[2017-08-13] MEDS: inSUlin (REGULAR) HUMAN 1 UNIT/0.01 ML (CHARGE PER UNIT) SC SCH ×4 (07:07→20:45)
[2017-08-13] MEDS: SOTALOL 80 MG (BETAPACE) TAB PO SCH ×2 (07:07→18:39)
[2017-08-13] MEDS: PANTOPRAZOLE 40 MG (PROTONIX) TAB PO SCH (07:07)
[2017-08-13 08:00] VITALS: BP 155/89
--- NOTE | 2017-08-13 08:20 | Progress Note-Hospitalist ---
Progress Note HPI/CC on Admission Pt is a 36yoCM with a PMH of developmental delay, CHF, a fib, and IDDMII who presented to the ER last night with complaints of SOB. He is a poor historian due to developmental delay but was able to tell me that he started to feel SOB yesterday worse than he normally is. He reports compliance with his medications and denies any changes in his diet. He denies a cough or fever. He wears 2lpm of oxygen at home and is unable to tell me if he had needed morning. He has noticed some worsening swelling for the past few weeks. Per review of ER records he was also concerned about a rash on his groin but he denied any complaints during my interview. Progress Notes/Assess & Plan Date Seen 08/13/17 Time Seen by Provider: 08:00 Diagonsis/Assessment & Plan Patient is disappointed that he did not go home yesterday as planned but atrial fibrillation with rapid ventricular response recurred and required sotalol initiation and will have cardioversion tomorrow by cardiology Denies any pain Bowel movements are normal No urination problems Checked meds and labs No fever, vital signs stable, pleasant, up in bed Irregular irregular rhythm, clear to auscultation bilaterally but diminished in the bases due to habitus Chronic lower extremity edema with venous stasis changes but only trace amount of edema today Assessment: Atrial fibrillation with rapid ventricular response recurred therefore delaying discharge yesterday which required sotalol initiation along with cardioversion planned for tomorrow Morbid obesity Obstructive sleep apnea Hypertension Plan: Cardioversion per cardiology tomorrow Monitor heart rate while on sotalol Very complex issues considering morbid obesity and young age precludes anything but a poor prognosis MELODY MOLINA DO Aug 13, 2017 08:20
[2017-08-13] MEDS: APIXABAN 5 MG (ELIQUIS) TABLET PO SCH ×2 (09:46→20:45)
[2017-08-13] MEDS: DIGOXIN 0.25 MG (LANOXIN) TAB PO SCH (09:46)
[2017-08-13] MEDS: lisINopril 20 MG (ZESTRIL) TAB PO SCH (09:46)
[2017-08-13] MEDS: SPIRONOLACTONE 25 MG (ALDACTONE) TAB PO SCH (09:46)
[2017-08-13] MEDS: meTOprolol SUCCINATE 100 MG (TOPROL XL) TAB PO SCH (09:46)
[2017-08-13] MEDS: MICONAZOLE 2% POWDER (DESENEX AF) 90 GM TOP SCH ×4 (09:48→21:04)
[2017-08-13] MEDS: VANCOMYCIN 2000 MG/NS 500 ML IVPB IV SCH ×2 (10:25)
[2017-08-13 12:00] VITALS: BP 148/89
--- NOTE | 2017-08-13 13:20 | Cardiology Progress Note ---
Cardiology SOAP Progress Note Subjective: No significant complaints Objective: I&O/Vital Signs Vital Sign - Last 12Hours 08/13/17 08/13/17 08/13/17 08/13/17 04:00 04:00 07:00 08:00 Temp 97.8 96.3 Pulse 91 71 73 Resp 20 20 B/P (MAP) 161/80 155/89 Pulse Ox 93 98 O2 Delivery Nasal Cannula Nasal Cannula Nasal Cannula O2 Flow Rate 5.00 5.00 4.00 Weight (Pounds): 312 Weight (Ounces): 0.0 Weight (Calculated Kilograms): 141.710948 Constitutional: AAO x 3, well-developed, well-nourished, other (obese) Respiratory: No accessory muscle use, No respiratory distress, No chest tender , No chest expansion is symmetric, No chest is bilaterally symmetric, No lungs clear to percussion, No lungs clear to auscultation, No crackles, No rhonchi, No rales, No stridor, No wheezing, No pleural rub, other (fair to good bilateral air entry) Cardiovascular: irregularly irregular, S1 and S2, systolic murmur (faint YOU at cardiac base) Gastrointestional: No tender, No soft, No round, No distended, No pulsatile mass, No organomegaly, No guarding, No rebound, No tenderness, No hernia, No mass, audible bowel sounds, No abnormal bowel sounds, No abdominal bruits, No spleenomegaly, No other Extremities: No clubbing, No cyanosis, significant edema Neurologic/Psychiatric: grossly intact, power is 5/5 both on sides Skin: rash (macular rash on pubic skin) Results/Procedures: Labs Laboratory Tests 08/12/17 17:07: Glucometer 150H 08/12/17 20:20: Glucometer 165H 08/13/17 03:22: Sodium Level 143, Potassium Level 3.5L, Chloride Level 89L, Carbon Dioxide Level 42H, Anion Gap 12, Blood Urea Nitrogen 21H, Creatinine 0.87, Estimat Glomerular Filtration Rate > 60, BUN/Creatinine Ratio 24, Glucose Level 153H, Calcium Level 9.6, Magnesium Level 1.5L 08/13/17 11:52: Glucometer 165H Microbiology 08/09/17 Blood Culture - Preliminary, Resulted No growth A/P: Assessment/Dx: Shortness of breath, multifactorial (see below) Morbid obesity (BMI 49) with confirmed obesity-hypoventilation syndrome that is being treated by Dr Zuñiga, 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 LVEF is 35-40%. Grade I diastolic dysfunction. LA is severely dilated. Mild MR Persistent atrial fibrillation/flutter with variable rate control OAC with Eliquis for stroke prophylaxis. Compliant with full dose Eliquis since 07/20/17 H/o GI bleed in mid Jul 2017. Endoscopy of 07-15-[address] Reyes showed grade 3 esophagitis. Multiple, nonbleeding distal gastric erosions and shallow ulceres. Multiple nonbleeding duodenal erosions. HTN Anxiety Cellulitis Plan: Patient had transesophageal echocardiogram and cardioversion on . However the patient converted back to atrial fibrillation later in the evening. Patient was started on sotalol 80 mg twice a day. Regular EKGs do not reveal any significant lengthening of QTc interval. Repeat cardioversion is planned for tomorrow. However I have discussed with patient and family and informed that cardioversion and rhythm control may have modest success due to his pulmonary issues. Patient will continue on beta evie and digoxin. Patient will also continue IV Lasix for cardiomyopathy. His also on a beta evie, spironolactone and JANICE inhibitor. Thank you for your consultation. Please call me if you have any questions. Ulysses Baca MD, FACP, FACC, FSCAI, FHRS, CCDS Interventional Cardiology Cardiac Electrophysiology Vascular Medicine and Endovascular Interventions Angel BACA MD Aug 13, 2017 1:20 pm
[2017-08-13 16:00] VITALS: BP 159/85
[2017-08-13] MEDS ORDERED: POTASSIUM CL 10MEQ/50ML IVPB 50 ML IV SCH (17:15)
[2017-08-13] MEDS ORDERED: MAGNESIUM 1 GM/100 ML IVPB 100 ML IV ONE (17:15)
[2017-08-13] MEDS ORDERED: KCL 20 MEQ TAB (K-DUR) PO ONE (18:15)
[2017-08-13 20:00] VITALS: BP 147/69
[2017-08-13] MEDS: inSUlin DETERMIR 1 UNIT/0.01 ML (LEVEMIR) CHARGE PER UNIT SQ SCH (20:44)
[2017-08-14] VITALS (9 sets, daily range): BP systolic 138–170; BP diastolic 70–103
[2017-08-14 05:59] LABS: ANION GAP 10 MMOL/L (5-14); BLOOD UREA NITROGEN 20 MG/DL (7-18); BUN/CREATININE RATIO 24; CALCIUM 9.4 MG/DL (8.5-10.1); CARBON DIOXIDE 40 MMOL/L (21-32); CHLORIDE 94 MMOL/L (98-107); CREATININE SERUM 0.85 MG/DL (0.60-1.30); GFR ESTIMATED > 60; GLUCOSE 156 MG/DL (70-105); MAGNESIUM 1.9 MG/DL (1.8-2.4); SODIUM 144 MMOL/L (135-145)
[2017-08-14] MEDS: inSUlin (REGULAR) HUMAN 1 UNIT/0.01 ML (CHARGE PER UNIT) SC SCH ×4 (06:03→20:49)
[2017-08-14] MEDS ORDERED: proPOfol 200 MG/20 ML (DIPRIVAN) VIAL IV ONE (08:10)
[2017-08-14] MEDS ORDERED: NS IV 1000 ML 1,000 ML ONE (08:14)
--- NOTE | 2017-08-14 08:15 | Cardiology Progress Note ---
Cardiology SOAP Progress Note Subjective: no complaints Objective: I&O/Vital Signs Vital Sign - Last 12Hours 08/13/17 08/14/17 08/14/17 08/14/17 21:00 00:00 00:00 01:00 Temp 96.9 Pulse 72 57 Resp 20 B/P (MAP) 138/77 Pulse Ox 99 O2 Delivery Nasal Cannula Nasal Cannula Nasal Cannula O2 Flow Rate 4.00 4.00 4.00 08/14/17 08/14/17 08/14/17 04:00 04:00 06:11 Temp 96.6 Pulse 73 Resp 20 B/P (MAP) 141/72 Pulse Ox 99 98 O2 Delivery Nasal Cannula Nasal Cannula Nasal Cannula O2 Flow Rate 4.00 4.00 4.00 Weight (Pounds): 311 Weight (Ounces): 0.0 Weight (Calculated Kilograms): 141.794298 Constitutional: AAO x 3, well-developed, well-nourished, other (obese) Respiratory: No accessory muscle use, No respiratory distress, No chest tender , No chest expansion is symmetric, No chest is bilaterally symmetric, No lungs clear to percussion, No lungs clear to auscultation, No crackles, No rhonchi, No rales, No stridor, No wheezing, No pleural rub, other (fair to good bilateral air entry) Cardiovascular: irregularly irregular, S1 and S2, systolic murmur (faint YOU at cardiac base) Gastrointestional: No tender, No soft, No round, No distended, No pulsatile mass, No organomegaly, No guarding, No rebound, No tenderness, No hernia, No mass, audible bowel sounds, No abnormal bowel sounds, No abdominal bruits, No spleenomegaly, No other Extremities: No clubbing, No cyanosis, significant edema Neurologic/Psychiatric: grossly intact, power is 5/5 both on sides Skin: rash (macular rash on pubic skin) Results/Procedures: Labs Laboratory Tests 08/13/17 11:52: Glucometer 165H 08/13/17 16:25: Glucometer 208H 08/13/17 20:29: Glucometer 157H 08/14/17 05:25: Sodium Level 144, Potassium Level 4.0, Chloride Level 94L, Carbon Dioxide Level 40H, Anion Gap 10, Blood Urea Nitrogen 20H, Creatinine 0.85, Estimat Glomerular Filtration Rate > 60, BUN/Creatinine Ratio 24, Glucose Level 156H, Calcium Level 9.4, Magnesium Level 1.9 Microbiology 08/09/17 Blood Culture - Preliminary, Resulted No growth A/P: Assessment/Dx: Shortness of breath, multifactorial (see below) Morbid obesity (BMI 49) with confirmed obesity-hypoventilation syndrome that is being treated by Dr 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 LVEF is 35-40%. Grade I diastolic dysfunction. LA is severely dilated. Mild MR Persistent atrial fibrillation/flutter with variable rate control OAC with Eliquis for stroke prophylaxis. Compliant with full dose Eliquis since 07/20/17 H/o GI bleed in mid Jul 2017. Endoscopy of 07-15-[address] Reyes showed grade 3 esophagitis. Multiple, nonbleeding distal gastric erosions and shallow ulceres. Multiple nonbleeding duodenal erosions. HTN Anxiety Cellulitis Plan: Patient had transesophageal echocardiogram and cardioversion on . However the patient converted back to atrial fibrillation later in the evening. Patient was started on sotalol 80 mg twice a day. Regular EKGs do not reveal any significant lengthening of QTc interval. Repeat cardioversion is planned for today. However I have discussed with patient and family and informed that cardioversion and rhythm control may have modest success due to his pulmonary issues. Patient will continue on beta evie and digoxin. Patient will also continue IV Lasix for cardiomyopathy. His also on a beta evie, spironolactone and JANICE inhibitor. Thank you for your consultation. Please call me if you have any questions. Ulysses Baca MD, FACP, FACC, FSCAI, FHRS, CCDS Interventional Cardiology Cardiac Electrophysiology Vascular Medicine and Endovascular Interventions Angle BACA MD Aug 14, 2017 8:15 am
--- NOTE | 2017-08-14 08:16 | Cardiac Procedure Note-CS/ASA ---
Pre-Procedure Note Pre-Op Procedure Note H&P Reviewed The H&P was reviewed, patient examined and no changes noted. Date H&P Reviewed: Aug 14, 2017 Time H&P Reviewed: 08:15 Conscious Sedation Pre-Proced Time Reviewed: 08:16 ASA Class: 3 Airway Mallampati Classification: (nightmute appropriate class) I. II. III, IV Lungs Heart ASA score ASA 1: a normal healthy patient ASA 2: a patient with a mild systemic disease (mid diabetes, controlled hypertension, obesity ASA 3: a patient with a severe systemic disease that limits activity (angina , COPD, prior Myocardial infarction) ASA 4: a patient with an incapacitating disease that is a constant threat to life (CHF, renal failure) ASA 5: a moribund patient not expected to survive 24 hrs. (ruptured aneurysm) ASA 6: a declared brain patient whose organs are being harvested. For emergent operations, add the letter E after the classification Grade 1 Sedation Plan: Analgesia, Amnesia, Plan communicated to team members, Discussed options with patient/fam, Discussed risks with patient/fam Note The patient is an appropriate candidate to undergo the planned procedure, sedation, and anesthesia. The patient immediately re-assessed prior to indication. Angel BACA MD Aug 14, 2017 8:16 am
--- NOTE | 2017-08-14 08:46 | Anesthesia-Procedure Note ---
Procedure Start/Stop Time Date of Procedure: Aug 14, 2017 Start Time: 08:20 Stop Time: 08:35 Procedures/Interventions Procedures Called to sedate patient for Cardioversion. Chart reviewed, patient NPO since Midnight, MP-4 TMD-2, ASA 3. A total of 100mg Propofol was given. Airway maintained and vital signs stable. Patient tolerated well and care was returned to nurse. See nurses notes for vital signs. RONNY WEBER CRNA Aug 14, 2017 08:46
[2017-08-14] MEDS: lisINopril 20 MG (ZESTRIL) TAB PO SCH (09:13)
[2017-08-14] MEDS: meTOprolol SUCCINATE 100 MG (TOPROL XL) TAB PO SCH (09:13)
[2017-08-14] MEDS: FUROSEMIDE 40 MG (LASIX) TAB PO SCH ×2 (09:14→17:40)
[2017-08-14] MEDS: PANTOPRAZOLE 40 MG (PROTONIX) TAB PO SCH (09:14)
[2017-08-14] MEDS: DIGOXIN 0.25 MG (LANOXIN) TAB PO SCH (09:14)
[2017-08-14] MEDS: SOTALOL 80 MG (BETAPACE) TAB PO SCH ×2 (09:14→19:53)
[2017-08-14] MEDS: VANCOMYCIN 2000 MG/NS 500 ML IVPB IV SCH ×2 (09:15)
[2017-08-14] MEDS: SPIRONOLACTONE 25 MG (ALDACTONE) TAB PO SCH (09:15)
[2017-08-14] MEDS: APIXABAN 5 MG (ELIQUIS) TABLET PO SCH ×2 (09:15→20:48)
[2017-08-14] MEDS: MICONAZOLE 2% POWDER (DESENEX AF) 90 GM TOP SCH ×4 (09:19→20:49)
--- NOTE | 2017-08-14 11:09 | OPERATIVE REPORT ---
DATE OF SERVICE: 08/11/2017 DIRECT ELECTRICAL CARDIOVERSION PRIMARY PHYSICIAN: Brant Grant M.D. PRIMARY BUTTON CUTTING MACHINE OPERATOR: Jesse Reynolds M.D., MA, FACP, FAC PERFORMING PHYSICIAN: JONNIE BACA MD INDICATION: Atrial fibrillation with rapid ventricular rate. PREOPERATIVE DIAGNOSIS: Atrial fibrillation with rapid ventricular rate. POSTOPERATIVE DIAGNOSIS: Successful cardioversion to sinus rhythm. PROCEDURE DETAILS: The patient is a 36-year-old gentleman, who has history of atrial fibrillation with rapid ventricular rate. He also has history of nonischemic cardiomyopathy. He also has obesity, hypoventilation syndrome resulting in hypoxia. He presented with shortness of breath and was found to be in atrial fibrillation with rapid ventricular rate. He has been taking Eliquis for the last 2 to 3 weeks. Transesophageal echocardiogram was performed, which ruled out any thrombus in the left atrium or the left atrial appendage. Cardioversion was performed with synchronized 200 joules shock, which promptly converted the patient into sinus rhythm. The patient did not have any complication. CONCLUSION: Transesophageal echocardiogram assisted successful direct cardioversion to sinus rhythm. Job ID: [id number] DocumentID: [id number] Dictated Date: 08/13/2017 13:34:22 Optometry Teacher Date: 08/13/2017 14:18:34 Dictated By: JONNIE BACA MD [facility]
--- NOTE | 2017-08-14 13:19 | Discharge Summary-Hospitalist ---
Diagnosis/Chief Complaint Date of Admission Aug 09, 2017 at 01:00 Date of Discharge Discharge Date: Aug 14, 2017 Discharge Time: 1400 Admission Diagnosis Acutely decompensated systolic heart failure Discharge Diagnosis Assessment: Atrial fibrillation with rapid ventricular response recurred therefore delaying discharge Tuesday which required sotalol initiation along with cardioversion which was successful today Morbid obesity Obstructive sleep apnea Hypertension (1) Acute decompensated heart failure Status: Acute Assessment & Plan: Echo of 07/15/17: mod to severe dilation of LV, severe dilation of LA, LVEF approx 35% Continue on home meds (Lisinopril, Digoxin, Spironolactone, metoprolol) Cardiology Consult, appreciate recs strict I/Os Daily weights SEBASTIAN and cardioversion 08/11- successful (2) Atrial fibrillation Assessment & Plan: Continue eliquis, metoprolol Recent Endoscopy negative SEBASTIAN and cardioversion 08/12 (3) Cellulitis Status: Acute Assessment & Plan: On day #4 given history of previous cellulitis responding only to Plan for Zyvox at home (4) Insulin dependent diabetes mellitus Assessment & Plan: Continue home insulin SSI A (5) Essential (primary) hypertension Assessment & Plan: Continue Lisinopril, Spironlactone, Metoprolol BP improved with diuresis, mildly elevated still but anticipate improvement (6) Prophylactic measure Assessment & Plan: Eliquis Low Na diet Saline Lock Discharge Summary Discharge Physical Examination Allergies: Coded Allergies: No Known Drug Allergies (Unverified , 08/27/13) Vitals & I&Os Vital Signs Date Time Temp Pulse Resp B/P (MAP) Pulse Ox O2 Delivery O2 Flow Rate FiO2 08/14/17 10:30 68 21 157/75 99 Nasal Cannula 4.00 08/14/17 04:00 96.6 Hospital Course Please see previous DC summary for hospital course prior to Tuesday Notes from 08/14/17 Chart Review: No fever Vitals stable except BP elevated lead php developer: Cardioverted successfully Possible DC this afternoon Patient Interview: Pt is okay with DC today Pt confirms [facility] as pharmacy Physical exam stable. Pt states that Dr. Miles is okay with DC AFVSS, pleasant, O x 3, flat affect, sitting in chair, mother in chair in room RRR, CTAB diminished in bases Plan: Follow up with Dr. Ritchie this week along with Cardiology Meds to [facility] Scribed by Radha Stephens under the direct supervision of Dr. Molina. Labs (last 24 hrs) Laboratory Tests 08/13/17 16:25: Glucometer 208H 08/13/17 20:29: Glucometer 157H 08/14/17 05:25: Sodium Level 144, Potassium Level 4.0, Chloride Level 94L, Carbon Dioxide Level 40H, Anion Gap 10, Blood Urea Nitrogen 20H, Creatinine 0.85, Estimat Glomerular Filtration Rate > 60, BUN/Creatinine Ratio 24, Glucose Level 156H, Calcium Level 9.4, Magnesium Level 1.9 08/14/17 12:50: Microbiology 08/09/17 Blood Culture - Preliminary, Resulted No growth Pending Labs Laboratory Tests 08/14/17 12:50: Glucometer [Pending] Discharge Home Medications: Active Scripts Active Lantus Solostar (Insulin Glargine,Hum.rec.anlog) 100 Unit/1 Ml Insuln.pen 20 Units SQ HS please decrease dosage from 30 units to 20 units at bedtime. Linezolid 600 Mg Tablet 600 Mg PO BID 6 Days Lisinopril 20 Mg Tablet 40 Mg PO DAILY Lotrimin AF (Miconazole Nitrate) 90 Gm Powder 0 Gm TOP QID Reported Pantoprazole Sodium 40 Mg Tablet.dr 40 Mg PO DAILY Metoprolol Succinate 200 Mg Tab.er.24h 200 Mg PO DAILY Lisinopril 10 Mg Tablet 10 Mg PO DAILY Cardizem Cd (Diltiazem HCl) 240 Mg Cap.er.24h 240 Mg PO DAILY Hydroxyzine HCl 50 Mg Tablet 50 Mg PO Q6H PRN Coreg (Carvedilol) 25 Mg Tab 25 Mg PO BID Eliquis (Apixaban) 5 Mg Tablet 5 Mg PO BID Digoxin 250 Mcg Tablet 250 Mcg PO HS Metformin HCl 500 Mg Tablet 500 Mg PO TIDWM Hydrochlorothiazide 25 Mg Tablet 25 Mg PO DAILY Spironolactone 25 Mg Tablet 25 Mg PO HS Instructions to patient/family Please see electronic discharge instructions given to patient. Clinical Quality Measures AMI/AHF: D/C Medications Addressed: Dov inhibitors, Beta evie, Digoxin, Diuretic DVT/VTE Risk/Contraindication: Risk Factor Score Per Nursin RFS Level Per Nursing on Admit: 4+=Very High Problem Qualifiers (1) Atrial fibrillation: Atrial fibrillation type: persistent Qualified Codes: I48.1 - Persistent atrial fibrillation (2) Cellulitis: Site of cellulitis: other site Qualified Codes: L03.818 - Cellulitis of other sites MELODY MOLINA DO Aug 14, 2017 13:19
[2017-08-14] MEDS: inSUlin DETERMIR 1 UNIT/0.01 ML (LEVEMIR) CHARGE PER UNIT SQ SCH (20:49)
[2017-08-15] VITALS: BP 168/81
--- NOTE | 2017-08-15 00:57 | OPERATIVE REPORT ---
DATE OF SERVICE: 08/14/2017 DIRECT EXTERNAL ELECTRICAL CARDIOVERSION. PRIMARY ADVANCED MANUFACTURING CONSULTANT: Jesse Reynolds MD. PRIMARY PHYSICIAN: Dr. Ritchie. INDICATION: Atrial fibrillation with rapid ventricular rate. PREOPERATIVE DIAGNOSIS: Atrial fibrillation with rapid ventricular rate. POSTOPERATIVE DIAGNOSIS: Successful direct electrical cardioversion to sinus rhythm. HISTORY: This is a 36-year-old gentleman with history of hypoxia due to obesity, hypoventilation syndrome, sleep apnea. He also has history of congestive heart failure due to systolic dysfunction and nonischemic cardiomyopathy with an EF of 30% to 35%. He presented with atrial fibrillation with rapid ventricular rate. On 08/11/2017, transesophageal echocardiogram was performed, which did no show any thrombus in the left atrium and left atrial appendage. Direct external electrical cardioversion was performed, which was successful for a few hours; however, the patient converted back to atrial fibrillation after a few hours of staying in sinus rhythm. Therefore, the patient was started on sotalol 80 mg b.i.d. There is no significant QTC prolongation. The patient was again planned for cardioversion today. He has been on uninterrupted Eliquis for at least 3 to 3-1/2 weeks. DESCRIPTION OF PROCEDURE: After informed consent was taken, the synchronized direct electrical cardioversion was performed through external patches with 200 joules. This was done with anesthesia support. One shock successfully converted the patient to sinus rhythm, which was confirmed with 12-lead EKG. The patient did not have any complication including no neurological deficit. IMPRESSION AND CONCLUSION: 1. Successful direct electrical external cardioversion of atrial fibrillation to sinus rhythm. 2. Continue sotalol 80 mg twice a day. 3. The patient will be kept overnight to check further QTC intervals and hopefully will be discharged tomorrow to follow up with Dr. Jesse Parks. Job ID: [id number] DocumentID: [id number] Dictated Date: 08/14/2017 17:33:50 Milling Machine Set Up Operator Date: 08/15/2017 00:57:01 Dictated By: JONNIE BACA MD [email or web address]
[2017-08-15 04:00] VITALS: BP 160/83
[2017-08-15 04:41] LABS: ANION GAP 12 MMOL/L (5-14); BLOOD UREA NITROGEN 18 MG/DL (7-18); BUN/CREATININE RATIO 21; CALCIUM 9.4 MG/DL (8.5-10.1); CARBON DIOXIDE 36 MMOL/L (21-32); CHLORIDE 94 MMOL/L (98-107); CREATININE SERUM 0.85 MG/DL (0.60-1.30); GFR ESTIMATED > 60; GLUCOSE 153 MG/DL (70-105); MAGNESIUM 1.8 MG/DL (1.8-2.4); POTASSIUM 4.2 MMOL/L (3.6-5.0); SODIUM 142 MMOL/L (135-145)
[2017-08-15] MEDS: inSUlin (REGULAR) HUMAN 1 UNIT/0.01 ML (CHARGE PER UNIT) SC SCH ×4 (06:03→20:09)
[2017-08-15] MEDS: PANTOPRAZOLE 40 MG (PROTONIX) TAB PO SCH (06:06)
[2017-08-15] MEDS: FUROSEMIDE 40 MG (LASIX) TAB PO SCH ×2 (06:06→18:18)
--- NOTE | 2017-08-15 07:38 | Pulmonary Progress Note ---
Subjective Time Seen by Provider: 07:37 Subjective/Events-last exam Pt is doing better. S/p cardioversion. Exam Exam Vital Signs Date Time Temp Pulse Resp B/P (MAP) Pulse Ox O2 Delivery O2 Flow Rate FiO2 08/15/17 04:00 97.4 79 18 160/83 100 Nasal Cannula 2.00 08/15/17 04:00 Nasal Cannula 2.00 08/15/17 01:00 84 08/15/17 00:00 97.5 75 20 168/81 94 2.00 08/15/17 00:00 95 Nasal Cannula 2.00 08/14/17 21:00 Nasal Cannula 2.00 08/14/17 20:00 94 Nasal Cannula 2.00 08/14/17 20:00 97.3 72 18 152/78 94 Nasal Cannula 2.00 08/14/17 19:00 76 08/14/17 18:34 99 Nasal Cannula 3.00 08/14/17 16:00 97.0 08/14/17 16:00 72 21 140/82 99 Nasal Cannula 4.00 08/14/17 16:00 Nasal Cannula 4.00 08/14/17 12:49 82 08/14/17 12:00 97.1 08/14/17 12:00 Nasal Cannula 4.00 08/14/17 12:00 77 21 145/70 99 Nasal Cannula 4.00 08/14/17 10:30 68 21 157/75 99 Nasal Cannula 4.00 08/14/17 10:00 71 18 165/89 99 Nasal Cannula 4.00 08/14/17 09:00 73 19 160/84 99 Nasal Cannula 4.00 08/14/17 09:00 Nasal Cannula 4.00 08/14/17 08:30 73 170/103 93 Nasal Cannula 4.00 08/14/17 08:29 73 08/14/17 08:00 Nasal Cannula 4.00 General Appearance: No Apparent Distress, Obese HEENT: Moist Mucous Membranes Neck: Non Tender, Supple, JVD Respiratory: Lungs Clear, No Respiratory Distress Cardiovascular: Regular Rate, Rhythm, No Murmur Capillary Refill: Less Than 3 Seconds Gastrointestinal: normal bowel sounds, non tender, soft Extremity: Non Tender, No Calf Tenderness Neurologic/Psychiatric: Alert, Oriented x3 Skin: Normal Color, Warm/Dry, Other (erythema over mons pubis) Results Lab Laboratory Tests 08/14/17 05:25 08/15/17 03:30 Assessment/Plan Assessment/Plan Acute decompensated CHF -Cardiology is following Afib s/p cardioversion Morbid obesity with obesity hypoventilation syndrome -Vent to Mask has already been ordered for pt. -PT will benefit from vent to mask Dyspnea -Oxygen -noninvasive ventilation PRN and at night IDDM Afib Possible home today. Will have pt f.u with me in office. 232 Clinical Quality Measures AMI/AHF: D/C Medications Addressed: Dov inhibitors, Beta evie, Digoxin, Diuretic DVT/VTE Risk/Contraindication: Risk Factor Score Per Nursin RFS Level Per Nursing on Admit: 4+=Very High JESSIE MEYERS DO Aug 15, 2017 07:38
[2017-08-15 08:00] VITALS: BP 164/80
[2017-08-15] MEDS: SOTALOL 80 MG (BETAPACE) TAB PO SCH ×2 (09:26→18:18)
[2017-08-15] MEDS: DIGOXIN 0.25 MG (LANOXIN) TAB PO SCH (09:26)
[2017-08-15] MEDS: VANCOMYCIN 2000 MG/NS 500 ML IVPB IV SCH ×2 (09:26)
[2017-08-15] MEDS: meTOprolol SUCCINATE 100 MG (TOPROL XL) TAB PO SCH (09:27)
[2017-08-15] MEDS: MICONAZOLE 2% POWDER (DESENEX AF) 90 GM TOP SCH ×4 (09:27→21:09)
[2017-08-15] MEDS: SPIRONOLACTONE 25 MG (ALDACTONE) TAB PO SCH (09:27)
[2017-08-15] MEDS: APIXABAN 5 MG (ELIQUIS) TABLET PO SCH ×2 (09:27→21:06)
[2017-08-15] MEDS: lisINopril 20 MG (ZESTRIL) TAB PO SCH (09:27)
[2017-08-15 12:00] VITALS: BP 169/101
--- NOTE | 2017-08-15 14:03 | Progress Note-Hospitalist ---
Standard Progress Note Progress Notes/Assess & Plan Date Seen 08/15/17 Time Seen by Provider: 13:49 Diagnosis Acutely decompensated systolic heart failure Assess & Plan/Chief Complaint The patient is a 36-year-old white male known to me he has had multiple recent admissions for atrial fibrillation and cardiomyopathy. He underwent cardioversion yesterday and remains in a sinus rhythm on sotalol today. He is anxious to go home. It is known that his ejection fraction is in the 30-35 percent range and he has obvious cardiomegaly on chest x-ray. He has CPAP which he uses for sleep apnea although in the past he has not been dedicated to using it on a day-to-day basis. In addition he is found to have a concentrator at home. It would appear at this time that he is going to require O2 on a day and night basis. 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 It would appear imprudent to continue to drive others while using oxygen supplementation. Physical exam: The patient is sitting at the bedside table on oxygen. He is quite obese and on oxygen. Lungs show distant breath sounds. CV is also distant but regular. His diameter muscles both attempts at auscultation. Impression: Atrial fibrillation in sinus rhythm post cardioversion. 2.morbid obesity. 3.congestive cardiomyopathy with ejection fraction 30-35 percent. 4.sleep apnea/narcolepsy Plan: Social service consult and the mother and patient had been advised that he had should not be driving under the present circumstances. Labs Laboratory Tests 08/14/17 05:25 08/15/17 03:30 NICHO AGUILAR MD Aug 15, 2017 14:03
[2017-08-15 16:00] VITALS: BP 150/76
[2017-08-15 20:00] VITALS: BP 159/70
[2017-08-15] MEDS: inSUlin DETERMIR 1 UNIT/0.01 ML (LEVEMIR) CHARGE PER UNIT SQ SCH (21:06)
[2017-08-16 05:38] LABS: ANION GAP 12 MMOL/L (5-14); BLOOD UREA NITROGEN 21 MG/DL (7-18); BUN/CREATININE RATIO 27; CALCIUM 9.7 MG/DL (8.5-10.1); CARBON DIOXIDE 37 MMOL/L (21-32); CHLORIDE 94 MMOL/L (98-107); CREATININE SERUM 0.79 MG/DL (0.60-1.30); GFR ESTIMATED > 60; GLUCOSE 151 MG/DL (70-105); MAGNESIUM 1.7 MG/DL (1.8-2.4); POTASSIUM 3.9 MMOL/L (3.6-5.0); SODIUM 143 MMOL/L (135-145)
[2017-08-16] MEDS: inSUlin (REGULAR) HUMAN 1 UNIT/0.01 ML (CHARGE PER UNIT) SC SCH ×3 (05:41→14:25)
[2017-08-16] MEDS: PANTOPRAZOLE 40 MG (PROTONIX) TAB PO SCH (06:26)
[2017-08-16] MEDS: SOTALOL 80 MG (BETAPACE) TAB PO SCH (06:26)
[2017-08-16] MEDS: FUROSEMIDE 40 MG (LASIX) TAB PO SCH (06:26)
[2017-08-16 06:31] VITALS: BP 170/92
--- NOTE | 2017-08-16 07:30 | Pulmonary Progress Note ---
Subjective Time Seen by Provider: 07:29 Subjective/Events-last exam No complications noted. Pt is planning on going home today. Exam Exam Vital Signs Date Time Temp Pulse Resp B/P (MAP) Pulse Ox O2 Delivery O2 Flow Rate FiO2 08/16/17 06:31 98.0 88 18 170/92 97 Nasal Cannula 4.00 08/16/17 04:00 Nasal Cannula 4.00 08/16/17 01:00 60 08/16/17 00:00 Nasal Cannula 4.00 08/15/17 23:50 Nasal Cannula 3.00 08/15/17 21:00 Nasal Cannula 4.00 08/15/17 20:00 97 Nasal Cannula 4.00 08/15/17 20:00 97.0 75 18 159/70 97 Nasal Cannula 4.00 08/15/17 19:00 73 08/15/17 16:00 97.4 92 20 150/76 94 Nasal Cannula 4.00 08/15/17 16:00 Room Air 08/15/17 13:00 78 08/15/17 12:00 78 Room Air 08/15/17 12:00 97.4 86 20 169/101 95 Nasal Cannula 4.00 08/15/17 12:00 Room Air 08/15/17 09:00 Room Air 08/15/17 08:00 98.2 79 20 164/80 95 Room Air 08/15/17 08:00 Room Air General Appearance: No Apparent Distress, Obese HEENT: Moist Mucous Membranes Neck: Non Tender, Supple, JVD Respiratory: Lungs Clear, No Respiratory Distress Cardiovascular: Regular Rate, Rhythm, No Murmur Capillary Refill: Less Than 3 Seconds Gastrointestinal: normal bowel sounds, non tender, soft Extremity: Non Tender, No Calf Tenderness Neurologic/Psychiatric: Alert, Oriented x3 Skin: Normal Color, Warm/Dry, Other (erythema over mons pubis) Results Lab Laboratory Tests 08/15/17 03:30 08/16/17 04:30 Assessment/Plan Assessment/Plan Acute decompensated CHF -Cardiology is following Afib s/p cardioversion Morbid obesity with obesity hypoventilation syndrome -Vent to Mask has already been ordered for pt. -PT will benefit from vent to mask Dyspnea -Oxygen -noninvasive ventilation PRN and at night IDDM Afib Possible home today. Will have pt f.u with me in office. 232 Clinical Quality Measures AMI/AHF: D/C Medications Addressed: Dov inhibitors, Beta evie, Digoxin, Diuretic DVT/VTE Risk/Contraindication: Risk Factor Score Per Nursin RFS Level Per Nursing on Admit: 4+=Very High JESSIE MEYERS DO Aug 16, 2017 07:30
[2017-08-16 08:00] VITALS: BP 160/83
[2017-08-16] MEDS: lisINopril 20 MG (ZESTRIL) TAB PO SCH (08:21)
[2017-08-16] MEDS: SPIRONOLACTONE 25 MG (ALDACTONE) TAB PO SCH (08:21)
[2017-08-16] MEDS: DIGOXIN 0.25 MG (LANOXIN) TAB PO SCH (08:21)
[2017-08-16] MEDS: APIXABAN 5 MG (ELIQUIS) TABLET PO SCH (08:21)
[2017-08-16] MEDS: meTOprolol SUCCINATE 100 MG (TOPROL XL) TAB PO SCH (08:22)
[2017-08-16] MEDS: MICONAZOLE 2% POWDER (DESENEX AF) 90 GM TOP SCH ×2 (08:33→17:18)
--- NOTE | 2017-08-16 11:00 | Discharge Instructions ---
Discharge Instructions Patient Instructions Goal/Follow Up Appt: Management of dyspnea and control of heart rate Patient Instructions: Medications as prescribed. Oxygen at 2 L per nasal cannula 24 hours daily. Activity as tolerated Use your portable O2 when out of home Keep follow-up appointment with STUART Morris Return to [facility] For: Decline in condition Activity & Diet Discharge Diet: ADA Diet Activity as Tolerated: Yes NICHO AGUILAR MD Aug 16, 2017 11:00
[2017-08-16 12:00] VITALS: BP 156/80
--- NOTE | 2017-08-16 14:53 | Cardiology Progress Note ---
Cardiology SOAP Progress Note Subjective: patient was seen on 08/15/2017. This is a late entry Note. no cardiac symptoms Objective: I&O/Vital Signs Vital Sign - Last 12Hours 08/16/17 08/16/17 08/16/17 08/16/17 04:00 06:31 07:00 08:00 Temp 98.0 Pulse 88 78 Resp 18 B/P (MAP) 170/92 Pulse Ox 97 O2 Delivery Nasal Cannula Nasal Cannula Nasal Cannula O2 Flow Rate 4.00 4.00 3.00 08/16/17 08/16/17 08/16/17 09:00 09:13 13:00 Pulse 69 Pulse Ox 97 O2 Delivery Nasal Cannula O2 Flow Rate 3.00 4.00 Weight (Pounds): 309 Weight (Ounces): 5.0 Weight (Calculated Kilograms): 140.140646 Constitutional: AAO x 3, well-developed, well-nourished, other (obese) Respiratory: No accessory muscle use, No respiratory distress, No chest tender , No chest expansion is symmetric, No chest is bilaterally symmetric, No lungs clear to percussion, No lungs clear to auscultation, No crackles, No rhonchi, No rales, No stridor, No wheezing, No pleural rub, other (fair to good bilateral air entry) Cardiovascular: regular rate-rhythm, S1 and S2, systolic murmur (faint YOU at cardiac base) Gastrointestional: No tender, No soft, No round, No distended, No pulsatile mass, No organomegaly, No guarding, No rebound, No tenderness, No hernia, No mass, audible bowel sounds, No abnormal bowel sounds, No abdominal bruits, No spleenomegaly, No other Extremities: No clubbing, No cyanosis, significant edema Neurologic/Psychiatric: grossly intact, power is 5/5 both on sides Skin: rash (macular rash on pubic skin) Results/Procedures: Labs Laboratory Tests 08/15/17 18:19: Glucometer 205H 08/15/17 20:08: Glucometer 150H 08/16/17 04:30: Sodium Level 143, Potassium Level 3.9, Chloride Level 94L, Carbon Dioxide Level 37H, Anion Gap 12, Blood Urea Nitrogen 21H, Creatinine 0.79, Estimat Glomerular Filtration Rate > 60, BUN/Creatinine Ratio 27, Glucose Level 151H, Calcium Level 9.7, Magnesium Level 1.7L Microbiology 08/09/17 Blood Culture - Final, Complete No growth A/P: Assessment/Dx: Shortness of breath, multifactorial (see below) Morbid obesity (BMI 49) with confirmed obesity-hypoventilation syndrome that is being treated by Dr Zuñiga, his customs brokerage manager Acute systolic and diastolic CHF Dilated cardiomyopathy: Echocardiogram of 07-15-17 shows LV cavity size is significantly increased. LVEF is 35-40%. Grade I diastolic dysfunction. LA is severely dilated. Mild MR Persistent atrial fibrillation/flutter with variable rate control OAC with Eliquis for stroke prophylaxis. Compliant with full dose Eliquis since 07/20/17 H/o GI bleed in mid Jul 2017. Endoscopy of 07-15-[address] Reyes showed grade 3 esophagitis. Multiple, nonbleeding distal gastric erosions and shallow ulceres. Multiple nonbleeding duodenal erosions. HTN Anxiety Cellulitis Plan: Patient had transesophageal echocardiogram and cardioversion on . However the patient converted back to atrial fibrillation later in the evening. Patient was started on sotalol 80 mg twice a day. Regular EKGs do not reveal any significant lengthening of QTc interval. Repeat cardioversion was done on Tuesday which was successful.. However I have discussed with patient and family and informed that cardioversion and rhythm control may have modest success due to his pulmonary issues. Patient will continue on beta evie and digoxin. Patient will also continue IV Lasix for cardiomyopathy. His also on a beta evie, spironolactone and JANICE inhibitor. Thank you for your consultation. Please call me if you have any questions. Ulysses Baca MD, FACP, FACC, FSCAI, FHRS, CCDS Interventional Cardiology Cardiac Electrophysiology Vascular Medicine and Endovascular Interventions Angel BACA MD Aug 16, 2017 2:53 pm
--- NOTE | 2017-08-16 14:54 | Cardiology Progress Note ---
Cardiology SOAP Progress Note Subjective: no cardiac symptoms Objective: I&O/Vital Signs Vital Sign - Last 12Hours 08/16/17 08/16/17 08/16/17 08/16/17 04:00 06:31 07:00 08:00 Temp 98.0 Pulse 88 78 Resp 18 B/P (MAP) 170/92 Pulse Ox 97 O2 Delivery Nasal Cannula Nasal Cannula Nasal Cannula O2 Flow Rate 4.00 4.00 3.00 08/16/17 08/16/17 08/16/17 09:00 09:13 13:00 Pulse 69 Pulse Ox 97 O2 Delivery Nasal Cannula O2 Flow Rate 3.00 4.00 Weight (Pounds): 309 Weight (Ounces): 5.0 Weight (Calculated Kilograms): 140.210927 Constitutional: AAO x 3, well-developed, well-nourished, other (obese) Respiratory: No accessory muscle use, No respiratory distress, No chest tender , No chest expansion is symmetric, No chest is bilaterally symmetric, No lungs clear to percussion, No lungs clear to auscultation, No crackles, No rhonchi, No rales, No stridor, No wheezing, No pleural rub, other (fair to good bilateral air entry) Cardiovascular: regular rate-rhythm, S1 and S2, systolic murmur (faint YOU at cardiac base) Gastrointestional: No tender, No soft, No round, No distended, No pulsatile mass, No organomegaly, No guarding, No rebound, No tenderness, No hernia, No mass, audible bowel sounds, No abnormal bowel sounds, No abdominal bruits, No spleenomegaly, No other Extremities: No clubbing, No cyanosis, significant edema Neurologic/Psychiatric: grossly intact, power is 5/5 both on sides Skin: rash (macular rash on pubic skin) Results/Procedures: Labs Laboratory Tests 08/15/17 18:19: Glucometer 205H 08/15/17 20:08: Glucometer 150H 08/16/17 04:30: Sodium Level 143, Potassium Level 3.9, Chloride Level 94L, Carbon Dioxide Level 37H, Anion Gap 12, Blood Urea Nitrogen 21H, Creatinine 0.79, Estimat Glomerular Filtration Rate > 60, BUN/Creatinine Ratio 27, Glucose Level 151H, Calcium Level 9.7, Magnesium Level 1.7L Microbiology 08/09/17 Blood Culture - Final, Complete No growth A/P: Assessment/Dx: Shortness of breath, multifactorial (see below) Morbid obesity (BMI 49) with confirmed obesity-hypoventilation syndrome that is being treated by Dr Zuñiga, his statistics tutor Acute systolic and diastolic CHF Dilated cardiomyopathy: Echocardiogram of 07-15-17 shows LV cavity size is significantly increased. LVEF is 35-40%. Grade I diastolic dysfunction. LA is severely dilated. Mild MR Persistent atrial fibrillation/flutter with variable rate control OAC with Eliquis for stroke prophylaxis. Compliant with full dose Eliquis since 07/20/17 H/o GI bleed in mid Jul 2017. Endoscopy of 07-15-[address] Reyes showed grade 3 esophagitis. Multiple, nonbleeding distal gastric erosions and shallow ulceres. Multiple nonbleeding duodenal erosions. HTN Anxiety Cellulitis Plan: Patient had transesophageal echocardiogram and cardioversion on . However the patient converted back to atrial fibrillation later in the evening. Patient was started on sotalol 80 mg twice a day. Regular EKGs do not reveal any significant lengthening of QTc interval. Repeat cardioversion was done on Tuesday which was successful.. However I have discussed with patient and family and informed that cardioversion and rhythm control may have modest success due to his pulmonary issues. Patient will continue on beta evie and digoxin. Patient will also continue IV Lasix for cardiomyopathy. His also on a beta evie, spironolactone and JANICE inhibitor. patient can be discharged [facility] and follow with Dr. Reynolds for cardiology and myself for electrophysiology. Thank you for your consultation. Please call me if you have any questions. Ulysses Baca MD, FACP, FACC, FSCAI, FHRS, CCDS Interventional Cardiology Cardiac Electrophysiology Vascular Medicine and Endovascular Interventions Angel BACA MD Aug 16, 2017 2:54 pm
[2017-08-16] MEDS ORDERED: AMLO5TAB4 PO (15:22)
[2017-08-16] MEDS ORDERED: INSU100I10 SQ ×2 (15:30→15:38)
[2017-08-16 16:00] VITALS: BP 162/78
[2017-08-16 17:10] VITALS: BP 162/78
[2017-08-16] MEDS ORDERED: FURO40TA4 PO (17:24)
[2017-08-16] MEDS ORDERED: POTA-51 PO (17:24)
== END 2017-08-16 17:10 | disposition home or self-care (01) | DRG 292 ==
LOC: EDUNIT# 23:02 → ER 23:03 → ICU 08-09 01:00 → EDPENDDISDT 08-14 14:00
PROVIDERS: ADMIT Internal Medicine; ATTEND Internal Medicine
PROC: 5A2204Z Restoration of Cardiac Rhythm, Single (ICD-10-PCS; principal; 2017-08-11)
PROC: 5A2204Z Restoration of Cardiac Rhythm, Single (ICD-10-PCS; 2017-08-14)
DX: I50.41 Acute combined systolic (congestive) and diastolic (congestive) heart failure (principal); I48.1 Persistent atrial fibrillation; L03.314 Cellulitis of groin; I42.0 Dilated cardiomyopathy; E66.2 Morbid (severe) obesity with alveolar hypoventilation; Z68.42 Body mass index [BMI] 45.0-49.9, adult; E11.9 Type 2 diabetes mellitus without complications; I11.0 Hypertensive heart disease with heart failure; F41.9 Anxiety disorder, unspecified; K21.9 Gastro-esophageal reflux disease without esophagitis; K59.09 Other constipation; E78.00 Pure hypercholesterolemia, unspecified; F89 Unspecified disorder of psychological development; Z79.01 Long term (current) use of anticoagulants; Z79.4 Long term (current) use of insulin; G47.419 Narcolepsy without cataplexy
CPT/HCPCS: 36415; 71020; 80048; 80053; 80061; 80162; 80202; 82805; 82962; 83605; 83735; 83874; 83880; 84484; 85025; 85379; 85610; 85730; 87040; 93005; 93041; 93320; 93325; 94640; 94761; 96374; 96375

== ENCOUNTER → 2017-08-25 | Day surgery (SDC) | payer BC ==
[~2017-08-25] VITALS: Ht 175.3 cm; Wt 133.8 kg
[2017-08-25] VITALS (7 sets, daily range): BP systolic 145–180; BP diastolic 60–94
[~2017-08-25] MED LIST changes: +AMLO5TAB4 PO; +APIX5TAB PO; +ATROPINE INJECTION 1 MG/10 ML SYR (ABBOTT) ONE; +CRV25T PO; +DILT240C86 PO; +FENO145T20 PO; +FURO40TA4 PO; +HYDR50TA76 PO; +INFLUENZA TRIvalent 2017-2018 0.5 ML/45 MCG SYR IM ONE; +INSU100V5 SQ; +LINE600T7 PO; +LISI-552 PO; +LOSA100T28; -METO-274 PO; +METO-395 PO; +METO200T4 PO; +MICO90PO TOP; +MIDAZOLAM 2 MG/2 ML (VERSED) VIAL ONE; +MIDAZOLAM 5 MG/5 ML (VERSED) VIAL ONE; +NS IV 1000 ML 1,000 ML IV SCH; +POTA-51 PO; +SOTA80TA PO; +proPOfol 200 MG/20 ML (DIPRIVAN) VIAL IV ONE
[2017-08-25 09:09] LABS: MEAN PLATELET VOLUME 11.2 FL (7.4-10.4); RED BLOOD COUNT 4.59 10^6/uL (4.35-5.85); RED CELL DISTRIBUTION WIDTH 15.2 % (10.0-14.5); WHITE BLOOD COUNT 7.9 10^3/uL (4.3-11.0)
[2017-08-25 09:24] LABS: INR 1.2 (0.8-1.4); PROTHROMBIN TIME PATIENT 15.6 SEC (12.2-14.7)
[2017-08-25 09:33] LABS: ALANINE AMINOTRANSFERASE 36 U/L (0-55); ALBUMIN 4.1 GM/DL (3.2-4.5); ANION GAP 12 MMOL/L (5-14); ASPARTATE AMINO TRANSFERASE 29 U/L (5-34); BILIRUBIN,TOTAL 0.7 MG/DL (0.1-1.0); BLOOD UREA NITROGEN 27 MG/DL (7-18); BUN/CREATININE RATIO 25; CALCIUM 10.1 MG/DL (8.5-10.1); CARBON DIOXIDE 26 MMOL/L (21-32); CHLORIDE 101 MMOL/L (98-107); CREATININE SERUM 1.06 MG/DL (0.60-1.30); GFR ESTIMATED > 60; GLUCOSE 182 MG/DL (70-105); POTASSIUM 4.9 MMOL/L (3.6-5.0); SODIUM 139 MMOL/L (135-145); TOTAL PROTEIN 7.7 GM/DL (6.4-8.2)
--- NOTE | 2017-08-25 10:01 | Progress Note-Standard ---
Standard Progress Note Progress Notes/Assess & Plan Date Seen by Provider: Aug 25, 2017 Time Seen by Provider: 09:41 Progress/Assessment & Plan Anesthesia Note ([id number]) Called to [facility] for sedation (MAC) for cardioversion. Pt S/E. Versed 2 mg IV and Propofol 50 mg IV given for sedation. VSS and ETCO2 maintained throughout. Return to SR after first cardioversion. Pt tolerated the procedure well. Will be available if needed. JEREMI PHILLIPS DO Aug 25, 2017 10:01
--- NOTE | 2017-08-25 11:48 | Cardiology Post Procedure Note ---
Post-Procedure Note Physician (s)/Benefits Manager (s) Physician Angel BACA MD Pre-Procedure Diagnosis Pre-Procedure Diagnosis: AF with RVR Post-Procedure Note Procedure Start Date: Aug 25, 2017 Procedure Start Time: 09:30 Name of Procedure: direct electrical cardioversion Findings/Procedure Note atrial fibrillation/atrial flutter with rapid ventricular rate; successful synchronized 200 J shock Conversion to normal sinus rhythm. Estimated blood loss (mL): none Contrast Amount: none Post-Procedure Diagnosis Post-operative diagnosis: successful electrical cardioversion of atrial fibrillation to normal sinus rhythm. Angel BACA MD Aug 25, 2017 11:48 am
--- NOTE | 2017-08-26 03:17 | OPERATIVE REPORT ---
DATE OF SERVICE: DIRECT ELECTRICAL CARDIOVERSION. INDICATION: Atrial fibrillation/atrial flutter with rapid ventricular rate. PREOPERATIVE DIAGNOSIS: Atrial fibrillation/atrial flutter with rapid ventricular rate. POSTOPERATIVE DIAGNOSIS: Successful electrical cardioversion. PROCEDURE IN DETAIL: This is a 36-year-old gentleman who has a history of obesity hypoventilation syndrome, sleep apnea. He also has a history of atrial fibrillation with rapid ventricular rate. He was started on antiarrhythmic therapy. Atrial cardioversion is recommended. Cardioversion was performed with anesthesia help. A single external 200 joules electrical shock was given, which resulted in successfully converting to sinus rhythm. The patient tolerated the procedure well and did not have any complications. IMPRESSION/CONCLUSION: 1. Successful direct electrical cardioversion from atrial fibrillation to sinus rhythm. 2. Continue sotalol 80 mg twice a day and oral anticoagulation therapy. 3. Follow up in one week. Job ID: [id number] DocumentID: [id number] Dictated Date: 08/25/2017 13:12:18 Carbon Paper Machine Operator Date: 08/25/2017 20:03:20 Dictated By: JONNIE BACA MD
== END ==
LOC: CATH 08:29
PROVIDERS: ATTEND Internal Medicine Interventional Cardiology
DX: I48.0 Paroxysmal atrial fibrillation (principal); I48.92 Unspecified atrial flutter; E66.2 Morbid (severe) obesity with alveolar hypoventilation; Z68.41 Body mass index [BMI] 40.0-44.9, adult; I11.0 Hypertensive heart disease with heart failure; I50.20 Unspecified systolic (congestive) heart failure; I42.9 Cardiomyopathy, unspecified; Z79.4 Long term (current) use of insulin; Z79.01 Long term (current) use of anticoagulants
CPT/HCPCS: 36415; 80053; 85027; 85610; 85730; 87081; 92960; 93005

== ENCOUNTER → 2017-11-09 | Outpatient (CLI) | payer BC ==
[~2017-11-09] MED LIST changes: -ATROPINE INJECTION 1 MG/10 ML SYR (ABBOTT) ONE; -INFLUENZA TRIvalent 2017-2018 0.5 ML/45 MCG SYR IM ONE; -METO200T4 PO; +METO200T48 PO; -MIDAZOLAM 2 MG/2 ML (VERSED) VIAL ONE; -MIDAZOLAM 5 MG/5 ML (VERSED) VIAL ONE; -NS IV 1000 ML 1,000 ML IV SCH; -proPOfol 200 MG/20 ML (DIPRIVAN) VIAL IV ONE
[2017-11-09 09:20] LABS: BASOPHILS % (AUTO) 1 % (0-10); EOSINOPHILS # (AUTO) 0.1 10^3/uL (0.0-0.3); EOSINOPHILS % (AUTO) 2 % (0-10); HEMATOCRIT 43 % (40-54); HEMOGLOBIN 14.5 G/DL (13.3-17.7); LYMPHOCYTES # (AUTO) 1.9 X 10^3 (1.0-4.0); LYMPHOCYTES % (AUTO) 28 % (12-44); MEAN CORPUSCULAR HEMOGLOBIN 30 PG (25-34); MEAN CORPUSCULAR HGB CONC 34 G/DL (32-36); MEAN CORPUSCULAR VOLUME 89 FL (80-99); MEAN PLATELET VOLUME 11.2 FL (7.4-10.4); MONOCYTES # (AUTO) 0.7 X 10^3 (0.0-1.0); MONOCYTES % (AUTO) 10 % (0-12); NEUTROPHILS # (AUTO) 4.2 X 10^3 (1.8-7.8); NEUTROPHILS % (AUTO) 60 % (42-75); PLATELET COUNT 152 10^3/uL (130-400); RED BLOOD COUNT 4.79 10^6/uL (4.35-5.85); WHITE BLOOD COUNT 6.9 10^3/uL (4.3-11.0)
[2017-11-09 09:47] LABS: ALANINE AMINOTRANSFERASE 69 U/L (0-55); ALBUMIN 4.2 GM/DL (3.2-4.5); ALKALINE PHOSPHATASE 84 U/L (40-136); BILIRUBIN,TOTAL 0.7 MG/DL (0.1-1.0); BUN/CREATININE RATIO 16; CALCIUM 10.2 MG/DL (8.5-10.1); CARBON DIOXIDE 25 MMOL/L (21-32); CHLORIDE 93 MMOL/L (98-107); CREATININE SERUM 0.93 MG/DL (0.60-1.30); GFR ESTIMATED > 60; MAGNESIUM 2.1 MG/DL (1.8-2.4); POTASSIUM 4.8 MMOL/L (3.6-5.0); SODIUM 132 MMOL/L (135-145)
[2017-11-09 10:08] LABS: GLUCOSE 408 MG/DL (70-105)
== END ==
LOC: LAB 08:58
PROVIDERS: ATTEND Nurse Practitioner Family
DX: I11.0 Hypertensive heart disease with heart failure (principal); I50.21 Acute systolic (congestive) heart failure; I48.0 Paroxysmal atrial fibrillation
CPT/HCPCS: 36415; 80053; 83735; 84443; 85025

== ENCOUNTER 2018-01-30 14:09 | Emergency (ER) | payer BC ==
[~2018-01-30] VITALS: Ht 160 cm; Wt 136.1 kg
[~2018-01-30 14:09] MED LIST changes: -NIFE-7 PO; +NIFE30TA89 PO
[2018-01-30] MEDS ORDERED: EPINEPHrine INJECTION 1 MG/ML AMP INJ ONE (14:11)
[2018-01-30] MEDS ORDERED: ATROPINE INJECTION 1 MG/10 ML SYR (ABBOTT) INJ ONE (14:11)
--- NOTE | 2018-01-30 14:54 | ED CPR ---
HPI-CPR General Chief Complaint: Code Blue Stated Complaint: CODE Nursing Triage Note: pt presents to ed at 1411 via ems with CPR in progress, ED staff continues CPR. pt intubated at 1350 by ems with combi tube. IO to l lower leg and ns infusing upon arrival. 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 Pt mother reports pt came to her from outside and reported he told her he couldnt breath. She reprots she got him conected to his portable oxygen and got him in the car when he became unresponsive and she called EMS at that time. ems reports upon their arrival to scene that pt was in asystole and they initiated cpr. Sepsis Screen: No Definite Risk Source of Information: EMS, Family (MOM), Old Records (ALL MH IS FROM OLD RECORDS) History of Present Illness Date Seen by Provider: Jan 30, 2018 Time Seen by Provider: 14:11 Initial Comments PT ARRIVES VIA EMS FROM HOME PT IS IN FULL ARREST WITH CPR IN PROGRESS PT IS INTUBATED WITH COMBITUBE--EMS REPORTS PINK FROTHY SPUTUM ON INTUBATION I/O IN LEFT LOWER LEG PT HAS RECEIVED EPI X 4, DEFIBRILLATED X 2 PRIOR TO ARRIVAL INITIAL RHYTHM WAS ASYSTOLE AND PT WAS APNEIC ON EMS ARRIVAL AT ONE POINT PT WENT FROM [place] TO [facility], THEN TO [place], BACK INTO [facility], THEN BACK INTO [place] PT IS IN ASYSTOLE ON ARRIVAL TO ER PT HAS NOT HAD A PULSE OR ANY RESPIRATORY EFFORT AT ANY TIME MOM STATES HE CAME IN FROM OUTSIDE, C/O SHORTNESS OF BREATH, HE PUT ON HIS PORTABLE OXYGEN, AND SHE WAS IN PROCESS OF BRINGING HIM TO HOSPITAL. HE HAD MADE IT TO THE CAR AND BECAME UNRESPONSIVE AND NOT BREATHING EMS WAS CALLED AT 1327--PT HAD BEEN DOWN APPROXIMATELY 5 MINUTES PRIOR TO THEIR ARRIVAL, FROM TIME OF CALL. CPR WAS NOT INITIATED PRIOR TO THEIR ARRIVAL, THEY THEN INITIATED CPR AND ACLS PROTOCOL WHEN THEY ARRIVED AT SCENE. ACCUCHECK WAS 221 FOR EMS PT HAS HISTORY OF CHF WITH EF OF 35%, ATRIAL FIB WITH RVR, IDDM, HTN, MORBID OBESITY PCP: DR. CHAVEZ DINING ROOM MAID: DR. CUELLAR Allergies and Home Medications Allergies Coded Allergies: No Known Drug Allergies (Unverified , 08/27/13) Home Medications Amlodipine Besylate 5 Mg Tablet, 5 MG PO DAILY Prescribed by: LYNETTE CARTER on 08/16/17 1522 Apixaban 5 Mg Tablet, 5 MG PO BID, (Reported) Digoxin 250 Mcg Tablet, 250 MCG PO HS, (Reported) Diltiazem HCl 240 Mg Cap.er.24h, 240 MG PO DAILY, (Reported) Furosemide 40 Mg Tablet, 40 MG PO DAILY@ Prescribed by: LYNETTE CARTER on 08/16/17 172 Hydrochlorothiazide 25 Mg Tablet, 25 MG PO DAILY, (Reported) Hydroxyzine HCl 50 Mg Tablet, 50 MG PO Q6H PRN for ANXIETY, (Reported) Insulin Glargine,Hum.rec.anlog 100 Unit/1 Ml Insuln.pen, 20 UNITS SQ BID please change dosage from 30 units at hs to 20 units BID. Prescribed by: LYNETTE CARTER on 08/16/171537 Linezolid 600 Mg Tablet, 600 MG PO BID Prescribed by: MARIA DE JESUS TODD on 08/12/17813 Lisinopril 20 Mg Tablet, 40 MG PO DAILY Prescribed by: MARIA DE JESUS TODD on 08/12/17813 Metformin HCl 500 Mg Tablet, 500 MG PO TIDWM, (Reported) Miconazole Nitrate 90 Gm Powder, 0 GM TOP QID Prescribed by: MARIA DE JESUS TODD on 08/12/17813 Potassium Chloride 20 Meq Tablet.er, 20 MEQ PO BID Prescribed by: LYNETTE CARTER on 08/16/171723 Sotalol HCl 80 Mg Tablet, 80 MG PO BID, (Reported) Spironolactone 25 Mg Tablet, 25 MG PO HS, (Reported) Patient Home Medication List Home Medication List Reviewed: Yes Review of Systems Constitutional: other (UNABLE TO OBTAIN) Past [id number] Hx Patient Social History Alcohol Use: Denies Use Recreational Drug Use: No Smoking Status: Never a Smoker 2nd Hand Smoke Exposure: No Recent Foreign Travel: No Contact w/Someone Who Travel: No Recent Infectious Disease Expo: No Recent Hopitalizations: No Immunizations Up To Date Tetanus Booster (TDap): Unknown PED Vaccines UTD: Yes Date of Influenza Vaccine: Aug 28, 2013 Seasonal Allergies Seasonal Allergies: No Surgeries History of Surgeries: No Respiratory History of Respiratory Disorde: Yes Respiratory Disorders: Sleep Apnea Currently Using CPAP: No Currently Using BIPAP: No Cardiovascular History of Cardiac Disorders: Yes (CHF) Cardiac Disorders: Atrial Fibrillation, High Cholesterol, Hypertension Neurological History of Neurological Disord: Yes Neurological Disorders: Developmental Disorder Genitourinary History of Genitourinary Disor: No Gastrointestinal History of Gastrointestinal Di: Yes Gastrointestinal Disorders: Chronic Diarrhea, Ulcer Musculoskeletal History of Musculoskeletal Dis: No Endocrine History of Endocrine Disorders: Yes Endocrine Disorders: Diabetes, Insulin dep HEENT History of HEENT Disorders: No Loss of Vision: Denies Hearing Impairment: Denies Cancer History of Cancer: No Psychosocial History of Psychiatric Problem: No Integumentary History of Skin or Integumenta: No Blood Transfusions History of Blood Disorders: No Adverse Reaction to a Blood Tr: No Family Medical History Significant Family History: Heart Disease, CVA, Hypertension Family Medial History: Blood clots 19 FATHER FH: stroke 19 FATHER Respiratory disorder 19 FATHER Physical Exam Vital Signs Vital Signs - First Documented 01/30/18 14:26 Pulse 0 Resp 0 Pulse Ox 0 O2 Delivery Ambu Bag O2 Flow Rate 15.00 Capillary Refill : NONE General Appearance: Obese (MORBIDLY), Other (FULL ARREST--INTUBATED WITH CPR IN PROGRESS) Respiratory: Other (APNEIC, BREATH SOUNDS EQUAL WITH BAGGING) Cardiovascular: Other (PULSELESS) Neurologic/Psychiatric: Other (UNRESPONSIVE) Skin: Cool (PT WAS OUTSIDE IN CAR--TEMP 30 DEGREES OUTSIDE), Pallor Progress/Results/Core Measures Results/Orders Vital Signs/I&O Vital Sign - Last 12Hours 01/30/18 01/30/18 14:26 14:26 Pulse 0 Resp 0 0 B/P (MAP) Pulse Ox 0 O2 Delivery Ambu Bag O2 Flow Rate 15.00 Critical Care Note Critical Care Start Time: 14:11 Stop Time: 14:28 Total Time (minutes) 17 Date of : Jan 30, 2018 Time of : 14:28 Progress SEE CODE BLUE NOTES FOR DETAILS PT IN ASYSTOLE ON ARRIVAL PT GIVEN EPI X 2, ATROPINE X 2 --DID BRIEFLY GO INTO [facility] AFTER EACH DOSE, BUT VERY RAPIDLY DETERIORATED TO ASYSTOLE WHEN DOWN TIME OF AT LEAST 50 MINUTES WAS CONFIRMED BY EMS, AND NO RETURN OF PULSE OR SPONTANEOUS RESPIRATIONS AT ANY TIME. CODE WAS CALLED AT 1418 Departure Communication (Admissions) Progress Notes 1428--PAGING DR. CUELLAR 1429--SPOKE WITH DR. CUELLAR, INFORMED HIM OF PT'S 1432--CALLED DR. CHAVEZ'S OFFICE, HE IS OUT TODAY, CELL # [phone] [id number]--MESSAGE LEFT ON DR. CHAVEZ'S CELL PHONE [phone]--SPOKE WITH DR. CHAVEZ AND INFORMED HIM OF PT'S , HE WILL SIGN CERTIFICATE [employer] IS HERE ON PT'S ARRIVAL WITH EMS, AND IS AWARE OF PT'S . NO NEED FOR AUTOPSY. Impression Impression: Primary Impression: Cardiopulmonary arrest Additional Impression: Unsuccessful cardiopulmonary resuscitation Disposition: 20 Condition: Departure-Patient Inst. Referrals: TATA CHAVEZ MD (PCP/Family) Primary Care Physician LORI ORTEGA DO Jan 30, 2018 14:53
[2018-01-30 16:06] VITALS: BP 0/0
== END 2018-01-30 16:06 | disposition expired ==
LOC: EDUNIT# 14:09 → ER 14:10
DX: I46.9 Cardiac arrest, cause unspecified (principal); E11.9 Type 2 diabetes mellitus without complications; F60.9 Personality disorder, unspecified; I48.0 Paroxysmal atrial fibrillation; E78.00 Pure hypercholesterolemia, unspecified; I11.0 Hypertensive heart disease with heart failure; I50.9 Heart failure, unspecified; G47.30 Sleep apnea, unspecified; Z79.4 Long term (current) use of insulin; Z87.19 Personal history of other diseases of the digestive system
CPT/HCPCS: 92950; 93041; 99291